=== PATIENT | female | born 1955 | race Caucasian/White ===

== ENCOUNTER 2017-07-02 08:35 | Emergency (ER) | payer OTHER ==
[~2017-07-02] VITALS: Wt 71.5 kg
[2017-07-02] MEDS ORDERED: KETOROLAC 30 MG INJ IM STA (09:55)
[2017-07-02] MEDS ORDERED: predniSONE 20 MG TAB PO ONE (10:00)
--- NOTE | 2017-07-02 11:01 | RADRPT ---
PROCEDURE: XR Lumbar Spine. CLINICAL INDICATION: Lumbar spine pain with radicular symptoms. TECHNIQUE: AP and lateral view of the lumbar spine were obtained. COMPARISON: No prior studies are available for comparison. FINDINGS: The alignment of the lumbar spine is within normal limits. There are anterior osteophytes from L2-S 1 with mild narrowing of the intervertebral disc spaces at L4-5 and L5-S1. There are mild associate d discogenic endplate changes at these levels. The vertebral body heights and marrow density are nor mal in appearance. There is moderate facet spondylosis at L4-5 and L5-S1 with suggestion of neural foraminal narrowing at these levels. The remaining neural foramina appear patent. The paraspinal s oft tissues unremarkable. There is no evidence of fracture. There are mild degenerate changes of t he interspinous articulations from L3-L5. There is mild atherosclerosis of the abdominal aorta with out evidence of aneurysm formation. Partial visualization of the pelvis demonstrates bilateral hip r eplacements. IMPRESSION: 1. Mild to moderate spondylosis/degenerative enthesopathy at L4-5 and L5-S1. 2. Moderate facet spondylosis at L4-5 and L5-S1 with suggestion of neural foraminal narrowing at th lien levels. 3. No evidence of fracture. RPTAT: HGAS .Bret Dudley MD, Date Time Electronically viewed and signed by .Bret Dudley MD, on 07/02/2017 11:00 .S/
--- NOTE | 2017-07-02 11:16 | ERD ---
ER Documentation Chief Complaint Date/Time DATE: 07/02/17 TIME: 11:14 Chief Complaint back pain rad down rle HPI This is a 62-year-old female presents emergency department today complaining of right-sided back pain that radiated down into her right leg for the past month and worse over the past 5 days. States she has a history of hip replacement. Denies any fevers or chills, loss of bowel or bladder control. ROS All systems reviewed and are negative except as per history of present illness. Medications Home Meds Reported Medications Fluticasone Propionate* (Fluticasone Propionate* Nasal) 50 Mcg/[place] - 16 Gm [place].susp, 1 SPRAY NASAL DAILY, #1 BOTTLE TO EACH NOSTRIL 07/10/17 Nitroglycerin* (Nitrostat*) 0.4 Mg Tab.subl, 0.4 MG SL Q5MIN Y for CHEST PAIN, BOTTLE 07/10/17 Diclofenac Sodium* (Diclofenac Sodium*) 75 Mg Tablet.dr, 75 MG PO BID, #60 TAB 07/10/17 Loratadine* (Loratadine*) 10 Mg Tablet, 10 MG PO DAILY, #30 TAB 07/10/17 Gabapentin* (Gabapentin*) 300 Mg Capsule, 300 MG PO DAILY, #60 CAP 07/10/17 Pantoprazole* (Pantoprazole*) 40 Mg Tablet.dr, 40 MG PO DAILY, TAB 07/10/17 Levothyroxine Sodium* (Levothyroxine Sodium*) 150 Mcg Tablet, 150 MCG PO BEFORE BREAKFAST, #30 TAB 07/10/17 Aspirin* (Aspirin* EC) 81 Mg Tablet.dr, 81 MG PO DAILY, TAB 07/10/17 Atorvastatin* (Atorvastatin*) 40 Mg Tablet, 40 MG PO QHS, #30 TAB 07/10/17 Amlodipine Besylate* (Amlodipine Besylate*) 10 Mg Tablet, 10 MG PO DAILY, #30 TAB 07/10/17 Furosemide* (Furosemide*) 20 Mg Tablet, 20 MG PO DAILY, #60 TAB 07/10/17 Losartan-Hydrochlorothiazide (Losartan-HCTZ) 100-25 Mg Tab, 1 TAB PO DAILY, TAB 07/10/17 Potassium Chloride* (Potassium Chloride*) 8 Meq Capsule.er, 8 MEQ PO DAILY, CAP 07/10/17 Carvedilol* (Carvedilol*) 6.25 Mg Tablet, 6.25 MG PO BID, #60 TAB 07/10/17 Metformin Hcl* (Metformin Hcl*) 1,000 Mg Tablet, 1000 MG PO WITH BREAKFAST DINNE , #60 TAB 07/10/17 Discontinued Scripts Prednisone* (Prednisone*) 20 Mg Tab, 40 MG PO DAILY for 4 Days, TAB Prov:MORRIS POON PA-C 07/02/17 Naproxen* (Naprosyn*) 500 Mg Tablet, 500 MG PO BID Y for PAIN AND/OR INFLAMMATION, #30 TAB Prov:MORRIS POON PA-C 07/02/17 Tramadol HCl (Tramadol HCl) 50 Mg Tablet, 50 MG PO Q4 Y for PAIN, #20 TAB Prov:MORRIS POON PA-C 07/02/17 Allergies Allergies: Coded Allergies: No Known Allergy (Unverified , 07/10/17) Physical Exam Vitals Physical Exam Const: NAD Head: Atraumatic Eyes: Normal Conjunctiva ENT: Normal External Ears, Nose and Mouth. Neck: Full range of motion..~ No meningismus. Resp: Clear to auscultation bilaterally Cardio: Regular rate and rhythm, no murmurs Abd: Soft, non tender, non distended. Normal bowel sounds Skin: No petechiae or rashes Back: Lumbar spine midline tenderness and right-sided paraspinal tenderness. Unable to assess range motion secondary to pain. Positive straight leg raise. Pulses 2+. Distal neurovascularly intact. Ext: No cyanosis, or edema Neur: Awake and alert Psych: Normal Mood and Affect Results 24 hrs Current Medications Medications (Trade) Dose Ordered Sig/Yuniel Route PRN Reason Start Time Stop Time Status Last Admin Dose Admin Ketorolac Tromethamine (Toradol) 30 mg ONCE STAT IM 07/02/17 09:55 07/02/17 09:57 DC 07/02/17 10:12 Prednisone (Prednisone) 60 mg ONCE ONCE PO 07/02/17 10:00 07/02/17 10:01 DC 07/02/17 10:10 DIAGNOSTIC IMAGING REPORT Patient: SAMEER DOAN : 1955 Age: 62 Sex: F MR #: [id number] DOS: 07/02/17 0000 Ordering MD: MORRIS POON PA-C Location: [facility] Room/Bed: PROCEDURE: XR Lumbar Spine. CLINICAL INDICATION: Lumbar spine pain with radicular symptoms. TECHNIQUE: AP and lateral view of the lumbar spine were obtained. COMPARISON: No prior studies are available for comparison. FINDINGS: The alignment of the lumbar spine is within normal limits. There are anterior osteophytes from L2-S1 with mild narrowing of the intervertebral disc spaces at L4-5 and L5-S1. There are mild associated discogenic endplate changes at these levels. The vertebral body heights and marrow density are normal in appearance. There is moderate facet spondylosis at L4-5 and L5-S1 with suggestion of neural foraminal narrowing at these levels. The remaining neural foramina appear patent. The paraspinal soft tissues unremarkable. There is no evidence of fracture. There are mild degenerate changes of the interspinous articulations from L3-L5. There is mild atherosclerosis of the abdominal aorta without evidence of aneurysm formation. Partial visualization of the pelvis demonstrates bilateral hip replacements. IMPRESSION: 1. Mild to moderate spondylosis/degenerative enthesopathy at L4-5 and L5-S1. 2. Moderate facet spondylosis at L4-5 and L5-S1 with suggestion of neural foraminal narrowing at these levels. 3. No evidence of fracture. RPTAT: HGAS .Bret Dudley MD, MD Date Time Electronically viewed and signed by .Bret Dudley MD, MD on 07/02/2017 11: 00 .S/ CC: MORRIS POON PA-C DIAGNOSTIC IMAGING REPORT Patient: SAMEER DOAN : 1955 Age: 62 Sex: F MR #: [id number] DOS: 07/02/17 0000 Ordering MD: MORRIS POON PA-C Location: [facility] Room/Bed: PROCEDURE: XR right Hip. CLINICAL INDICATION: Right hip pain. Radicular symptoms. TECHNIQUE: AP and frog lateral views of the right hip were performed. COMPARISON: None. FINDINGS: No fracture or dislocation. Intact right total hip prosthesis with anatomic alignment. Delete The right pelvis and sacroiliac joint as well as visualized lumbar spine are unremarkable. No soft tissue abnormality. IMPRESSION: 1. Intact right total hip prosthesis without evidence of hardware failure, fracture, or dislocation. RPTAT:AAJJ Physician Jonathan Date Time Electronically viewed and signed by Wally Coulter Physician on 07/02/2017 11:22 OSMAN/ CC: MORRIS POON PA-C Procedures/MDM This is a 62-year-old female presents to the emergency department today complaining of right-sided back pain and leg pain for the past month worsening over the past 5 days. Patient to have a positive straight leg raising given her complaints and age I did obtain images of the lumbar spine and hip. Per the radiology report images of the lumbar spine show mild to moderate spondylosis and degenerative changes at L4 and 5 and L5 and S1. There is moderate facet spondylosis at L4 and 5 and L5 and S1 with suggestion of neural foraminal narrowing at these levels. There is no evidence of acute fracture. This is likely the source of the patient's pain. I have explained this to the patient. I explained to the patient that she needs a follow-up with her primary care doctor and her sourcing specialist for further evaluation and management. Suspicion for cauda equina or abscess. Patient is afebrile and otherwise well-appearing. Per the radiology report images of the right hipShow intact right total hip prosthesis without evidence of hardware failure, fracture dislocation. Patient was given Toradol, prednisone here in the emergency department. Patient does have a history of diabetes however she states that her blood sugars well controlled under 110. Patient was given a prescription for tramadol , Naprosyn, prednisone for home At this time the patient is stable for discharge and outpatient management. Patient should follow up with their PCP in the next 1-2 days. They may return to the emergency department sooner for any persistent or worsening of symptoms. Patient understood and agreed with the plan. Departure Diagnosis: Primary Impression: Back pain Back pain location: low back pain Chronicity: unspecified Back pain laterality: right Sciatica presence: with sciatica Sciatica laterality: sciatica of right side Qualified Code: M54.41 - Right-sided low back pain with right-sided sciatica, unspecified chronicity Condition: MORRIS Tran PA-C Jul 02, 2017 11:16
--- NOTE | 2017-07-02 11:22 | RADRPT ---
PROCEDURE: XR right Hip. CLINICAL INDICATION: Right hip pain. Radicular symptoms. TECHNIQUE: AP and frog lateral views of the right hip were performed. COMPARISON: None. FINDINGS: No fracture or dislocation. Intact right total hip prosthesis with anatomic alignment. Delete The right pelvis and sacroiliac joint as well as visualized lumbar spine are unremarkable. No soft tis charmaine abnormality. IMPRESSION: 1. Intact right total hip prosthesis without evidence of hardware failure, fracture, or dislocation. RPTAT:AAJJ Wally Coulter Physician Date Time Electronically viewed and signed by Physician Jonathan on 07/02/2017 11:22 OSMAN/
[2017-07-02] MEDS ORDERED: TRAM50TA2 PO (12:05)
[2017-07-02] MEDS ORDERED: NAPR-260 PO (12:06)
[2017-07-02] MEDS ORDERED: PRED20TA PO (12:07)
== END 2017-07-02 12:44 | disposition home or self-care (01) ==
LOC: FTE 08:35 → EDBD 08:35 → FTE 12:44
DX: M54.41 Lumbago with sciatica, right side (principal); Z79.82 Long term (current) use of aspirin
CPT/HCPCS: 72100; 73510; 96372; J1885; J7512; Z7502

== ENCOUNTER 2017-07-10 15:14 | Inpatient (IN) | payer OTHER ==
[~2017-07-10] VITALS: Ht 160 cm; Wt 65.0 kg
[~2017-07-10 15:14] MED LIST: NAPR-260 PO; PRED20TA PO; TRAM50TA2 PO
--- NOTE | 2017-07-10 17:39 | ERA ---
ER Documentation Chief Complaint Date/Time DATE: 07/10/17 TIME: 17:37 Chief Complaint syncope while eating, alert and oriented now, c/o headache and dizziness HPI Patient is a 62-year-old female who presents with gradual onset, constant, mild to moderate diffuse headache since this morning associated with dizziness, nausea, chest pressure and shortness of breath. Prior to ER arrival, her grandson heard a thud in the kitchen, and found the patient moaning on the ground. The patient was amnestic to the events. She continues to complain of headache, shortness of breath, chest pressure, and dizziness. She denies focal weakness or numbness. She denies significant back pain. She denies fever or vomiting. ROS All systems reviewed and are negative except as per history of present illness. Medications Home Meds Reported Medications Fluticasone Propionate* (Fluticasone Propionate* Nasal) 50 Mcg/[place] - 16 Gm [place].susp, 1 SPRAY NASAL DAILY, #1 BOTTLE TO EACH NOSTRIL 07/10/17 Nitroglycerin* (Nitrostat*) 0.4 Mg Tab.subl, 0.4 MG SL Q5MIN Y for CHEST PAIN, BOTTLE 07/10/17 Diclofenac Sodium* (Diclofenac Sodium*) 75 Mg Tablet.dr, 75 MG PO BID, #60 TAB 07/10/17 Loratadine* (Loratadine*) 10 Mg Tablet, 10 MG PO DAILY, #30 TAB 07/10/17 Gabapentin* (Gabapentin*) 300 Mg Capsule, 300 MG PO DAILY, #60 CAP 07/10/17 Pantoprazole* (Pantoprazole*) 40 Mg Tablet.dr, 40 MG PO DAILY, TAB 07/10/17 Levothyroxine Sodium* (Levothyroxine Sodium*) 150 Mcg Tablet, 150 MCG PO BEFORE BREAKFAST, #30 TAB 07/10/17 Aspirin* (Aspirin* EC) 81 Mg Tablet.dr, 81 MG PO DAILY, TAB 07/10/17 Atorvastatin* (Atorvastatin*) 40 Mg Tablet, 40 MG PO QHS, #30 TAB 07/10/17 Amlodipine Besylate* (Amlodipine Besylate*) 10 Mg Tablet, 10 MG PO DAILY, #30 TAB 07/10/17 Furosemide* (Furosemide*) 20 Mg Tablet, 20 MG PO DAILY, #60 TAB 07/10/17 Losartan-Hydrochlorothiazide (Losartan-HCTZ) 100-25 Mg Tab, 1 TAB PO DAILY, TAB 07/10/17 Potassium Chloride* (Potassium Chloride*) 8 Meq Capsule.er, 8 MEQ PO DAILY, CAP 07/10/17 Carvedilol* (Carvedilol*) 6.25 Mg Tablet, 6.25 MG PO BID, #60 TAB 07/10/17 Metformin Hcl* (Metformin Hcl*) 1,000 Mg Tablet, 1000 MG PO WITH BREAKFAST DINNE , #60 TAB 07/10/17 Discontinued Scripts Prednisone* (Prednisone*) 20 Mg Tab, 40 MG PO DAILY for 4 Days, TAB Prov:MORRIS POON PA-C 07/02/17 Naproxen* (Naprosyn*) 500 Mg Tablet, 500 MG PO BID Y for PAIN AND/OR INFLAMMATION, #30 TAB Prov:MORRIS POON PA-C 07/02/17 Tramadol HCl (Tramadol HCl) 50 Mg Tablet, 50 MG PO Q4 Y for PAIN, #20 TAB Prov:MORRIS POON PA-C 07/02/17 Allergies Allergies: Coded Allergies: No Known Allergy (Unverified , 07/10/17) PMhx/Soc Past medical history: Diabetes mellitus, hypertension, hyperlipidemia Past surgical history: Bilateral hip replacement Social history: Denies tobacco or alcohol FmHx Family History: No coronary disease, No diabetes Physical Exam Vitals Vital Signs Date Time Temp Pulse Resp B/P Pulse Ox O2 Delivery O2 Flow Rate FiO2 07/10/17 20:41 100.8 72 20 109/80 99 Room Air 07/10/17 18:42 74 20 128/77 99 Room Air 07/10/17 17:52 74 20 116/71 99 Room Air 07/10/17 15:34 100.8 91 18 118/55 98 Physical Exam Const: Alert, slightly lethargic, no acute distress Head: Atraumatic Eyes: Normal Conjunctiva, No pallor, no icterus ENT: Normal External Ears, Nose and Mouth.Mucous membranes moist Neck: Full range of motion..~ No meningismus.No midline tenderness Resp: Clear to auscultation bilaterally, No wheezes, no rales Cardio: Regular rate and rhythm, no murmurs Abd: Soft, non tender, non distended. Skin: No petechiae or rashes Back: No midline or flank tenderness Ext: No cyanosis, or edema Neur: Awake and alert, Cranial nerves II through XII intact bilaterally, strength and sensation full in 4 extremities, no pronator drift, no dysmetria. Psych: Normal Mood and Affect Result Diagram: 07/10/17 1740 07/10/17 1740 Results 24 hrs Laboratory Tests Test 07/10/17 17:40 07/10/17 18:55 07/10/17 19:39 07/10/17 19:40 White Blood Count 21.510^3/ul Red Blood Count 5.1810^6/ul Hemoglobin 13.3g/dl Hematocrit 38.8% Mean Corpuscular Volume 74.9fl Mean Corpuscular Hemoglobin 25.7pg Mean Corpuscular Hemoglobin Concent 34.3g/dl Red Cell Distribution Width 14.1% Platelet Count 97967^3/UL Mean Platelet Volume 10.0fl Neutrophils % 83.7% Lymphocytes % 7.7% Monocytes % 7.9% Eosinophils % 0.0% Basophils % 0.1% Nucleated Red Blood Cells % 0.0/100WBC Neutrophils # (Manual) 18.010^3/ul Lymphocytes # 1.710^3/ul Monocytes # 1.710^3/ul Eosinophils # 0.010^3/ul Basophils # 0.010^3/ul Nucleated Red Blood Cells # 0.010^3/ul Prothrombin Time 13.7Sec 13.9Sec Prothrombin Time Ratio 1.1 1.1 INR International Normalized Ratio 1.05 1.07 Activated Partial Thromboplast Time 28.2Sec 29.0Sec D-Dimer 545.40ng/ml D-Dimer Comment Sodium Level 131mmol/L Potassium Level 2.9mmol/L Chloride Level 91mmol/L Carbon Dioxide Level 29mmol/L Anion Gap 14 Blood Urea Nitrogen 11mg/dl Creatinine 0.65mg/dl Glucose Level 132mg/dl Calcium Level 9.1mg/dl Troponin I < 0.012ng/ml B-Type Natriuretic Peptide 180PG/ML Urine Color YELLOW Urine Clarity SLIGHTLY CLOUDY Urine pH 7.0 Urine Specific [place] 1.011 Urine Ketones NEGATIVEmg/dL Urine Nitrite POSITIVEmg/dL Urine Bilirubin NEGATIVEmg/dL Urine Urobilinogen NEGATIVEmg/dL Urine Leukocyte Esterase 2+Ryne/ul Urine Microscopic RBC 0/HPF Urine Microscopic WBC 28/HPF Urine Bacteria FEW/HPF Urine Hemoglobin NEGATIVEmg/dL Urine Glucose NEGATIVEmg/dL Urine Total Protein NEGATIVEmg/dl Bedside Glucose 115mg/dL Test 07/10/17 19:45 Lactic Acid Level 1.5mmol/L Total Bilirubin 0.4mg/dl Direct Bilirubin 0.00mg/dl Indirect Bilirubin 0.4mg/dl Aspartate Amino Transf (AST/SGOT) 24IU/L Alanine Aminotransferase (ALT/SGPT) 28IU/L Alkaline Phosphatase 102IU/L Total Protein 7.3g/dl Albumin 4.1g/dl Current Medications Medications (Trade) Dose Ordered Sig/Yuniel Route PRN Reason Start Time Stop Time Status Last Admin Dose Admin Sodium Chloride 2140 ml 2,140 ml BOLUS OVER 2 HOURS STAT IV* 07/10/17 18:26 07/10/17 18:28 DC 07/10/17 18:51 Ceftriaxone Sodium 50 ml @ 100 mls/hr ONCE STAT IVPB 07/10/17 18:26 07/10/17 18:55 DC 07/10/17 19:40 Potassium Chloride (KCl 40 MEQ/250 ML NS) 250 ml @ 62.5 mls/hr ONCE ONCE IVPB 07/10/17 21:30 07/11/17 01:29 07/10/17 21:34 Ondansetron HCl (Zofran Inj) 4 mg ER BRIDGE PRN IV NAUSEA AND/OR VOMITING 07/10/17 22:30 07/11/17 22:29 Acetaminophen 650 mg 650 mg ER BRIDGE PRN PO MILD PAIN/FEVER 07/10/17 22:30 07/11/17 22:29 Sodium Chloride (NS) 1,000 ml @ 80 mls/hr [id number] IV 07/10/17 22:15 IV Flush (NS 3 ml) 3 ml PER PROTOCOL IV 07/10/17 22:30 Ondansetron HCl (Zofran Inj) 4 mg Q6H PRN IV NAUSEA AND/OR VOMITING 07/10/17 22:30 Acetaminophen (Tylenol Tab) 650 mg Q6H PRN PO PAIN LEVEL 1-3 OR FEVER 07/10/17 22:30 Docusate Sodium (Colace) 100 mg Q12H PRN PO CONSTIPATION 07/10/17 22:30 Bisacodyl (Dulcolax) 5 mg DAILY PRN PO CONSTIPATION 07/10/17 22:30 Famotidine (Pepcid) 20 mg Q12 PO 07/10/17 22:30 Potassium Chloride (Klor-Con 20) 40 meq ONCE ONCE PO 07/10/17 22:33 07/10/17 22:34 DC Amlodipine Besylate (Norvasc) 10 mg DAILY PO 07/11/17 09:00 Aspirin (Halfprin) 81 mg DAILY PO 07/11/17 09:00 Atorvastatin Calcium (Lipitor) 40 mg QHS PO 07/11/17 21:00 Fluticasone Propionate (Flonase 0.05% Nasal) 1 spray DAILY NASAL 07/11/17 09:00 Gabapentin (Neurontin) 300 mg DAILY PO 07/11/17 09:00 Levothyroxine Sodium (Synthroid) 150 mcg BEFORE BREAKFAST PO 07/11/17 07:00 Loratadine (Claritin) 10 mg DAILY PO 07/11/17 09:00 Procedures/MDM EKG read by me: Time 1536, rate 89 Rhythm: Normal sinus [place]: Left axis deviation Intervals: Left bundle branch block, prolonged QTC ST-T waves: No scar posterior criteria Ectopy: No Q-waves: No Impression: Sinus rhythm with left bundle branch block MDM: Patient is a 62-year-old female with brief syncopal episode at home. She had been feelingnauseous, short of breath and had a headache prior to the episode. There is no evidence of injury related to the episode. On arrival in the ER, she was noted to have a fever to 100.8. She was also found to have a significant leukocytosis. She had normal heart rate and blood pressure. She was found to have a UTI. Sepsis protocol was initiated, with weight-based fluids and antibiotics given, culture sent, and lactic acid check. Lactic acid is not elevated. A head CT was unremarkable, and the patient had no focal neurological deficit. The patient was nexus negative. Other labs revealed hypokalemia, and the patient was given IV potassium. The patient had a negative troponin and a d-dimer less than 10 times age. Given that she was found to have a urinary tract infection which I believe explains many of her symptoms, I do not believe that she needs further workup for pulmonary embolism. She will be admitted to a monitored bed for further infectious workup and electrolyte correction. She appeared improved after receiving IV fluids and has had stable vital signs. Departure Diagnosis: Primary Impression: Syncope Qualified Code: R55 - Syncope, unspecified syncope type Additional Impressions: Pyelonephritis Hypokalemia Condition: RIKA Jones MD Jul 10, 2017 17:39
[2017-07-10 17:52] LABS: ABNORMAL IP MESSAGE 1; BASOPHILS % 0.1 % (0.0-2.0); HEMATOCRIT 38.8 % (37.0-47.0); HEMOGLOBIN 13.3 g/dl (12.0-16.0); LYMPHOCYTES # 1.7 10^3/ul (0.8-2.9); LYMPHOCYTES % 7.7 % (15.0-51.0); MEAN CORPUSCULAR HEMOGLOBIN 25.7 pg (29.0-33.0); MEAN CORPUSCULAR HGB CONC 34.3 g/dl (32.0-37.0); MEAN CORPUSCULAR VOLUME 74.9 fl (82.0-101.0); MONOCYTE # 1.7 10^3/ul (0.3-0.9); MONOCYTES % 7.9 % (0.0-11.0); NEUTROPHILS % 83.7 % (39.0-77.0); PLATELET COUNT 327 10^3/UL (140-415); RED BLOOD COUNT 5.18 10^6/ul (4.20-5.40); RED CELL DISTRIBUTION WIDTH 14.1 % (11.5-14.5); WHITE BLOOD COUNT 21.5 10^3/ul (4.8-10.8)
[2017-07-10 18:07] LABS: POSITIVE DIFF @See below
[2017-07-10] MEDS ORDERED: CEFTRIAXONE 1 GM/50 ML (PMX) 50 ML IVPB STA (18:26)
[2017-07-10] MEDS ORDERED: SODIUM CHLORIDE 0.9% 1L BAG IV* STA (18:26)
[2017-07-10 19:02] LABS: D-DIMER 545.4 ng/ml (<460)
[2017-07-10 19:03] LABS: INR 1.05; PROTIME 13.7 Sec (12.2-14.2); PT RATIO 1.1
[2017-07-10 19:04] LABS: PARTIAL THROMBOPLASTIN TIME 28.2 Sec (25.0-35.0)
--- NOTE | 2017-07-10 19:04 | RADRPT ---
PROCEDURE: CT Head without. CLINICAL INDICATION: Syncope. TECHNIQUE: The study was performed utilizing a multi-slice, multidetector CT scanner. Direct spira l 1 mm axial sections were obtained through the head without the use of intravenous contrast materia l. 1 or more of the following dose reduction techniques were utilized: Automated exposure control, adjustment of the mA and/or kV according to patient's size, iterative reconstruction technique. Co christiano and sagittal reformations were obtained. The images were reviewed on a PACS workstation. RADIATION DOSE: CTDIvol: 43.1 mGyDLP: 823.9 mGy-cm COMPARISON: No prior studies are available for comparison. FINDINGS: There is no intracranial hemorrhage, extra-axial fluid collection, mass lesion, midline shift or hyd rocephalus. There is a benign-appearing calcification along the inner table of the right frontal ca lvarium (coronal series image 16), which may be related to focal area of hyperostosis. The ventricle s, sulci and cisterns are within normal limits. The white matter is unremarkable. The marcos-white m atter differentiation is preserved. The basal cisterns are patent. The midline structures are inta ct. The orbits, calvarium and extracranial soft tissues are normal in appearance. The visualized pa ranasal sinuses, mastoid air cells and middle ear cavities are normally aerated. IMPRESSION: 1. No acute intracranial abnormality. No intracranial hemorrhage, extra-axial fluid collection, ma ss lesion or hydrocephalous. 2. Benign appearing calcification overlying the right frontal lobe, which may be related to a small meningioma versus focal area of hyperostosis. RPTAT: HGAS .Bret Dudley MD, Date Time Electronically viewed and signed by .Bret Dudley MD, on 07/10/2017 18:51 .S/
--- NOTE | 2017-07-10 19:04 | RADRPT ---
PROCEDURE: XR Chest 1 View. CLINICAL INDICATION: Shortness of breath, syncope. TECHNIQUE: AP view of the chest was obtained. COMPARISON: None. FINDINGS: The cardiomediastinal silhouette is within normal limits. The lungs are hypoinflated. No consolidati ons are identified. No pneumothorax is seen. Osseous structures are intact. IMPRESSION: Hypoinflated, clear lungs. RPTAT: AA .Herve Mari MD, Date Time Electronically viewed and signed by .Herve Mari MD, MD on 07/10/2017 18:25 .P/
[2017-07-10 19:11] LABS: ANION GAP 14 (8-16); BLOOD UREA NITROGEN 11 mg/dl (7-20); CALCIUM 9.1 mg/dl (8.4-10.2); CARBON DIOXIDE 29 mmol/L (21-31); CHLORIDE 91 mmol/L (97-110); CREATININE 0.65 mg/dl (0.44-1.00); GLUCOSE 132 mg/dl (70-220); SODIUM 131 mmol/L (135-144)
[2017-07-10 19:19] LABS: B-TYPE NATRIURETIC PEPTIDE 180 PG/ML (0-125)
[2017-07-10] MEDS ORDERED: POTA8CAP PO (19:22)
[2017-07-10] MEDS ORDERED: METF1000 PO (19:22)
[2017-07-10] MEDS ORDERED: CARV6.2579 PO (19:22)
[2017-07-10] MEDS ORDERED: AMLO-147 PO (19:23)
[2017-07-10] MEDS ORDERED: LOSA1TAB20 PO (19:23)
[2017-07-10] MEDS ORDERED: FURO20TA3 PO (19:23)
[2017-07-10] MEDS ORDERED: ATOR40TA68 PO (19:24)
[2017-07-10] MEDS ORDERED: LEVO150T67 PO (19:24)
[2017-07-10] MEDS ORDERED: ASPI-664 PO (19:24)
[2017-07-10] MEDS ORDERED: PANT40TA4 PO (19:25)
[2017-07-10] MEDS ORDERED: GABA300C16 PO (19:25)
[2017-07-10] MEDS ORDERED: LORA10TA3 PO (19:26)
[2017-07-10] MEDS ORDERED: NIT4 SL (19:26)
[2017-07-10] MEDS ORDERED: DICL75TA2 PO (19:26)
[2017-07-10 19:27] LABS: POTASSIUM 2.9 mmol/L (3.5-5.1); TROPONIN-I < 0.012 ng/ml (0.00-0.12)
[2017-07-10] MEDS ORDERED: FLUT16SP17 NASAL (19:27)
[2017-07-10 19:44] LABS: ADD UMIC YES; UR ASCORBIC ACID NEGATIVE (NEGATIVE); UR BACTERIA FEW /HPF (NONE SEEN); UR BILIRUBIN (Dip) NEGATIVE (NEGATIVE); UR BLOOD (Dip) NEGATIVE (NEGATIVE); UR CLARITY SLIGHTLY CLOUDY (CLEAR); UR COLOR YELLOW (YELLOW); UR GLUCOSE (Dip) NEGATIVE (NEGATIVE); UR KETONES (Dip) NEGATIVE (NEGATIVE); UR LEUKOCYTE ESTERASE (Dip) 2+ Leu/ul (NEGATIVE); UR NITRITE (Dip) POSITIVE (NEGATIVE); UR RBC 0 /HPF (0-5); UR SPECIFIC GRAVITY (Dip) 1.011 (1.003-1.030); UR TOTAL PROTEIN (Dip) NEGATIVE (NEGATIVE); UR UROBILINOGEN (Dip) NEGATIVE (NEGATIVE)
[2017-07-10 20:07] LABS: ALBUMIN 4.1 g/dl (3.3-4.9); BILIRUBIN,INDIRECT 0.4 mg/dl (0-1.1); BILIRUBIN,TOTAL 0.4 mg/dl (0.2-1.3); TOTAL PROTEIN 7.3 g/dl (6.1-8.1)
[2017-07-10 20:11] LABS: INR 1.07; PROTIME 13.9 Sec (12.2-14.2); PT RATIO 1.1
[2017-07-10 20:41] VITALS: TEMP 100.8
[2017-07-10] MEDS ORDERED: POTASSIUM CHLORIDE 250 ML IVPB ONE (21:30)
[2017-07-10] MEDS ORDERED: NACL 0.9% 3 ML SYG IV SCH (22:30)
[2017-07-10] MEDS ORDERED: BISACODYL (EC) 5 MG TAB PO PRN (22:30)
[2017-07-10] MEDS ORDERED: DOCUSATE SODIUM 100 MG CAP PO PRN (22:30)
[2017-07-10] MEDS ORDERED: ACETAMINOPHEN 325 MG TAB PO PRN (22:30)
[2017-07-10] MEDS ORDERED: ONDANSETRON 4 MG INJ IV PRN ×2 (22:30)
[2017-07-10] MEDS ORDERED: POTASSIUM CHLORIDE (SR) 20 MEQ TAB PO ONE (22:33)
--- NOTE | 2017-07-10 23:27 | RADRPT ---
PROCEDURE: ULTRASOUND OF THE CAROTID ARTERIES: CLINICAL INDICATION: 62 years of age, female , syncope . COMPARISON: None available. TECHNIQUE: Dedicated color and spectral Doppler sonographic images of the carotid arterial systems w ere obtained. FINDINGS: The right common carotid, internal carotid and external carotid arteries are patent with mild athero sclerotic plaque at the carotid bulb. The left common carotid, internal carotid and external carotid arteries are patent with mild atheros clerotic plaque at the carotid bulb. Flow within the external carotid and vertebral arteries is antegrade. Additional comment: None. Location and Parameter Right Left CCA PSV (cm/sec) 108 121 ICA PSV proximal (cm/sec) 80 55 ICA PSV mid (cm/sec) 91 94 ICS PSV distal (cm/sec) 77 76 ICA/CCA peak systolic ratio 1 0.9 ICA EDV (cm/sec) 33 33 ECA PSV (cm/sec) 109 91 IMPRESSION: No significant plaque or hemodynamically significant stenosis is identified in either right or left internal carotid artery. Validated velocity measurements with angiographic measurements: velocity cr iteria are extrapolated from diameter data as defined by the Society of Radiologists in Ultrasound C onsensus Conference Radiology 2003; 229; 340-346. This study does indirectly reference the measureme nt of the distal ICA diameter as the denominator for stenosis measurement. Estimated degree of stenosis is based on Society of Radiologists in Ultrasound Consensus Conference with parameters as follows::* Normal: ICA PSV < 125 cm/s, Plaque estimate none, ICA/CCA ratio < 2, ICA EDV < 40 cm/s <50% Stenosis: ICA PSV < 125 cm/s, Plaque estimate < 50%, ICA/CCA ratio < 2, ICA EDV < 40 cm/s 50-69% Stenosis: ICA PSV 125-230 cm/s, Plaque estimate > 50%, ICA/CCA ratio 2-4, ICA EDV 40-100 cm/s 70% or greater but less than near occlusion: ICA PSV > 230 cm/s, Plaque estimate > 50%, ICA/CCA ratio > 4, ICA EDV > 100 cm/s Near occlusion: High, low or undetectable ICA flow, Plaque visible, ICA/CCA ratio variable, ICA EDV variable. Total occlusion: Undetectable ICA flow and plaque visible. * Reference: Josh HERR et al. Carotid Artery Stenosis: Gordon-scale and Doppler Ultrasound Diagnosis-So ciety of Radiologists in Ultrasound Consensus Conference. Radiology 2003; 229:340-346. RPTAT: HCTS Irene Pierre, Physician Date Time Electronically viewed and signed by Irene Pierre, Physician on 07/10/2017 23:26 /
[2017-07-10 23:28] LABS: CREATINE KINASE 43 IU/L (23-200)
[2017-07-10 23:41] LABS: CK-MB 0.34 ng/ml (0.0-2.4)
[2017-07-10 23:42] LABS: TROPONIN-I < 0.012 ng/ml (0.00-0.12)
[2017-07-11] VITALS (44 sets, daily range): BP systolic 67–125; BP diastolic 28–72; PULSE 49–108; RESP 14–30; Ht 160 cm; Wt 65.0 kg
[2017-07-11] MEDS: FAMOTIDINE 20 MG TAB PO SCH ×3 (00:14→21:24)
[2017-07-11] MEDS: SOD CHLORIDE 0.9% 1,000 ML IV SCH ×2 (00:15→10:45)
[2017-07-11] MEDS ORDERED: MAGNESIUM SULFATE 1 GM/D5W 100 ML IVPB ONE ×2 (01:00→03:30)
[2017-07-11] MEDS ORDERED: ATROPINE 1 MG/10 ML SYRINGE IV ONE (02:17)
[2017-07-11 02:46] LABS: POTASSIUM 3.5 mmol/L (3.5-5.1)
[2017-07-11] MEDS ORDERED: POTASSIUM CHLORIDE 250 ML IVPB ONE (03:30)
[2017-07-11] MEDS ORDERED: GLUCOSE GEL 15 GRAM TUBE BUCCAL PRN (04:30)
[2017-07-11] MEDS ORDERED: DEXTROSE 50% 50 ML SYRINGE IV PRN ×2 (04:30)
[2017-07-11] MEDS ORDERED: GLUCOSE GEL 15 GRAM TUBE PO PRN ×2 (04:30)
[2017-07-11] MEDS ORDERED: GLUCAGON 1 MG INJ IM PRN (04:30)
[2017-07-11] MEDS: ACETAMINOPHEN 325 MG TAB PO PRN ×3 (05:08→19:57)
[2017-07-11 05:45] LABS: ABNORMAL IP MESSAGE 1; BASOPHILS % 0.1 % (0.0-2.0); HEMATOCRIT 33.4 % (37.0-47.0); HEMOGLOBIN 11.1 g/dl (12.0-16.0); LYMPHOCYTES # 1.8 10^3/ul (0.8-2.9); LYMPHOCYTES % 11.7 % (15.0-51.0); MEAN CORPUSCULAR HEMOGLOBIN 25.6 pg (29.0-33.0); MEAN CORPUSCULAR HGB CONC 33.2 g/dl (32.0-37.0); MEAN PLATELET VOLUME 10.1 fl (7.4-10.4); MONOCYTE # 1.6 10^3/ul (0.3-0.9); MONOCYTES % 10.4 % (0.0-11.0); NEUTROPHILS % 77.5 % (39.0-77.0); PLATELET COUNT 278 10^3/UL (140-415); RED BLOOD COUNT 4.34 10^6/ul (4.20-5.40); RED CELL DISTRIBUTION WIDTH 14.7 % (11.5-14.5); WHITE BLOOD COUNT 14.9 10^3/ul (4.8-10.8)
[2017-07-11 06:12] LABS: POSITIVE DIFF @See below
[2017-07-11 06:14] LABS: CK-MB 0.46 ng/ml (0.0-2.4); TROPONIN-I 0.013 ng/ml (0.00-0.12)
[2017-07-11 06:17] LABS: ALANINE AMINOTRANSFERASE 31 IU/L (13-69); ALBUMIN/GLOBULIN RATIO 1.11; ALKALINE PHOSPHATASE 72 IU/L (42-121); ANION GAP 7 (8-16); ASPARTATE AMINO TRANSFERASE 16 IU/L (15-46); BILIRUBIN,INDIRECT 0.3 mg/dl (0-1.1); BILIRUBIN,TOTAL 0.3 mg/dl (0.2-1.3); BLOOD UREA NITROGEN 8 mg/dl (7-20); CARBON DIOXIDE 28 mmol/L (21-31); CHLORIDE 104 mmol/L (97-110); CHOL/HDL RATIO 2.7 RATIO; CHOLESTEROL 98 mg/dl (100-200); GLUCOSE 145 mg/dl (70-220); HDL CHOLESTEROL 36 mg/dl (35-98); MAGNESIUM 2.1 mg/dl (1.7-2.5); POTASSIUM 3.9 mmol/L (3.5-5.1); SODIUM 135 mmol/L (135-144); TOTAL PROTEIN 5.7 g/dl (6.1-8.1); TRIGLYCERIDES 82 mg/dl (0-149)
--- NOTE | 2017-07-11 06:43 | HP ---
Date/Time of Note Date/Time of Note DATE: 07/11/17 TIME: 06:23 Assessment/Plan VTE Prophylaxis VTE Prophylaxis Intervention: SCD's Lines/Catheters IV Catheter Type (from [email or web address] Saline Lock Urinary Cath still in place: No Assessment/Plan Chief Complaint/Hosp Course This is a 62-year-old female being admitted to the ICU floor for: #1 Syncope: Neurocardiogenic and/or cardiac and/or infectious etiology. We will continue telemetry monitoring in the ICU. She is currently running a sinus rhythm. Receive a dose of atropine for sinus bradycardia. Will check orthostatics. Continue IV antibiotics for urinary tract infection. Will order 2D echocardiogram. Will consult cardiology. Will check carotid Dopplers. Continue electrolyte repletion and repeat testing. She denies any previous history of cardiac stents or heart attack or heart failure though she is on medications such as Lasix and beta-diane. Will check an echocardiogram to assess her heart morphology. #2 arrhythmias: Patient went into multiple different arrhythmias ranging from sinus tachycardia to sinus bradycardia as well as second-degree heart block. She did receive atropine for her sinus bradycardia. At the current time patient remains in some rhythm. Will continue telemetry monitoring. Will monitor electrolytes and replete. Potassium was 2.9 initially and it was repleted. Magnesium is 2.0. Consult cardiology. A 2D echocardiogram. #3 urinary tract infection: Ceftriaxone IV. Await urine culture results for sensitivities #4 diabetes mellitus: Insulin sliding scale #5 hypothyroidism: We will check a TSH, continue home levothyroxine dose. #6 hypertension: We will hold home dose of Lasix and hold carvedilol and calcium channel diane secondary to the patient's arrhythmias hypokalemia #7 hypokalemia: Likely secondary to Lasix and contributing possibly to the arrhythmias will hold Lasix at this time replete potassium. #8 DVT and GI prophylaxis: SCD, acid diane Further Treatment strategy will be implemented as per the clinical course. Greater than 60 minutes of critical care time was spent on the care and management and assessment and plan of this patient Problems: HPI/ROS Admit Date/Time Admit Date/Time Jul 10, 2017 at 22:15 Hx of Present Illness Chief complaint: Fainted at home This is a 62-year-old female who presents with gradual onset, constant, mild to moderate diffuse headache since this morning associated with dizziness, nausea, chest pressure and shortness of breath. Prior to ER arrival, her grandson heard a thud in the kitchen, and found the patient moaning on the ground. The patient was amnestic to the events. She continues to complain of headache, shortness of breath, chest pressure, and dizziness. She denies focal weakness or numbness. She denies significant back pain. She denies fever or vomiting. Upon admission to the telemetry floor patient was noted to go into sinus bradycardia and was complaining of a headache. She was given atropine 0.5 mg IV 1 subsequently resulted in improvement of the heart rate. She later went into sinus tachycardia and then eventually into second-degree heart block. At this point is patient's will going to various arrhythmias she was transferred to the ICU for further monitoring. Of note upon admission her potassium was 2.9 which was repleted and she was also given a milligram of magnesium. Allergies: NKDA Medications: See EUSEBIO COLLAZO Const: As per HPI Eyes : No pain discharge or redness or change in visual acuity ENT: No pain, sore throat, congestion, congestion, dysphagia or discharge Respiratory: No shortness of breath, cough, sputum, wheezing, or pleuritic pain Cardiovascular: As per HPI GI : no change in appetite, abdominal pain, nausea, vomiting, diarrhea, constipation, or change in the color his stool Genitourinary: As per HPI Musculoskeletal: No joint pain, back pain, neck pain, restricted range of motion in neck or joints Skin: No rash, bruising or hives Neuro: As per HPI Endocrine: No polyuria, polydipsia, temperature intolerance Psych: No hallucination, depression, anxiety or suicidal ideation PMH/Family/Social Past Medical History Beatties mellitus, hypothyroidism, hypertension, arthritis Past Surgical History Bilateral hip surgery, left knee surgery, 1 Family History Significant Family History: hypertension (Dad) Social History Alcohol Use: none Smoking Status: Never smoker Drug Use: none Exam/Review of Systems Vital Signs Vitals Vital Signs Date Time Temp Pulse Resp B/P Pulse Ox O2 Delivery O2 Flow Rate FiO2 07/11/17 05:00 76 20 91/52 96 Room Air 07/11/17 03:00 102.1 07/11/17 03:00 3.0 Intake and Output 07/10/17 07/10/17 07/11/17 15:00 23:00 07:00 Intake Total 385.0 ml Output Total 500 ml Balance -115.0 ml Exam Exam General: Patient is well-developed female lying in bed. She was complaining of a mild headache however it has since resolved after receiving Tylenol. HEENT: Atraumatic, normocephalic. The pupils are equal, round and reactive. Extraocular motor are intact Neck: Supple with full range of motion. No rigidity or meningismus Chest: Nontender Lungs: Clear to auscultation bilaterally no crackles rales or wheezing Heart: Current time patient is in sinus rhythm, no overt murmurs appreciated. Regular rate rhythm Abdomen: Soft , nontender, nondistended , bowel sounds are present. No guarding no rebound tenderness , No masses or organomegaly. No costovertebral temporal angle mass Extremities: Normal to inspection, no edema no cyanosis Neurologic: Normal mental status, speech normal, cranial nerves II through XII are intact, motor and sensory are intact, no focal weakness Additional Comments EKG on admission Rhythm: Normal sinus [place]: Left axis deviation Intervals: Left bundle branch block, prolonged QTC ST-T waves: No scar posterior criteria Ectopy: No Q-waves: No Impression: Sinus rhythm with left bundle branch block As per the physician documentationPROCEDURE: XR Chest 1 View. CLINICAL INDICATION: Shortness of breath, syncope. TECHNIQUE: AP view of the chest was obtained. COMPARISON: None. FINDINGS: The cardiomediastinal silhouette is within normal limits. The lungs are hypoinflated. No consolidations are identified. No pneumothorax is seen. Osseous structures are intact. IMPRESSION: Hypoinflated, clear lungs. RPTAT: AA .Herve Mari MD, MD Date Time Electronically viewed and signed by .Herve Mari MD, MD on 07/10/2017 18:25 .P/ CC: RIKA OWEN MD PROCEDURE: CT Head without. CLINICAL INDICATION: Syncope. TECHNIQUE: The study was performed utilizing a multi-slice, multidetector CT scanner. Direct spiral 1 mm axial sections were obtained through the head without the use of intravenous contrast material. 1 or more of the following dose reduction techniques were utilized: Automated exposure control, adjustment of the mA and/or kV according to patient's size, iterative reconstruction technique. Coronal and sagittal reformations were obtained. The images were reviewed on a PACS workstation. RADIATION DOSE: CTDIvol: 43.1 mGy DLP: 823.9 mGy-cm COMPARISON: No prior studies are available for comparison. FINDINGS: There is no intracranial hemorrhage, extra-axial fluid collection, mass lesion, midline shift or hydrocephalus. There is a benign-appearing calcification along the inner table of the right frontal calvarium (coronal series image 16), which may be related to focal area of hyperostosis. The ventricles, sulci and cisterns are within normal limits. The white matter is unremarkable. The marcos- white matter differentiation is preserved. The basal cisterns are patent. The midline structures are intact. The orbits, calvarium and extracranial soft tissues are normal in appearance. The visualized paranasal sinuses, mastoid air cells and middle ear cavities are normally aerated. IMPRESSION: 1. No acute intracranial abnormality. No intracranial hemorrhage, extra-axial fluid collection, mass lesion or hydrocephalous. 2. Benign appearing calcification overlying the right frontal lobe, which may be related to a small meningioma versus focal area of hyperostosis. RPTAT: HGAS .Bret Dudley MD, MD Date Time Electronically viewed and signed by .Bret Dudley MD, MD on 07/10/2017 18: 51 .S/ CC: RIKA OWEN MD Labs Result Diagram: 07/11/1752007/11/17520 Medications Medications Current Medications Sodium Chloride (NS) 1,000 ml @ 80 mls/hr [id number] IV Last administered on t 00:15; Admin Dose 80 MLS/HR; Start 07/10/17 at 22:15 Ondansetron HCl (Zofran Inj) 4 mg Q6H PRN IV NAUSEA AND/OR VOMITING; Start 07/10 at 22:30 Acetaminophen (Tylenol Tab) 650 mg Q6H PRN PO PAIN LEVEL 1-3 OR FEVER Last administered on 07/11/17 05:08; Admin Dose 650 MG; Start 07/10/17 at 22:30 Docusate Sodium (Colace) 100 mg Q12H PRN PO CONSTIPATION; Start 07/10/17 at 22: 30 Bisacodyl (Dulcolax) 5 mg DAILY PRN PO CONSTIPATION; Start 07/10/17 at 22:30 Famotidine (Pepcid) 20 mg Q12 PO Last administered on 07/11/17 00:14; Admin Dose 20 MG; Start 07/10/17 at 22:30 Aspirin (Halfprin) 81 mg DAILY PO ; Start 07/11/17 at 09:00 Atorvastatin Calcium (Lipitor) 40 mg QHS PO ; Start 07/11/17 at 21:00 Fluticasone Propionate 1 spray 1 spray DAILY NASAL ; Start 07/11/17 at 09:00 Potassium Chloride (KCl 40 MEQ/250 ML NS) 250 ml @ 62.5 mls/hr ONCE ONCE IVPB Last administered on 07/11/17 03:39; Admin Dose 62.5 MLS/HR; Start 07/11/17 at 03:30; Stop 07/11/17 at 07:29 Diagnostic Test (Pha) (Accu-Chek) 1 ea 02 XX ; Start 07/12/17 at 02:00 Miscellaneous Information 1 ea NOTE XX ; Start 07/11/17 at 04:30 Glucose (Glutose) 15 gm Q15M PRN PO DECREASED GLUCOSE; Start 07/11/17 at 04:30 Glucose (Glutose) 22.5 gm Q15M PRN PO DECREASED GLUCOSE; Start 07/11/17 at 04:30 Dextrose (D50w Syringe) 25 ml Q15M PRN IV DECREASED GLUCOSE; Start 07/11/17 at 04:30 Dextrose (D50w Syringe) 50 ml Q15M PRN IV DECREASED GLUCOSE; Start 07/11/17 at 04:30 Glucagon (Glucagen) 1 mg Q15M PRN IM DECREASED GLUCOSE; Start 07/11/17 at 04:30 Glucose (Glutose) 15 gm Q15M PRN BUCCAL DECREASED GLUCOSE; Start 07/11/17 at 04: 30 IDA GEORGE Jul 11, 2017 06:33
[2017-07-11 06:44] LABS: THYROID STIMULATING HORMONE < 0.015 MIU/L (0.465-4.680)
[2017-07-11] MEDS ORDERED: LEVOTHYROXINE 150 MCG TAB PO SCH (07:00)
[2017-07-11] MEDS: INSULIN ASPART [NOVOLOG] 3 ML PEN SC SCH ×4 (07:35→21:00)
[2017-07-11] MEDS: ASPIRIN (EC) 81 MG TAB PO SCH (08:54)
[2017-07-11] MEDS: FLUTICASONE 0.05% 16 GM NAS SPRAY NASAL SCH (08:55)
[2017-07-11] MEDS ORDERED: AMLODIPINE 10 MG TAB PO SCH (09:00)
[2017-07-11] MEDS ORDERED: LORATADINE 10 MG TAB PO SCH (09:00)
[2017-07-11] MEDS ORDERED: GABAPENTIN 300 MG CAP PO SCH (09:00)
--- NOTE | 2017-07-11 11:41 | CONS ---
Date/Time of Note Date/Time of Note DATE: 07/11/17 TIME: 11:34 Assessment/Plan Assessment/Plan Additional Assessment/Plan Intermittent heart block Abnormal ECG with left bundle branch block Sepsis likely secondary to UTI Hypertension -Telemetry strips from last night reviewed which demonstrates heart block. Patient did receive atropine. Currently on telemetry in the ICU, patient remains in sinus rhythm. Patient was on Coreg 6.25 mg twice a day. Agree with discontinuing all AV nancy blocking agents. Furthermore patient with electrolyte abnormalities with hypokalemia. Maintain potassium above 4.0 and magnesium above 2.0. We will check echocardiogram. Continue sepsis management. Consultation Date/Type/Reason Admit Date/Time Jul 10, 2017 at 22:15 Type of Consultation: cv Reason for Consultation Arrhythmia Hx of Present Illness This is a 62-year-old female with past medical history of hypertension who has been having symptoms of fevers and chills and fatigue over the past 24 hours. Patient also with back pain. Patient admits to poor p.o. intake the day prior to admission. Yesterday evening, patient was eating while sitting down and became severely dizzy and lightheaded and then lost consciousness. Next thing she remembers is waking up on the floor. Patient was brought to the emergency room for further evaluation care. Undergoing workup for sepsis likely secondary to UTI. On the telemetry floor, patient with severe bradycardia requiring the use of atropine. Secondary to the above, cardiology consultation was requested. Patient states she recently started cardiology workup by an outside bleacher [employer] one to 2 months ago. She thinks she had a recent stress test done about a month ago. She is currently feeling better, denies dizziness or lightheadedness, chest pain or shortness of breath. She denies previous syncope. 12 point review of systems was performed with all pertinent positives and negatives mentioned above and also negative Past Medical History Thyroid dysfunction Medical History: hypertension Family History Significant Family History: no pertinent family hx Social History Alcohol Use: none Smoking Status: Never smoker Drug Use: none Other Social History Lives at home Exam/Review of Systems Vital Signs Vitals Vital Signs Date Time Temp Pulse Resp B/P Pulse Ox O2 Delivery O2 Flow Rate FiO2 07/11/17 11:00 76 24 94/45 100 Room Air 07/11/17 09:00 99.2 07/11/17 03:00 3.0 Intake and Output 9/04/2007/10/17 07/11/17 15:00 23:00 07:00 Intake Total 565.0 ml Output Total 1000 ml Balance -435.0 ml Exam Appears tired, no apparent distress Constitutional: alert, oriented Head: normocephalic Respiratory: other (Coarse breath sounds bilaterally, no wheezing) Cardiovascular: other (S1-S2 heard), regular rate and rhythm Gastrointestinal: bowel sounds, non-tender, soft Extremities: edema (Trace) Results Result Diagram: 07/11/17 0507/11/17 05 Results 24 hrs Laboratory Tests Test 07/10/17 17:40 07/10/17 18:55 07/10/17 19:39 07/10/17 19:40 White Blood Count 21.5 H Red Blood Count 5.18 Hemoglobin 13.3 Hematocrit 38.8 Mean Corpuscular Volume 74.9 L Mean Corpuscular Hemoglobin 25.7 L Mean Corpuscular Hemoglobin Concent 34.3 Red Cell Distribution Width 14.1 Platelet Count 327 Mean Platelet Volume 10.0 Neutrophils % 83.7 H Lymphocytes % 7.7 L Monocytes % 7.9 Eosinophils % 0.0 Basophils % 0.1 Nucleated Red Blood Cells % 0.0 Neutrophils # (Manual) 18.0 H Lymphocytes # 1.7 Monocytes # 1.7 H Eosinophils # 0.0 Basophils # 0.0 Nucleated Red Blood Cells # 0.0 Prothrombin Time 13.7 13.9 Prothrombin Time Ratio 1.1 1.1 INR International Normalized Ratio 1.05 1.07 Activated Partial Thromboplast Time 28.2 29.0 D-Dimer 545.40 H D-Dimer Comment Sodium Level 131 L Potassium Level 2.9 *L Chloride Level 91 L Carbon Dioxide Level 29 Anion Gap 14 Blood Urea Nitrogen 11 Creatinine 0.65 Glucose Level 132 Calcium Level 9.1 Troponin I < 0.012 B-Type Natriuretic Peptide 180 H Urine Color YELLOW Urine Clarity SLIGHTLY CLOUDY A Urine pH 7.0 Urine Specific Gerlaw 1.011 Urine Ketones NEGATIVE Urine Nitrite POSITIVE A Urine Bilirubin NEGATIVE Urine Urobilinogen NEGATIVE Urine Leukocyte Esterase 2+ H Urine Microscopic RBC 0 Urine Microscopic WBC 28 H Urine Bacteria FEW A Urine Hemoglobin NEGATIVE Urine Glucose NEGATIVE Urine Total Protein NEGATIVE Bedside Glucose 115 Test 07/10/17 19:45 07/10/17 22:00 07/11/17 02:10 07/11/17 03:32 Lactic Acid Level 1.5 1.4 1.8 Total Bilirubin 0.4 Direct Bilirubin 0.00 Indirect Bilirubin 0.4 Aspartate Amino Transf (AST/SGOT) 24 Alanine Aminotransferase (ALT/SGPT) 28 Alkaline Phosphatase 102 Total Protein 7.3 Albumin 4.1 Creatine Kinase 43 Creatine Kinase Index 0.8 Creatinine Kinase MB (Mass) 0.34 Troponin I < 0.012 Potassium Level 3.5 Magnesium Level 2.0 Bedside Glucose 177 Test 07/11/17 05:21 07/11/17 08:39 White Blood Count 14.9 #H Red Blood Count 4.34 Hemoglobin 11.1 L Hematocrit 33.4 L Mean Corpuscular Volume 77.0 L Mean Corpuscular Hemoglobin 25.6 L Mean Corpuscular Hemoglobin Concent 33.2 Red Cell Distribution Width 14.7 H Platelet Count 278 Mean Platelet Volume 10.1 Neutrophils % 77.5 H Lymphocytes % 11.7 L Monocytes % 10.4 Eosinophils % 0.0 Basophils % 0.1 Nucleated Red Blood Cells % 0.0 Neutrophils # (Manual) 11.6 H Lymphocytes # 1.8 Monocytes # 1.6 H Eosinophils # 0.0 Basophils # 0.0 Nucleated Red Blood Cells # 0.0 Sodium Level 135 Potassium Level 3.9 Chloride Level 104 # Carbon Dioxide Level 28 Anion Gap 7 L Blood Urea Nitrogen 8 Creatinine 0.70 Glucose Level 145 Hemoglobin A1c 6.2 H Calcium Level 8.0 L Magnesium Level 2.1 Total Bilirubin 0.3 Direct Bilirubin 0.00 Indirect Bilirubin 0.3 Aspartate Amino Transf (AST/SGOT) 16 Alanine Aminotransferase (ALT/SGPT) 31 Alkaline Phosphatase 72 Creatine Kinase 80 Creatine Kinase Index 0.6 Creatinine Kinase MB (Mass) 0.46 Troponin I 0.013 Total Protein 5.7 #L Albumin 3.0 #L Globulin 2.70 Albumin/Globulin Ratio 1.11 Triglycerides Level 82 Cholesterol Level 98 L LDL Cholesterol, Calculated 46 HDL Cholesterol 36 Cholesterol/HDL Ratio 2.7 Thyroid Stimulating Hormone (TSH) < 0.015 L Bedside Glucose 94 Medications Medications Current Medications Sodium Chloride (NS) 1,000 ml @ 80 mls/hr [id number] IV Last administered on t 00:15; Admin Dose 80 MLS/HR; Start 07/10/17 at 22:15 Ondansetron HCl (Zofran Inj) 4 mg Q6H PRN IV NAUSEA AND/OR VOMITING; Start 07/10 at 22:30 Acetaminophen (Tylenol Tab) 650 mg Q6H PRN PO PAIN LEVEL 1-3 OR FEVER Last administered on 07/11/17 05:08; Admin Dose 650 MG; Start 07/10/17 at 22:30 Docusate Sodium (Colace) 100 mg Q12H PRN PO CONSTIPATION; Start 07/10/17 at 22: 30 Bisacodyl (Dulcolax) 5 mg DAILY PRN PO CONSTIPATION; Start 07/10/17 at 22:30 Famotidine (Pepcid) 20 mg Q12 PO Last administered on 07/11/17 08:54; Admin Dose 20 MG; Start 07/10/17 at 22:30 Aspirin (Halfprin) 81 mg DAILY PO Last administered on 07/11/17 08:54; Admin Dose 81 MG; Start 07/11/17 at 09:00 Atorvastatin Calcium (Lipitor) 40 mg QHS PO ; Start 07/11/17 at 21:00 Fluticasone Propionate (Flonase 0.05% Nasal) 1 spray DAILY NASAL ; Start at 09:00 Diagnostic Test (Pha) (Accu-Chek) 1 ea 02 XX ; Start 07/12/17 at 02:00 Miscellaneous Information 1 ea NOTE XX ; Start 07/11/17 at 04:30 Glucose (Glutose) 15 gm Q15M PRN PO DECREASED GLUCOSE; Start 07/11/17 at 04:30 Glucose (Glutose) 22.5 gm Q15M PRN PO DECREASED GLUCOSE; Start 07/11/17 at 04:30 Dextrose (D50w Syringe) 25 ml Q15M PRN IV DECREASED GLUCOSE; Start 07/11/17 at 04:30 Dextrose (D50w Syringe) 50 ml Q15M PRN IV DECREASED GLUCOSE; Start 07/11/17 at 04:30 Glucagon (Glucagen) 1 mg Q15M PRN IM DECREASED GLUCOSE; Start 07/11/17 at 04:30 Glucose 15 gm 15 gm Q15M PRN BUCCAL DECREASED GLUCOSE; Start 07/11/17 at 04:30 Ceftriaxone Sodium (Rocephin) 50 ml @ 100 mls/hr Q24H IVPB ; Start 07/11/17 at 20:00 Procedures Procedures ECG done this morning at 2:33 AM demonstrates sinus tachycardia at 110 bpm, left bundle branch block, QRS 156 ms Telemetry strips from overnight at 2:06 AM with heart block with ventricular rate in the 40s and atrial rate approximately 115 Jadon Hsieh DO Jul 11, 2017 11:41
[2017-07-11 12:05] LABS: T3 UPTAKE 48.7 % (23.5-40.5)
--- NOTE | 2017-07-11 12:20 | RADRPT ---
Echocardiogram Report Patient Name: SAMEER DOAN Gender: Female Date: 1955 Study Date: 11-Jul-2017 Lubricating Specialist: Lobo [facility] Location: 104 Ref. Physician: IDA GEORGE Quality: Adequate Procedures: Transthoracic echocardiogram with complete 2D, M-Mode, and doppler examination. Indications: Syncope. 2D/M Mode Doppler Measurement Value Normal Ranges Measurement Value Normal Ranges LVIDd 2D 4.5 3.5 - 5.6 cm AV Peak Ja 1.9 m/sec LVIDs 2D 3.0 2.1 - 4.1 cm AV Peak PG 15.0 mmHg FS 2D 33.3 % LVOT Peak Ja 1.3 m/sec LVPWd 2D 0.9 0.6 - 1.1 cm LVOT Peak PG 7.0 mmHg IVSd 2D 0.8 0.6 - 1.1 cm MV E Peak Ja 0.7 m/sec IVS/LVPW 2D 0.9 MV A Peak Ja 1.0 m/sec AoR Diam 2D 2.5 2.0 - 3.7 cm MV E/A 0.8 LA/Ao 2D 2 0 - 1 MV Decel Time 208 msec EDV 2D 89.9 cm3 MV E/A 0.8 ESV 2D 26.7 cm3 TR Peak Ja 2.4 m/sec LA Dimen 2D 4.0 2.3 - 4.0 cm TR Peak PG 23.0 mmHg RVSP 26.0 mmHg Findings Left Ventricle: Normal left ventricular systolic function. Normal left ventricular cavity size. Normal left ventricular wall thickness. Ejection fraction is visually estimated at 60 %. Tissue Doppler/Mitral Doppler indices are consistent with impaired relaxation (Stage I diastolic dysfunction). Right Ventricle: Normal right ventricular size. Normal right ventricular systolic function. Left Atrium: The left atrium is normal in size. Right Atrium: The right atrium is normal in size. Mitral Valve: Normal appearance and function of the mitral valve with trace physiologic regurgitation. Aortic Valve: Aortic sclerosis without stenosis. Trace aortic valve regurgitation. Tricuspid Valve: Normal appearance and function of the tricuspid valve with trace physiologic regurgitation. Estimated peak PA systolic pressure 26 mmHg. Pulmonic Valve: Pulmonic valve not well visualized. There is trace pulmonic regurgitation. Pericardium: Normal pericardium with no significant pericardial effusion. Aorta: Normal aortic root. IVC: Normal size and normal respiratory collapse consistent with normal right atrial pressure. Conclusions Normal left ventricular systolic function. Normal left ventricular cavity size. Normal left ventricular wall thickness. Ejection fraction is visually estimated at 60 %. Tissue Doppler/Mitral Doppler indices are consistent with impaired relaxation (Stage I diastolic dysfunction). Normal right ventricular size. Normal right ventricular systolic function. The left atrium is normal in size. The right atrium is normal in size. No significant valvular stenosis or regurgitation seen. Normal pericardium with no significant pericardial effusion. Electronically Signed By: Jadon Hsieh 11-Jul-2017 12:19:48 -0700 Patient Name: SAMEER DOAN Study Date: 11-Jul-2017 [id number]
[2017-07-11] MEDS ORDERED: VANCOMYCIN IV PER PHARMACY XX SCH (12:30)
--- NOTE | 2017-07-11 13:57 | CONS ---
Date/Time of Note Date/Time of Note DATE: 07/11/17 TIME: 13:45 Assessment/Plan Assessment/Plan Problems: (1) Thyrotoxicosis without thyroid storm Status: Acute Comment: Likely due to over administration of levothyroxine. Patient believes she takes 75 mcg daily, however the med reconciliation in the computer says she takes 150 mcg daily. In either case her current dose needs to be held and eventually adjusted downwards. However prior to restarting the medication next week, it will be important to determine what her actual home dosage was and for this I have instructed family to obtain the bottles from the house. As noted above, would hold levothyroxine for now and recheck in 1 week. It is possible that exogenous thyrotoxicosis could be responsible for some of her symptoms but should not cause heart block. Will defer evaluation and treatment of this to cardiology. Qualifiers: Qualified Code: E05.80 - Other thyrotoxicosis without thyrotoxic crisis or storm (2) Type 2 diabetes mellitus without complications Status: Chronic Comment: Excellent glycemic control on metformin alone. A1c at goal. Would continue Metformin provided patient has ongoing normal renal function and does not have a contrast study. Will monitor blood glucose levels on this patient. Consultation Date/Type/Reason Admit Date/Time Jul 10, 2017 at 22:15 Date of Consultation: Jul 11, 2017 Type of Consultation: Endocrinology Reason for Consultation Thyrotoxicosis on thyroid hormone Referring Provider: RIKA WHITE MD Hx of Present Illness 62-year-old female with a history of type 2 diabetes mellitus, hypertension, hyperlipidemia, hypothyroidism, arthritis, allergic rhinitis, gastroesophageal reflux disease in usual state of health until 2-3 days ago when she developed headaches, weakness, feelings of flushing and cold sweats. Patient continued with the symptoms over the next 48 hours until yesterday when she had ear witnessed syncopal episode in her kitchen. Family member found her unconscious with pallor, tongue rolling back, diaphoretic. Patient brought to [facility] emergency room for further evaluation of syncope. Found to have multiple heart arrhythmias since admission including possible heart block. TSH found to be undetectable and free T4 index elevated greater than 4. Endocrinology consulted. Constitutional: chills, diaphoresis, febrile Eyes: no complaints ENT: no complaints Respiratory: no complaints Cardiovascular: lightheadedness Gastrointestinal: no complaints Genitourinary: no complaints Musculoskeletal: no complaints Neurologic: dizziness, headache, syncope Past Medical History Medical History: diabetes, GERD, high cholesterol, hypertension, hypothyroid, other (Allergic rhinitis) Past Surgical History Past Surgical Hx: other (Bilateral total hip arthroplasties) Family History Significant Family History: cancer (Mother, type unknown but was rapidly progressive), diabetes (Siblings), hypertension (Father) Social History Born during a [place], in [facility] for [facility] years, 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, , 3 children Alcohol Use: rarely Smoking Status: Never smoker Drug Use: none Exam/Review of Systems Vital Signs Vitals VS - Last 72 Hours, by Label Date Time Temp Pulse Resp B/P Pulse Ox O2 Delivery O2 Flow Rate FiO2 07/11/17 12:00 83 07/11/17 12:00 100.8 84 14 110/58 100 Room Air 07/11/17 11:00 76 24 94/45 100 Room Air 07/11/17 10:00 70 20 90/50 100 Room Air 07/11/17 09:00 99.2 72 21 97/54 98 Room Air 07/11/17 08:00 66 07/11/17 08:00 62 16 85/55 99 Room Air 07/11/17 07:00 61 19 67/28 99 Room Air 07/11/17 06:30 73 15 90/47 99 Room Air 07/11/17 06:00 99.1 66 20 89/47 96 Room Air 07/11/17 05:00 76 20 91/52 96 Room Air 07/11/17 04:00 94 07/11/17 04:00 90 26 99/59 100 Nasal Cannula 07/11/17 03:16 103 07/11/17 03:00 102.1 104 20 115/67 96 Nasal Cannula 07/11/17 03:00 3.0 07/11/17 02:00 99.6 108 18 106/72 98 Nasal Cannula 07/11/17 01:05 51 07/11/17 00:53 95 07/11/17 00:30 99.8 50 17 125/60 98 07/11/17 00:20 49 07/11/17 00:05 92 07/11/17 00:00 2.0 07/10/17 22:30 87 18 137/62 98 Room Air 07/10/17 20:41 100.8 72 20 109/80 99 Room Air 07/10/17 18:42 74 20 128/77 99 Room Air 07/10/17 17:52 74 20 116/71 99 Room Air 07/10/17 15:34 100.8 91 18 118/55 98 Vital Signs Date Time Temp Pulse Resp B/P Pulse Ox O2 Delivery O2 Flow Rate FiO2 07/11/17 12:00 83 07/11/17 12:00 100.8 14 110/58 100 Room Air 07/11/17 03:00 3.0 Intake and Output 07/10/17 07/10/17 07/11/17 14:59 22:59 06:59 Intake Total 485.0 ml Output Total 1000 ml Balance -515.0 ml Exam Constitutional: alert, oriented, well developed Psych: nl mood/affect, no complaints Eyes: EOMI, PERRL, nl conjunctiva, nl lids, nl sclera ENMT: mucosa pink and moist, nl external ears & nose Neck: non-tender, supple, No bruits, No masses, No thyromegaly Respiratory: clear to auscultation, normal air movement Cardiovascular: nl pulses, regular rate and rhythm, No edema, No murmurs/extra sounds, No rub Gastrointestinal: bowel sounds, nl liver, spleen, non-tender, soft, No mass, No rebound or guarding Musculoskeletal: nl extremities to inspection Extremities: normal pulses, No clubbing, No cyanosis, No edema Neurological: SPECIAL SERVICES COORDINATOR II-XII intact, nl mental status, nl speech, nl strength Additional Comments Bedside Glucose - 72 Hours Test 07/10/17 19:39 07/11/17 03:32 07/11/17 08:39 07/11/17 12:02 Bedside Glucose 115mg/dL (70-220) 177mg/dL (70-220) 94mg/dL (70-220) 113mg/dL (70-220) Results Result Diagram: 07/11/17 0521 07/11/1721 Results 24 hrs Laboratory Tests Test 07/10/17 17:40 07/10/17 18:55 07/10/17 19:39 07/10/17 19:40 White Blood Count 21.5 H Red Blood Count 5.18 Hemoglobin 13.3 Hematocrit 38.8 Mean Corpuscular Volume 74.9 L Mean Corpuscular Hemoglobin 25.7 L Mean Corpuscular Hemoglobin Concent 34.3 Red Cell Distribution Width 14.1 Platelet Count 327 Mean Platelet Volume 10.0 Neutrophils % 83.7 H Lymphocytes % 7.7 L Monocytes % 7.9 Eosinophils % 0.0 Basophils % 0.1 Nucleated Red Blood Cells % 0.0 Neutrophils # (Manual) 18.0 H Lymphocytes # 1.7 Monocytes # 1.7 H Eosinophils # 0.0 Basophils # 0.0 Nucleated Red Blood Cells # 0.0 Prothrombin Time 13.7 13.9 Prothrombin Time Ratio 1.1 1.1 INR International Normalized Ratio 1.05 1.07 Activated Partial Thromboplast Time 28.2 29.0 D-Dimer 545.40 H D-Dimer Comment Sodium Level 131 L Potassium Level 2.9 *L Chloride Level 91 L Carbon Dioxide Level 29 Anion Gap 14 Blood Urea Nitrogen 11 Creatinine 0.65 Glucose Level 132 Calcium Level 9.1 Troponin I < 0.012 B-Type Natriuretic Peptide 180 H Urine Color YELLOW Urine Clarity SLIGHTLY CLOUDY A Urine pH 7.0 Urine Specific Sunflower 1.011 Urine Ketones NEGATIVE Urine Nitrite POSITIVE A Urine Bilirubin NEGATIVE Urine Urobilinogen NEGATIVE Urine Leukocyte Esterase 2+ H Urine Microscopic RBC 0 Urine Microscopic WBC 28 H Urine Bacteria FEW A Urine Hemoglobin NEGATIVE Urine Glucose NEGATIVE Urine Total Protein NEGATIVE Bedside Glucose 115 Test 07/10/17 19:45 07/10/17 22:00 07/11/17 02:10 07/11/17 03:32 Lactic Acid Level 1.5 1.4 1.8 Total Bilirubin 0.4 Direct Bilirubin 0.00 Indirect Bilirubin 0.4 Aspartate Amino Transf (AST/SGOT) 24 Alanine Aminotransferase (ALT/SGPT) 28 Alkaline Phosphatase 102 Total Protein 7.3 Albumin 4.1 Creatine Kinase 43 Creatine Kinase Index 0.8 Creatinine Kinase MB (Mass) 0.34 Troponin I < 0.012 Potassium Level 3.5 Magnesium Level 2.0 Bedside Glucose 177 Test 07/11/17 05:19 07/11/17 05:21 07/11/17 08:39 07/11/17 11:28 Free Thyroxine Index 4.92 H Thyroxine (T4) 10.1 Triiodothyronine (T3) Uptake 48.7 H White Blood Count 14.9 #H Red Blood Count 4.34 Hemoglobin 11.1 L Hematocrit 33.4 L Mean Corpuscular Volume 77.0 L Mean Corpuscular Hemoglobin 25.6 L Mean Corpuscular Hemoglobin Concent 33.2 Red Cell Distribution Width 14.7 H Platelet Count 278 Mean Platelet Volume 10.1 Neutrophils % 77.5 H Lymphocytes % 11.7 L Monocytes % 10.4 Eosinophils % 0.0 Basophils % 0.1 Nucleated Red Blood Cells % 0.0 Neutrophils # (Manual) 11.6 H Lymphocytes # 1.8 Monocytes # 1.6 H Eosinophils # 0.0 Basophils # 0.0 Nucleated Red Blood Cells # 0.0 Sodium Level 135 Potassium Level 3.9 Chloride Level 104 # Carbon Dioxide Level 28 Anion Gap 7 L Blood Urea Nitrogen 8 Creatinine 0.70 Glucose Level 145 Hemoglobin A1c 6.2 H Calcium Level 8.0 L Magnesium Level 2.1 Total Bilirubin 0.3 Direct Bilirubin 0.00 Indirect Bilirubin 0.3 Aspartate Amino Transf (AST/SGOT) 16 Alanine Aminotransferase (ALT/SGPT) 31 Alkaline Phosphatase 72 Creatine Kinase 80 Creatine Kinase Index 0.6 Creatinine Kinase MB (Mass) 0.46 Troponin I 0.013 < 0.012 Total Protein 5.7 #L Albumin 3.0 #L Globulin 2.70 Albumin/Globulin Ratio 1.11 Triglycerides Level 82 Cholesterol Level 98 L LDL Cholesterol, Calculated 46 HDL Cholesterol 36 Cholesterol/HDL Ratio 2.7 Thyroid Stimulating Hormone (TSH) < 0.015 L Bedside Glucose 94 Test 07/11/17 12:02 Bedside Glucose 113 Medications Medications Current Medications Ondansetron HCl (Zofran Inj) 4 mg Q6H PRN IV NAUSEA AND/OR VOMITING; Start 07/10 at 22:30 Acetaminophen (Tylenol Tab) 650 mg Q6H PRN PO PAIN LEVEL 1-3 OR FEVER Last administered on 07/11/17 12:07; Admin Dose 650 MG; Start 07/10/17 at 22:30 Docusate Sodium (Colace) 100 mg Q12H PRN PO CONSTIPATION; Start 07/10/17 at 22: 30 Bisacodyl (Dulcolax) 5 mg DAILY PRN PO CONSTIPATION; Start 07/10/17 at 22:30 Famotidine (Pepcid) 20 mg Q12 PO Last administered on 07/11/17 08:54; Admin Dose 20 MG; Start 07/10/17 at 22:30 Aspirin (Halfprin) 81 mg DAILY PO Last administered on 07/11/17 08:54; Admin Dose 81 MG; Start 07/11/17 at 09:00 Atorvastatin Calcium (Lipitor) 40 mg QHS PO ; Start 07/11/17 at 21:00 Fluticasone Propionate (Flonase 0.05% Nasal) 1 spray DAILY NASAL ; Start at 09:00 Diagnostic Test (Pha) (Accu-Chek) 1 ea 02 XX ; Start 07/12/17 at 02:00 Miscellaneous Information 1 ea NOTE XX ; Start 07/11/17 at 04:30 Glucose (Glutose) 15 gm Q15M PRN PO DECREASED GLUCOSE; Start 07/11/17 at 04:30 Glucose (Glutose) 22.5 gm Q15M PRN PO DECREASED GLUCOSE; Start 07/11/17 at 04:30 Dextrose (D50w Syringe) 25 ml Q15M PRN IV DECREASED GLUCOSE; Start 07/11/17 at 04:30 Dextrose (D50w Syringe) 50 ml Q15M PRN IV DECREASED GLUCOSE; Start 07/11/17 at 04:30 Glucagon (Glucagen) 1 mg Q15M PRN IM DECREASED GLUCOSE; Start 07/11/17 at 04:30 Glucose 15 gm 15 gm Q15M PRN BUCCAL DECREASED GLUCOSE; Start 07/11/17 at 04:30 Piperacillin Sod/ Tazobactam Sod 100 ml @ 25 mls/hr TID@02,10,18 IVPB ; Start 07/11/17 at 18:00 Vancomycin HCl 1.25 gm/Sodium Chloride 250 ml @ 83.333 mls/ hr ONCE IVPB ; Start 07/11/17 at 14:00; Stop 07/11/17 at 16:59 Vancomycin HCl/ Sodium Chloride (Vancocin/NS) 150 ml @ 75 mls/hr Q12H IVPB ; Start 07/12/17 at 02:00 STEFANIE MAZA MD Jul 11, 2017 13:56
[2017-07-11] MEDS ORDERED: VANCOMYCIN 1.25 GM in SOD CHLORIDE 0.9% 250 ML IVPB SCH (14:00)
[2017-07-11] MEDS: PIPER-TAZO 3.375 GM IV (PMX) 100 ML IVPB SCH (18:04)
[2017-07-11] MEDS ORDERED: CEFTRIAXONE 1 GM/50 ML (PMX) 50 ML IVPB SCH (20:00)
[2017-07-11] MEDS: ATORVASTATIN 40 MG TAB PO SCH (21:24)
[2017-07-12] VITALS (36 sets, daily range): BP systolic 79–124; BP diastolic 33–71; PULSE 64–83; RESP 13–25
[2017-07-12] MEDS: VANCOMYCIN 750 MG in SOD CHLORIDE 0.9% 150 ML IVPB SCH ×2 (01:41→14:34)
[2017-07-12] MEDS: PIPER-TAZO 3.375 GM IV (PMX) 100 ML IVPB SCH (01:41)
[2017-07-12] MEDS: ACCU-CHEK XX SCH (01:50)
[2017-07-12] MEDS ORDERED: ACCU-CHEK XX SCH (02:00)
[2017-07-12 06:33] LABS: BASOPHILS % 0.2 % (0.0-2.0); EOSINOPHILS # 0.1 10^3/ul (0.0-0.5); EOSINOPHILS % 0.9 % (0.0-7.0); HEMATOCRIT 32.5 % (37.0-47.0); HEMOGLOBIN 10.7 g/dl (12.0-16.0); LYMPHOCYTES # 2.3 10^3/ul (0.8-2.9); MEAN CORPUSCULAR HEMOGLOBIN 25.1 pg (29.0-33.0); MEAN CORPUSCULAR HGB CONC 32.9 g/dl (32.0-37.0); MEAN CORPUSCULAR VOLUME 76.3 fl (82.0-101.0); MEAN PLATELET VOLUME 10.4 fl (7.4-10.4); MONOCYTE # 1.4 10^3/ul (0.3-0.9); MONOCYTES % 9.8 % (0.0-11.0); NEUTROPHILS % 71.7 % (39.0-77.0); PLATELET COUNT 256 10^3/UL (140-415); RED BLOOD COUNT 4.26 10^6/ul (4.20-5.40); RED CELL DISTRIBUTION WIDTH 15.4 % (11.5-14.5); WHITE BLOOD COUNT 13.7 10^3/ul (4.8-10.8)
[2017-07-12 07:06] LABS: ALBUMIN 3.2 g/dl (3.3-4.9); ALBUMIN/GLOBULIN RATIO 1.03; BILIRUBIN,INDIRECT 0.4 mg/dl (0-1.1); BILIRUBIN,TOTAL 0.4 mg/dl (0.2-1.3); CALCIUM 8.1 mg/dl (8.4-10.2); CREATININE 0.53 mg/dl (0.44-1.00); POTASSIUM 3.4 mmol/L (3.5-5.1); TOTAL PROTEIN 6.3 g/dl (6.1-8.1)
[2017-07-12] MEDS: INSULIN ASPART [NOVOLOG] 3 ML PEN SC SCH ×4 (07:35→22:36)
[2017-07-12] MEDS: ACETAMINOPHEN 325 MG TAB PO PRN ×2 (08:00→13:24)
[2017-07-12] MEDS: ASPIRIN (EC) 81 MG TAB PO SCH (08:01)
[2017-07-12] MEDS: FAMOTIDINE 20 MG TAB PO SCH ×2 (08:01→22:37)
[2017-07-12] MEDS: FLUTICASONE 0.05% 16 GM NAS SPRAY NASAL SCH (08:01)
[2017-07-12] MEDS: LEVOFLOXACIN 750MG/D5W (PMX) 150 ML IVPB SCH (10:22)
[2017-07-12 10:23] LABS: IRON 13 ug/dl (35-150)
[2017-07-12 10:32] LABS: TOTAL IRON BINDING CAPACITY 274 ug/dl (241-421)
--- NOTE | 2017-07-12 11:19 | CONS ---
Date/Time of Note Date/Time of Note DATE: 07/12/17 TIME: 11:17 Assessment/Plan Assessment/Plan Additional Assessment/Plan Intermittent heart block Preserved ejection fraction Abnormal ECG with left bundle branch block Sepsis likely secondary to UTI Hypertension -Telemetry reviewed, patient remains in sinus rhythm. Continue to hold any AV nancy blocking agents. Continue sepsis management. Continue telemetry monitoring. Maintain potassium above 4.0 and magnesium above 2.0. Consultation Date/Type/Reason Admit Date/Time Jul 10, 2017 at 22:15 Initial Consult Date 07/11/17 Type of Consultation: cv Referring Provider: RIKA WHITE MD 24 HR Interval Summary Free Text/Dictation Feeling much better today. Denies dizziness or lightheadedness, chest pains or palpitations. Exam/Review of Systems Vital Signs Vitals Vital Signs Date Time Temp Pulse Resp B/P Pulse Ox O2 Delivery O2 Flow Rate FiO2 07/12/17 11:00 67 18 84/70 98 Room Air 07/12/17 08:00 99.1 07/11/17 03:00 3.0 Intake and Output 07/11/17 07/11/17 07/12/17 15:00 23:00 07:00 Intake Total 680 ml 570 ml Output Total 1400 ml 900 ml 600 ml Balance -720 ml -330 ml -600 ml Exam No apparent distress, family at bedside Constitutional: alert, oriented Head: normocephalic Respiratory: other (Coarse breath sounds bilaterally, no wheezing) Cardiovascular: other (S1-S2 heard), regular rate and rhythm Gastrointestinal: bowel sounds, non-tender, soft Extremities: edema (Trace) Results Result Diagram: 07/12/17 0555 07/12/17 0555 Results 24 hrs Laboratory Tests Test 07/11/17 11:28 07/11/17 12:02 07/11/17 17:25 07/11/17 17:26 Troponin I < 0.012 < 0.012 Bedside Glucose 113 115 Test 07/11/17 21:26 07/12/17 01:43 07/12/17 05:55 07/12/17 07:53 Bedside Glucose 148 123 116 White Blood Count 13.7 H Red Blood Count 4.26 Hemoglobin 10.7 L Hematocrit 32.5 L Mean Corpuscular Volume 76.3 L Mean Corpuscular Hemoglobin 25.1 L Mean Corpuscular Hemoglobin Concent 32.9 Red Cell Distribution Width 15.4 H Platelet Count 256 Mean Platelet Volume 10.4 Neutrophils % 71.7 Lymphocytes % 17.0 Monocytes % 9.8 Eosinophils % 0.9 Basophils % 0.2 Nucleated Red Blood Cells % 0.0 Neutrophils # (Manual) 9.9 H Lymphocytes # 2.3 Monocytes # 1.4 H Eosinophils # 0.1 Basophils # 0.0 Nucleated Red Blood Cells # 0.0 Sodium Level 138 Potassium Level 3.4 L Chloride Level 107 Carbon Dioxide Level 24 Anion Gap 10 Blood Urea Nitrogen 7 Creatinine 0.53 Glucose Level 123 Calcium Level 8.1 L Iron Level 13 L Total Iron Binding Capacity 274 Percent Iron Saturation 5 L Total Bilirubin 0.4 Direct Bilirubin 0.00 Indirect Bilirubin 0.4 Aspartate Amino Transf (AST/SGOT) 17 Alanine Aminotransferase (ALT/SGPT) 26 Alkaline Phosphatase 73 Total Protein 6.3 Albumin 3.2 L Globulin 3.10 Albumin/Globulin Ratio 1.03 Medications Medications Current Medications Ondansetron HCl (Zofran Inj) 4 mg Q6H PRN IV NAUSEA AND/OR VOMITING; Start 07/10 at 22:30 Acetaminophen (Tylenol Tab) 650 mg Q6H PRN PO PAIN LEVEL 1-3 OR FEVER Last administered on 07/12/17 08:00; Admin Dose 650 MG; Start 07/10/17 at 22:30 Docusate Sodium (Colace) 100 mg Q12H PRN PO CONSTIPATION; Start 07/10/17 at 22: 30 Bisacodyl (Dulcolax) 5 mg DAILY PRN PO CONSTIPATION; Start 07/10/17 at 22:30 Famotidine (Pepcid) 20 mg Q12 PO Last administered on 07/12/17 08:01; Admin Dose 20 MG; Start 07/10/17 at 22:30 Aspirin (Halfprin) 81 mg DAILY PO Last administered on 07/12/17 08:01; Admin Dose 81 MG; Start 07/11/17 at 09:00 Atorvastatin Calcium (Lipitor) 40 mg QHS PO Last administered on 07/11/17 21:24 ; Admin Dose 40 MG; Start 07/11/17 at 21:00 Fluticasone Propionate (Flonase 0.05% Nasal) 1 spray DAILY NASAL ; Start at 09:00 Diagnostic Test (Pha) (Accu-Chek) 1 ea 02 XX ; Start 07/12/17 at 02:00 Miscellaneous Information 1 ea NOTE XX ; Start 07/11/17 at 04:30 Glucose (Glutose) 15 gm Q15M PRN PO DECREASED GLUCOSE; Start 07/11/17 at 04:30 Glucose (Glutose) 22.5 gm Q15M PRN PO DECREASED GLUCOSE; Start 07/11/17 at 04:30 Dextrose (D50w Syringe) 25 ml Q15M PRN IV DECREASED GLUCOSE; Start 07/11/17 at 04:30 Dextrose (D50w Syringe) 50 ml Q15M PRN IV DECREASED GLUCOSE; Start 07/11/17 at 04:30 Glucagon (Glucagen) 1 mg Q15M PRN IM DECREASED GLUCOSE; Start 07/11/17 at 04:30 Glucose 15 gm 15 gm Q15M PRN BUCCAL DECREASED GLUCOSE; Start 07/11/17 at 04:30 Vancomycin HCl 750 mg/Sodium Chloride 150 ml @ 75 mls/hr Q12H IVPB Last administered on 07/12/17 01:41; Admin Dose 75 MLS/HR; Start 07/12/17 at 02:00 Levofloxacin/ Dextrose (Levaquin 750 Mg/ D5W 150 ml (Pmx)) 150 ml @ 100 mls/hr Q24H IVPB Last administered on 07/12/17 10:22; Admin Dose 100 MLS/HR; Start 07/12/17 at 09:00 Jadon Hsieh DO Jul 12, 2017 11:19
[2017-07-12] MEDS ORDERED: POTASSIUM CHLORIDE (SR) 20 MEQ TAB PO STA (11:20)
--- NOTE | 2017-07-12 15:47 | PN ---
Date/Time of Note Date/Time of Note DATE: 07/12/17 TIME: 15:44 Assessment/Plan VTE Prophylaxis VTE Prophylaxis Intervention: LMWH Lines/Catheters IV Catheter Type (from Nrs): Saline Lock Urinary Cath still in place: No Assessment/Plan Chief Complaint/Hosp Course 62 yo female wtih h/o hypertension who presented with syncope. Found to have sepsis 2/2 UTI, intermittent complete heart block, hypokalemia, and iatrogenic hyperthyroidism Complete heart block: - Continue telemetry monitoring and keep electrolytes normal - Consideration of PPM per cardiology once sepsis resolves Sepsis 2/2 UTI: - UC growing sensitive proteus - Start levaquin, can discontinue zosyn/vanco Hypokalemia: - Replete to 4.0 given arrythmia Hyperthyroid state: - Iatrogenic as she had been on LT4 supplementation as outpatient - Hold synthroid and monitor TFTs in coming month as outpatient Transfer to telemetry floor Problems: Subjective 24 Hr Interval Summary Free Text/Dictation Patient feeling well No complaints In SR on telemetry, no more heart block Fever again last night to 102 Exam/Review of Systems Vital Signs Vitals Vital Signs Date Time Temp Pulse Resp B/P Pulse Ox O2 Delivery O2 Flow Rate FiO2 07/12/17 14:00 74 21 107/70 98 Room Air 07/12/17 12:00 98.2 07/11/17 03:00 3.0 Intake and Output 07/11/17 07/11/17 07/12/17 15:00 23:00 07:00 Intake Total 680 ml 570 ml Output Total 1400 ml 900 ml 600 ml Balance -720 ml -330 ml -600 ml Exam Constitutional: alert, oriented, well developed Psych: nl mood/affect, no complaints Head: atraumatic, normocephalic Eyes: EOMI, PERRL, nl conjunctiva, nl lids, nl sclera ENMT: nl external ears & nose, nl lips & teeth, nl nasal mucosa & septum Neck: non-tender, supple Respiratory: clear to auscultation, normal air movement Cardiovascular: nl pulses, regular rate and rhythm Gastrointestinal: nl liver, spleen, non-tender, soft Musculoskeletal: nl extremities to inspection, nl gait and stance Extremities: normal pulses Neurological: 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 MEDICAL OFFICER II-XII intact, nl mental status, nl speech, nl strength Skin: nl turgor, No rash or lesions Lymph: nl lymph nodes Results Result Diagram: 07/12/17 0555 07/12/17 0555 Results 24 hrs Laboratory Tests Test 07/11/17 17:25 07/11/17 17:26 07/11/17 21:26 07/12/17 01:43 Bedside Glucose 115 148 123 Troponin I < 0.012 Test 07/12/17 05:55 07/12/17 07:53 07/12/17 11:44 White Blood Count 13.7 H Red Blood Count 4.26 Hemoglobin 10.7 L Hematocrit 32.5 L Mean Corpuscular Volume 76.3 L Mean Corpuscular Hemoglobin 25.1 L Mean Corpuscular Hemoglobin Concent 32.9 Red Cell Distribution Width 15.4 H Platelet Count 256 Mean Platelet Volume 10.4 Neutrophils % 71.7 Lymphocytes % 17.0 Monocytes % 9.8 Eosinophils % 0.9 Basophils % 0.2 Nucleated Red Blood Cells % 0.0 Neutrophils # (Manual) 9.9 H Lymphocytes # 2.3 Monocytes # 1.4 H Eosinophils # 0.1 Basophils # 0.0 Nucleated Red Blood Cells # 0.0 Sodium Level 138 Potassium Level 3.4 L Chloride Level 107 Carbon Dioxide Level 24 Anion Gap 10 Blood Urea Nitrogen 7 Creatinine 0.53 Glucose Level 123 Calcium Level 8.1 L Iron Level 13 L Total Iron Binding Capacity 274 Percent Iron Saturation 5 L Ferritin 54.1 Total Bilirubin 0.4 Direct Bilirubin 0.00 Indirect Bilirubin 0.4 Aspartate Amino Transf (AST/SGOT) 17 Alanine Aminotransferase (ALT/SGPT) 26 Alkaline Phosphatase 73 Total Protein 6.3 Albumin 3.2 L Globulin 3.10 Albumin/Globulin Ratio 1.03 Bedside Glucose 116 145 Medications Medications Current Medications Ondansetron HCl (Zofran Inj) 4 mg Q6H PRN IV NAUSEA AND/OR VOMITING; Start 07/10 at 22:30 Acetaminophen (Tylenol Tab) 650 mg Q6H PRN PO PAIN LEVEL 1-3 OR FEVER Last administered on 07/12/17t 13:24; Admin Dose 650 MG; Start 07/10/17 at 22:30 Docusate Sodium (Colace) 100 mg Q12H PRN PO CONSTIPATION; Start 07/10/17 at 22: 30 Bisacodyl (Dulcolax) 5 mg DAILY PRN PO CONSTIPATION; Start 07/10/17 at 22:30 Famotidine (Pepcid) 20 mg Q12 PO Last administered on 07/12/17 08:01; Admin Dose 20 MG; Start 07/10/17 at 22:30 Aspirin (Halfprin) 81 mg DAILY PO Last administered on 07/12/17 08:01; Admin Dose 81 MG; Start 07/11/17 at 09:00 Atorvastatin Calcium (Lipitor) 40 mg QHS PO Last administered on 07/11/17 21:24 ; Admin Dose 40 MG; Start 07/11/17 at 21:00 Fluticasone Propionate (Flonase 0.05% Nasal) 1 spray DAILY NASAL ; Start at 09:00 Diagnostic Test (Pha) (Accu-Chek) 1 ea 02 XX ; Start 07/12/17 at 02:00 Miscellaneous Information 1 ea NOTE XX ; Start 07/11/17 at 04:30 Glucose (Glutose) 15 gm Q15M PRN PO DECREASED GLUCOSE; Start 07/11/17 at 04:30 Glucose (Glutose) 22.5 gm Q15M PRN PO DECREASED GLUCOSE; Start 07/11/17 at 04:30 Dextrose (D50w Syringe) 25 ml Q15M PRN IV DECREASED GLUCOSE; Start 07/11/17 at 04:30 Dextrose (D50w Syringe) 50 ml Q15M PRN IV DECREASED GLUCOSE; Start 07/11/17 at 04:30 Glucagon (Glucagen) 1 mg Q15M PRN IM DECREASED GLUCOSE; Start 07/11/17 at 04:30 Glucose 15 gm 15 gm Q15M PRN BUCCAL DECREASED GLUCOSE; Start 07/11/17 at 04:30 Levofloxacin/ Dextrose (Levaquin 750 Mg/ D5W 150 ml (Pmx)) 150 ml @ 100 mls/hr Q24H IVPB Last administered on 07/12/17 10:22; Admin Dose 100 MLS/HR; Start 07/12/17 at 09:00 Miscellaneous Information (*Rx Drug Level Order Reminder*) 1 ONCE ONCE XX ; Start 07/13/17 at 01:00; Stop 07/13/17 at 01:01 RIKA WHITE MD Jul 12, 2017 15:47
[2017-07-12] MEDS: ATORVASTATIN 40 MG TAB PO SCH (22:37)
[2017-07-13] VITALS (13 sets, daily range): BP systolic 94–125; BP diastolic 46–59; PULSE 61–146; RESP 16–20
[2017-07-13] MEDS: ACCU-CHEK XX SCH (02:00)
[2017-07-13] MEDS: INSULIN ASPART [NOVOLOG] 3 ML PEN SC SCH ×4 (07:42→20:35)
[2017-07-13] MEDS: LEVOFLOXACIN 750MG/D5W (PMX) 150 ML IVPB SCH (08:59)
[2017-07-13] MEDS: FAMOTIDINE 20 MG TAB PO SCH ×2 (08:59→20:34)
[2017-07-13] MEDS: ASPIRIN (EC) 81 MG TAB PO SCH (08:59)
[2017-07-13] MEDS: FLUTICASONE 0.05% 16 GM NAS SPRAY NASAL SCH (08:59)
[2017-07-13 09:40] LABS: BASOPHILS % 0.2 % (0.0-2.0); EOSINOPHILS # 0.2 10^3/ul (0.0-0.5); EOSINOPHILS % 2.4 % (0.0-7.0); HEMATOCRIT 32.9 % (37.0-47.0); HEMOGLOBIN 10.7 g/dl (12.0-16.0); LYMPHOCYTES # 1.9 10^3/ul (0.8-2.9); LYMPHOCYTES % 22.9 % (15.0-51.0); MEAN CORPUSCULAR HEMOGLOBIN 25.5 pg (29.0-33.0); MEAN CORPUSCULAR HGB CONC 32.5 g/dl (32.0-37.0); MEAN CORPUSCULAR VOLUME 78.5 fl (82.0-101.0); MEAN PLATELET VOLUME 10.5 fl (7.4-10.4); MONOCYTE # 0.7 10^3/ul (0.3-0.9); MONOCYTES % 8.5 % (0.0-11.0); NEUTROPHILS % 65.8 % (39.0-77.0); PLATELET COUNT 263 10^3/UL (140-415); RED BLOOD COUNT 4.19 10^6/ul (4.20-5.40); RED CELL DISTRIBUTION WIDTH 15.2 % (11.5-14.5); WHITE BLOOD COUNT 8.1 10^3/ul (4.8-10.8)
[2017-07-13 09:54] LABS: ALBUMIN 3.2 g/dl (3.3-4.9); ALBUMIN/GLOBULIN RATIO 1.06; BILIRUBIN,INDIRECT 0.4 mg/dl (0-1.1); BILIRUBIN,TOTAL 0.4 mg/dl (0.2-1.3); CALCIUM 8.8 mg/dl (8.4-10.2); CREATININE 0.58 mg/dl (0.44-1.00); POTASSIUM 3.9 mmol/L (3.5-5.1); TOTAL PROTEIN 6.2 g/dl (6.1-8.1)
--- NOTE | 2017-07-13 10:11 | PN ---
Date/Time of Note Date/Time of Note DATE: 07/13/17 TIME: 10:09 Assessment/Plan VTE Prophylaxis VTE Prophylaxis Intervention: SCD's Lines/Catheters IV [facility]ter [facility]from [facility] Saline Lock Urinary Cath still in place: No Assessment/Plan Assessment/Plan Intermittent heart block Preserved ejection fraction Abnormal ECG with left bundle branch block Sepsis likely secondary to UTI Hypertension -Telemetry reviewed, patient remains in sinus rhythm. Continue to hold any AV nancy blocking agents. Continue sepsis management. Continue telemetry monitoring. Maintain potassium above 4.0 and magnesium above 2.0. -no recurrent heart block or nsvt -if recurrent heat block, possible ppm but CHB may have been due to sepsi Subjective 24 Hr Interval Summary Free Text/Dictation the aptient with no cahnge Exam/Review of Systems Vital Signs Vitals Vital Signs Date Time Temp Pulse Resp B/P Pulse Ox O2 Delivery O2 Flow Rate FiO2 07/13/17 08:00 61 07/13/17 07:23 98.2 20 105/59 97 07/12/17 14:00 Room Air 07/11/17 03:00 3.0 Intake and Output 07/12/17 07/12/17 07/13/17 15:00 23:00 07:00 Intake Total 1110 ml 200 ml Output Total 1000 ml Balance 110 ml 200 ml Results Result Diagram: 07/13/17 0907 07/13/17 0907 Results 24 hrs Laboratory Tests Test 07/12/17 11:44 07/12/17 17:17 07/12/17 22:35 07/13/17 07:41 Bedside Glucose 145 110 130 117 Test 07/13/17 09:07 White Blood Count 8.1 # Red Blood Count 4.19 L Hemoglobin 10.7 L Hematocrit 32.9 L Mean Corpuscular Volume 78.5 L Mean Corpuscular Hemoglobin 25.5 L Mean Corpuscular Hemoglobin Concent 32.5 Red Cell Distribution Width 15.2 H Platelet Count 263 Mean Platelet Volume 10.5 H Neutrophils % 65.8 Lymphocytes % 22.9 Monocytes % 8.5 Eosinophils % 2.4 Basophils % 0.2 Nucleated Red Blood Cells % 0.0 Neutrophils # (Manual) 5.3 Lymphocytes # 1.9 Monocytes # 0.7 Eosinophils # 0.2 Basophils # 0.0 Nucleated Red Blood Cells # 0.0 Sodium Level 137 Potassium Level 3.9 Chloride Level 106 Carbon Dioxide Level 25 Anion Gap 10 Blood Urea Nitrogen 7 Creatinine 0.58 Glucose Level 159 Calcium Level 8.8 Magnesium Level 2.1 Total Bilirubin 0.4 Direct Bilirubin 0.00 Indirect Bilirubin 0.4 Aspartate Amino Transf (AST/SGOT) 14 L Alanine Aminotransferase (ALT/SGPT) 23 Alkaline Phosphatase 72 Total Protein 6.2 Albumin 3.2 L Globulin 3.00 Albumin/Globulin Ratio 1.06 Medications Medications Current Medications Ondansetron HCl (Zofran Inj) 4 mg Q6H PRN IV NAUSEA AND/OR VOMITING; Start 07/10 at 22:30 Acetaminophen (Tylenol Tab) 650 mg Q6H PRN PO PAIN LEVEL 1-3 OR FEVER Last administered on 07/12/17 13:24; Admin Dose 650 MG; Start 07/10/17 at 22:30 Docusate Sodium (Colace) 100 mg Q12H PRN PO CONSTIPATION; Start 07/10/17 at 22: 30 Bisacodyl (Dulcolax) 5 mg DAILY PRN PO CONSTIPATION; Start 07/10/17 at 22:30 Famotidine (Pepcid) 20 mg Q12 PO Last administered on 07/13/17 08:59; Admin Dose 20 MG; Start 07/10/17 at 22:30 Aspirin (Halfprin) 81 mg DAILY PO Last administered on 07/13/17 08:59; Admin Dose 81 MG; Start 07/11/17 at 09:00 Atorvastatin Calcium (Lipitor) 40 mg QHS PO Last administered on 07/12/17 22:37 ; Admin Dose 40 MG; Start 07/11/17 at 21:00 Fluticasone Propionate (Flonase 0.05% Nasal) 1 spray DAILY NASAL ; Start at 09:00 Diagnostic Test (Pha) (Accu-Chek) 1 ea 02 XX ; Start 07/12/17 at 02:00 Miscellaneous Information 1 ea NOTE XX ; Start 07/11/17 at 04:30 Glucose (Glutose) 15 gm Q15M PRN PO DECREASED GLUCOSE; Start 07/11/17 at 04:30 Glucose (Glutose) 22.5 gm Q15M PRN PO DECREASED GLUCOSE; Start 07/11/17 at 04:30 Dextrose (D50w Syringe) 25 ml Q15M PRN IV DECREASED GLUCOSE; Start 07/11/17 at 04:30 Dextrose (D50w Syringe) 50 ml Q15M PRN IV DECREASED GLUCOSE; Start 07/11/17 at 04:30 Glucagon (Glucagen) 1 mg Q15M PRN IM DECREASED GLUCOSE; Start 07/11/17 at 04:30 Glucose 15 gm 15 gm Q15M PRN BUCCAL DECREASED GLUCOSE; Start 07/11/17 at 04:30 Levofloxacin/ Dextrose 150 ml @ 100 mls/hr Q24H IVPB Last administered on t 08:59; Admin Dose 100 MLS/HR; Start 07/12/17 at 09:00 Ferric Sodium Gluconate Complex/ Sodium Chloride (Ferrlecit/NS) 110 ml @ 110 mls/hr Q24H IVPB ; Start 07/13/17 at 09:00; Stop 07/17/17 at 09:59 CHRISTIANA TENA MD Jul 13, 2017 10:11
[2017-07-13] MEDS: SOD FERRIC GLUC COMPLX 125 MG in SOD CHLORIDE 0.9% 100 ML IVPB SCH (10:55)
--- NOTE | 2017-07-13 17:31 | PN ---
Date/Time of Note Date/Time of Note DATE: 07/13/17 TIME: 17:28 Assessment/Plan VTE Prophylaxis VTE Prophylaxis Intervention: LMWH Lines/Catheters IV Catheter Type (from Nrs): Saline Lock Urinary Cath still in place: No Assessment/Plan Chief Complaint/Hosp Course 62 yo female wt h/o hypertension who presented with syncope. Found to have sepsis 2/2 UTI, intermittent complete heart block, hypokalemia, and iatrogenic hyperthyroidism Complete heart block: - Continue telemetry monitoring and keep electrolytes normal - Consideration of PPM per cardiology once sepsis resolves, unclear if will be needed. Per cardiologyh Sepsis 2/2 UTI: - UC growing sensitive proteus - Continue levaquin Hypokalemia: - Replete to 4.0 given arrythmia Hyperthyroid state: - Iatrogenic as she had been on LT4 supplementation as outpatient - Hold synthroid and monitor TFTs in coming month as outpatient Iron deficiency anemia: - Iron supplemetnation Transfer to telemetry floor Problems: Subjective 24 Hr Interval Summary Free Text/Dictation Doign well, sepsis resolving nicely Complains of intermittent palpitations, has ectopy on telemetry Exam/Review of Systems Vital Signs Vitals Vital Signs Date Time Temp Pulse Resp B/P Pulse Ox O2 Delivery O2 Flow Rate FiO2 07/13/17 16:00 71 07/13/17 15:08 98.0 20 115/58 95 07/12/17 14:00 Room Air 07/11/17 03:00 3.0 Intake and Output 07/12/17 07/12/17 07/13/17 14:59 22:59 06:59 Intake Total 1110 ml 200 ml Output Total 1000 ml Balance 110 ml 200 ml Exam Constitutional: alert, oriented, well developed Psych: nl mood/affect, no complaints Head: atraumatic, normocephalic Eyes: EOMI, PERRL, nl conjunctiva, nl lids, nl sclera ENMT: nl external ears & nose, nl lips & teeth, nl nasal mucosa & septum Neck: non-tender, supple Respiratory: clear to auscultation, normal air movement Cardiovascular: nl pulses, regular rate and rhythm Gastrointestinal: nl liver, spleen, non-tender, soft Musculoskeletal: nl extremities to inspection, nl gait and stance Extremities: normal pulses Neurological: SAND BUFFER II-XII intact, nl mental status, nl speech, nl strength Skin: nl turgor, No rash or lesions Lymph: nl lymph nodes Results Result Diagram: 07/13/17 0907 07/13/17 0907 Results 24 hrs Laboratory Tests Test 07/12/17 22:35 07/13/17 07:41 07/13/17 09:07 07/13/17 11:44 Bedside Glucose 130 117 115 White Blood Count 8.1 # Red Blood Count 4.19 L Hemoglobin 10.7 L Hematocrit 32.9 L Mean Corpuscular Volume 78.5 L Mean Corpuscular Hemoglobin 25.5 L Mean Corpuscular Hemoglobin Concent 32.5 Red Cell Distribution Width 15.2 H Platelet Count 263 Mean Platelet Volume 10.5 H Neutrophils % 65.8 Lymphocytes % 22.9 Monocytes % 8.5 Eosinophils % 2.4 Basophils % 0.2 Nucleated Red Blood Cells % 0.0 Neutrophils # (Manual) 5.3 Lymphocytes # 1.9 Monocytes # 0.7 Eosinophils # 0.2 Basophils # 0.0 Nucleated Red Blood Cells # 0.0 Sodium Level 137 Potassium Level 3.9 Chloride Level 106 Carbon Dioxide Level 25 Anion Gap 10 Blood Urea Nitrogen 7 Creatinine 0.58 Glucose Level 159 Calcium Level 8.8 Magnesium Level 2.1 Total Bilirubin 0.4 Direct Bilirubin 0.00 Indirect Bilirubin 0.4 Aspartate Amino Transf (AST/SGOT) 14 L Alanine Aminotransferase (ALT/SGPT) 23 Alkaline Phosphatase 72 Total Protein 6.2 Albumin 3.2 L Globulin 3.00 Albumin/Globulin Ratio 1.06 Medications Medications Current Medications Ondansetron HCl (Zofran Inj) 4 mg Q6H PRN IV NAUSEA AND/OR VOMITING; Start 07/10 at 22:30 Acetaminophen (Tylenol Tab) 650 mg Q6H PRN PO PAIN LEVEL 1-3 OR FEVER Last administered on 07/12/17 13:24; Admin Dose 650 MG; Start 07/10/17 at 22:30 Docusate Sodium (Colace) 100 mg Q12H PRN PO CONSTIPATION; Start 07/10/17 at 22: 30 Bisacodyl (Dulcolax) 5 mg DAILY PRN PO CONSTIPATION; Start 07/10/17 at 22:30 Famotidine (Pepcid) 20 mg Q12 PO Last administered on 07/13/17 08:59; Admin Dose 20 MG; Start 07/10/17 at 22:30 Aspirin (Halfprin) 81 mg DAILY PO Last administered on 07/13/17 08:59; Admin Dose 81 MG; Start 07/11/17 at 09:00 Atorvastatin Calcium (Lipitor) 40 mg QHS PO Last administered on 07/12/17 22:37 ; Admin Dose 40 MG; Start 07/11/17 at 21:00 Fluticasone Propionate (Flonase 0.05% Nasal) 1 spray DAILY NASAL ; Start at 09:00 Diagnostic Test (Pha) (Accu-Chek) 1 ea 02 XX ; Start 07/12/17 at 02:00 Miscellaneous Information 1 ea NOTE XX ; Start 07/11/17 at 04:30 Glucose (Glutose) 15 gm Q15M PRN PO DECREASED GLUCOSE; Start 07/11/17 at 04:30 Glucose (Glutose) 22.5 gm Q15M PRN PO DECREASED GLUCOSE; Start 07/11/17 at 04:30 Dextrose (D50w Syringe) 25 ml Q15M PRN IV DECREASED GLUCOSE; Start 07/11/17 at 04:30 Dextrose (D50w Syringe) 50 ml Q15M PRN IV DECREASED GLUCOSE; Start 07/11/17 at 04:30 Glucagon (Glucagen) 1 mg Q15M PRN IM DECREASED GLUCOSE; Start 07/11/17 at 04:30 Glucose 15 gm 15 gm Q15M PRN BUCCAL DECREASED GLUCOSE; Start 07/11/17 at 04:30 Levofloxacin/ Dextrose 150 ml @ 100 mls/hr Q24H IVPB Last administered on 08:59; Admin Dose 100 MLS/HR; Start 07/12/17 at 09:00 Ferric Sodium Gluconate Complex/ Sodium Chloride (Ferrlecit/NS) 110 ml @ 110 mls/hr Q24H IVPB Last administered on 07/13/17 10:55; Admin Dose 110 MLS/HR; Start 07/13/17 at 09:00; Stop 07/17/17 at 09:59 RIKA WHITE MD Jul 13, 2017 17:31
[2017-07-13] MEDS: ATORVASTATIN 40 MG TAB PO SCH (20:34)
--- NOTE | 2017-07-13 23:57 | CONS ---
Date/Time of Note Date/Time of Note DATE: 07/13/17 TIME: 13:45 Late entry Assessment/Plan Assessment/Plan Problems: (1) Thyrotoxicosis without thyroid storm Status: Acute Comment: thyrotoxicosis due to thyroid hormone replacement excess. Thyroxine stopped. Will resume at lesser dose in approximately 1 week. Qualifiers: Thyrotoxicosis type: other Qualified Code: E05.80 - Other thyrotoxicosis without thyrotoxic crisis or storm (2) Type 2 diabetes mellitus without complications Status: Chronic Comment: good glycemic control Additional Assessment/Plan Re check TSH 1 week. Adjust dose accordingly Consultation Date/Type/Reason Admit Date/Time Jul 10, 2017 at 22:15 Initial Consult Date 07/11/17 Type of Consultation: endocrine Referring Provider: RIKA WHITE MD 24 HR Interval Summary Free Text/Dictation Patient without endocrine complaint Exam/Review of Systems Vital Signs Vitals Vital Signs Date Time Temp Pulse Resp B/P Pulse Ox O2 Delivery O2 Flow Rate FiO2 07/13/17 22:47 146 07/13/17 20:17 98.9 18 110/55 99 07/12/17 14:00 Room Air 07/11/17 03:00 3.0 Intake and Output 07/12/17 07/12/17 07/13/17 15:00 23:00 07:00 Intake Total 1110 ml 200 ml Output Total 1000 ml Balance 110 ml 200 ml Exam family at bedside Constitutional: alert, oriented, well developed Eyes: EOMI, PERRL ENMT: mucosa pink and moist Neck: supple, thyromegaly Respiratory: clear to auscultation Cardiovascular: regular rate and rhythm Gastrointestinal: soft Musculoskeletal: nl extremities to inspection Extremities: normal pulses Results Labs reviewed Result Diagram: 07/13/17 0907 07/13/17 0907 Results 24 hrs Laboratory Tests Test 07/13/17 07:41 07/13/17 09:07 07/13/17 11:44 07/13/17 20:31 Bedside Glucose 117 115 139 White Blood Count 8.1 # Red Blood Count 4.19 L Hemoglobin 10.7 L Hematocrit 32.9 L Mean Corpuscular Volume 78.5 L Mean Corpuscular Hemoglobin 25.5 L Mean Corpuscular Hemoglobin Concent 32.5 Red Cell Distribution Width 15.2 H Platelet Count 263 Mean Platelet Volume 10.5 H Neutrophils % 65.8 Lymphocytes % 22.9 Monocytes % 8.5 Eosinophils % 2.4 Basophils % 0.2 Nucleated Red Blood Cells % 0.0 Neutrophils # (Manual) 5.3 Lymphocytes # 1.9 Monocytes # 0.7 Eosinophils # 0.2 Basophils # 0.0 Nucleated Red Blood Cells # 0.0 Sodium Level 137 Potassium Level 3.9 Chloride Level 106 Carbon Dioxide Level 25 Anion Gap 10 Blood Urea Nitrogen 7 Creatinine 0.58 Glucose Level 159 Calcium Level 8.8 Magnesium Level 2.1 Total Bilirubin 0.4 Direct Bilirubin 0.00 Indirect Bilirubin 0.4 Aspartate Amino Transf (AST/SGOT) 14 L Alanine Aminotransferase (ALT/SGPT) 23 Alkaline Phosphatase 72 Total Protein 6.2 Albumin 3.2 L Globulin 3.00 Albumin/Globulin Ratio 1.06 Medications Medications Current Medications Ondansetron HCl (Zofran Inj) 4 mg Q6H PRN IV NAUSEA AND/OR VOMITING; Start 07/10 at 22:30 Acetaminophen (Tylenol Tab) 650 mg Q6H PRN PO PAIN LEVEL 1-3 OR FEVER Last administered on 07/12/17 13:24; Admin Dose 650 MG; Start 07/10/17 at 22:30 Docusate Sodium (Colace) 100 mg Q12H PRN PO CONSTIPATION; Start 07/10/17 at 22: 30 Bisacodyl (Dulcolax) 5 mg DAILY PRN PO CONSTIPATION; Start 07/10/17 at 22:30 Famotidine (Pepcid) 20 mg Q12 PO Last administered on 07/13/17 20:34; Admin Dose 20 MG; Start 07/10/17 at 22:30 Aspirin (Halfprin) 81 mg DAILY PO Last administered on 07/13/17 08:59; Admin Dose 81 MG; Start 07/11/17 at 09:00 Atorvastatin Calcium (Lipitor) 40 mg QHS PO Last administered on 07/13/17 20:34 ; Admin Dose 40 MG; Start 07/11/17 at 21:00 Fluticasone Propionate (Flonase 0.05% Nasal) 1 spray DAILY NASAL ; Start at 09:00 Diagnostic Test (Pha) (Accu-Chek) 1 ea 02 XX ; Start 07/12/17 at 02:00 Miscellaneous Information 1 ea NOTE XX ; Start 07/11/17 at 04:30 Glucose (Glutose) 15 gm Q15M PRN PO DECREASED GLUCOSE; Start 07/11/17 at 04:30 Glucose (Glutose) 22.5 gm Q15M PRN PO DECREASED GLUCOSE; Start 07/11/17 at 04:30 Dextrose (D50w Syringe) 25 ml Q15M PRN IV DECREASED GLUCOSE; Start 07/11/17 at 04:30 Dextrose (D50w Syringe) 50 ml Q15M PRN IV DECREASED GLUCOSE; Start 07/11/17 at 04:30 Glucagon (Glucagen) 1 mg Q15M PRN IM DECREASED GLUCOSE; Start 07/11/17 at 04:30 Glucose 15 gm 15 gm Q15M PRN BUCCAL DECREASED GLUCOSE; Start 07/11/17 at 04:30 Levofloxacin/ Dextrose 150 ml @ 100 mls/hr Q24H IVPB Last administered on 08:59; Admin Dose 100 MLS/HR; Start 07/12/17 at 09:00 Ferric Sodium Gluconate Complex/ Sodium Chloride (Ferrlecit/NS) 110 ml @ 110 mls/hr Q24H IVPB Last administered on 07/13/17 10:55; Admin Dose 110 MLS/HR; Start 07/13/17 at 09:00; Stop 07/17/17 at 09:59 Enoxaparin Sodium (Lovenox) 30 mg DAILY SC ; Start 07/14/17 at 09:00 JOSE SOLORZANO MD Jul 13, 2017 23:57
[2017-07-14] VITALS (11 sets, daily range): BP systolic 102–151; BP diastolic 49–74; PULSE 49–79; RESP 18–20
[2017-07-14] MEDS: ACCU-CHEK XX SCH (02:00)
[2017-07-14] MEDS: INSULIN ASPART [NOVOLOG] 3 ML PEN SC SCH ×4 (07:30→21:00)
[2017-07-14] MEDS ORDERED: ENOXAPARIN 30 MG/0.3 ML SYG SC SCH (09:00)
[2017-07-14] MEDS: FLUTICASONE 0.05% 16 GM NAS SPRAY NASAL SCH (09:00)
[2017-07-14] MEDS: ASPIRIN (EC) 81 MG TAB PO SCH (09:27)
[2017-07-14] MEDS: FAMOTIDINE 20 MG TAB PO SCH ×2 (09:27→21:19)
[2017-07-14] MEDS: LEVOFLOXACIN 750MG/D5W (PMX) 150 ML IVPB SCH (09:27)
[2017-07-14] MEDS: SOD FERRIC GLUC COMPLX 125 MG in SOD CHLORIDE 0.9% 100 ML IVPB SCH (10:46)
[2017-07-14] MEDS: ACETAMINOPHEN 325 MG TAB PO PRN (10:46)
[2017-07-14 11:33] LABS: BASOPHILS % 0.3 % (0.0-2.0); EOSINOPHILS # 0.2 10^3/ul (0.0-0.5); EOSINOPHILS % 3.1 % (0.0-7.0); HEMATOCRIT 33.9 % (37.0-47.0); HEMOGLOBIN 11.2 g/dl (12.0-16.0); LYMPHOCYTES # 1.7 10^3/ul (0.8-2.9); LYMPHOCYTES % 28.5 % (15.0-51.0); MEAN CORPUSCULAR HEMOGLOBIN 25.7 pg (29.0-33.0); MEAN CORPUSCULAR VOLUME 77.9 fl (82.0-101.0); MEAN PLATELET VOLUME 10.3 fl (7.4-10.4); MONOCYTE # 0.6 10^3/ul (0.3-0.9); MONOCYTES % 9.9 % (0.0-11.0); PLATELET COUNT 326 10^3/UL (140-415); RED BLOOD COUNT 4.35 10^6/ul (4.20-5.40); WHITE BLOOD COUNT 6.1 10^3/ul (4.8-10.8)
[2017-07-14 12:24] LABS: ALBUMIN 3.7 g/dl (3.3-4.9); ALBUMIN/GLOBULIN RATIO 1.08; BILIRUBIN,INDIRECT 0.2 mg/dl (0-1.1); BILIRUBIN,TOTAL 0.2 mg/dl (0.2-1.3); CREATININE 0.57 mg/dl (0.44-1.00); POTASSIUM 3.5 mmol/L (3.5-5.1); TOTAL PROTEIN 7.1 g/dl (6.1-8.1)
--- NOTE | 2017-07-14 13:47 | CONS ---
DATE OF ADMISSION: 07/10/2017 DATE OF CONSULTATION: 07/14/2017 TYPE OF CONSULTATION: Cardiac Electrophysiology HISTORY OF PRESENT ILLNESS: The patient was admitted on 07/10/2017 with an episode of syncope. It was preceded by a day of dizziness and lightheadedness. On admission, she was noted to have a urinary tract infection with elevated white blood cell count. In addition, she had an episode of complete heart block which improved with atropine. Prior to admission she was on carvedilol 6.25 mg twice daily. Currently, she is feeling significantly better with no further episodes of lightheadedness or dizziness. She has had periods of sinus bradycardia while on telemetry. LABORATORY: White count 8.1, hematocrit 32.9, platelet count 263. Sodium 137, potassium 3.9, BUN 7, creatinine 0.58. EKGs on admission, sinus rhythm with a left bundle branch block. Telemetry strips reviewed show complete heart block. MEDICATIONS: 1. Subcutaneous Lovenox. 2. Levaquin. 3. Aspirin. PHYSICAL EXAMINATION: VITAL SIGNS: Temperature 98.3. Pulse 62. Blood pressure 112/74. NECK: No jugular venous distention. LUNGS: Clear. CARDIAC: Exam reveals a regular rate and rhythm. ABDOMEN: Soft, nontender, and nondistended. EXTREMITIES: Reveal no clubbing, cyanosis or edema. ASSESSMENT: 1. Urinary tract infection. Improved on antibiotics. 2. Syncope with left bundle branch block and complete heart block. RECOMMENDATIONS: While decision making is certainly complicated in this patient's case, by her sepsis, it is difficult to explain how this would have caused her complete heart block and left bundle branch block. I am concerned about her syncope and complete heart block. As such, we will proceed with pacemaker, as her sepsis appears to have improved and she is afebrile, and white count is within normal. I have explained the procedure to the patient and her son, including the risks of bleeding, hematoma, tamponade, infection, and pneumothorax. She understands and is willing to proceed. Dictated By: Dewayne Guzman MD /lizandro/sanjuana /Document#: [id number]
--- NOTE | 2017-07-14 14:51 | CONS ---
Date/Time of Note Date/Time of Note DATE: 07/14/17 TIME: 14:48 Assessment/Plan Assessment/Plan Problems: (1) Thyrotoxicosis without thyroid storm Status: Acute Comment: Due to excess thyroid hormone replacement. Recheck TSH prior to discharge and adjust LT4 dose Qualifiers: Thyrotoxicosis type: other Qualified Code: E05.80 - Other thyrotoxicosis without thyrotoxic crisis or storm (2) Type 2 diabetes mellitus without complications Status: Chronic Consultation Date/Type/Reason Admit Date/Time Jul 10, 2017 at 22:15 Initial Consult Date 07/11/17 Type of Consultation: endocrine Reason for Consultation Thyroid management Referring Provider: RIKA WHITE MD 24 HR Interval Summary Free Text/Dictation Patient feeling better. Constitutional: improved Exam/Review of Systems Vital Signs Vitals Vital Signs Date Time Temp Pulse Resp B/P Pulse Ox O2 Delivery O2 Flow Rate FiO2 07/14/17 12:00 97.6 67 20 123/61 100 Room Air 07/14/17 09:30 2.0 Intake and Output 07/13/17 07/13/17 07/14/17 15:00 23:00 07:00 Intake Total 250 ml 850 ml Balance 250 ml 850 ml Exam Constitutional: alert, oriented, well developed Neck: supple, thyromegaly Respiratory: clear to auscultation Cardiovascular: regular rate and rhythm Gastrointestinal: soft Musculoskeletal: nl extremities to inspection Results Result Diagram: 07/14/17 1045 07/14/17 1045 Results 24 hrs Laboratory Tests Test 07/13/17 20:31 07/14/17 07:29 07/14/17 10:45 07/14/17 12:13 Bedside Glucose 139 122 160 White Blood Count 6.1 # Red Blood Count 4.35 Hemoglobin 11.2 L Hematocrit 33.9 L Mean Corpuscular Volume 77.9 L Mean Corpuscular Hemoglobin 25.7 L Mean Corpuscular Hemoglobin Concent 33.0 Red Cell Distribution Width 15.0 H Platelet Count 326 # Mean Platelet Volume 10.3 Neutrophils % 58.0 Lymphocytes % 28.5 Monocytes % 9.9 Eosinophils % 3.1 Basophils % 0.3 Nucleated Red Blood Cells % 0.0 Neutrophils # (Manual) 3.5 Lymphocytes # 1.7 Monocytes # 0.6 Eosinophils # 0.2 Basophils # 0.0 Nucleated Red Blood Cells # 0.0 Sodium Level 142 Potassium Level 3.5 Chloride Level 107 Carbon Dioxide Level 25 Anion Gap 14 Blood Urea Nitrogen 9 Creatinine 0.57 Glucose Level 149 Calcium Level 9.0 Magnesium Level 2.2 Total Bilirubin 0.2 Direct Bilirubin 0.00 Indirect Bilirubin 0.2 Aspartate Amino Transf (AST/SGOT) 20 Alanine Aminotransferase (ALT/SGPT) 26 Alkaline Phosphatase 83 Total Protein 7.1 Albumin 3.7 Globulin 3.40 H Albumin/Globulin Ratio 1.08 Medications Medications Current Medications Ondansetron HCl (Zofran Inj) 4 mg Q6H PRN IV NAUSEA AND/OR VOMITING; Start 07/10 at 22:30 Acetaminophen (Tylenol Tab) 650 mg Q6H PRN PO PAIN LEVEL 1-3 OR FEVER Last administered on 07/14/17 10:46; Admin Dose 650 MG; Start 07/10/17 at 22:30 Docusate Sodium (Colace) 100 mg Q12H PRN PO CONSTIPATION; Start 07/10/17 at 22: 30 Bisacodyl (Dulcolax) 5 mg DAILY PRN PO CONSTIPATION; Start 07/10/17 at 22:30 Famotidine (Pepcid) 20 mg Q12 PO Last administered on 07/14/17 09:27; Admin Dose 20 MG; Start 07/10/17 at 22:30 Aspirin (Halfprin) 81 mg DAILY PO Last administered on 07/14/17 09:27; Admin Dose 81 MG; Start 07/11/17 at 09:00 Atorvastatin Calcium (Lipitor) 40 mg QHS PO Last administered on 07/13/17 20:34 ; Admin Dose 40 MG; Start 07/11/17 at 21:00 Fluticasone Propionate (Flonase 0.05% Nasal) 1 spray DAILY NASAL ; Start at 09:00 Diagnostic Test (Pha) (Accu-Chek) 1 ea 02 XX ; Start 07/12/17 at 02:00 Miscellaneous Information 1 ea NOTE XX ; Start 07/11/17 at 04:30 Glucose (Glutose) 15 gm Q15M PRN PO DECREASED GLUCOSE; Start 07/11/17 at 04:30 Glucose (Glutose) 22.5 gm Q15M PRN PO DECREASED GLUCOSE; Start 07/11/17 at 04:30 Dextrose (D50w Syringe) 25 ml Q15M PRN IV DECREASED GLUCOSE; Start 07/11/17 at 04:30 Dextrose (D50w Syringe) 50 ml Q15M PRN IV DECREASED GLUCOSE; Start 07/11/17 at 04:30 Glucagon (Glucagen) 1 mg Q15M PRN IM DECREASED GLUCOSE; Start 07/11/17 at 04:30 Glucose 15 gm 15 gm Q15M PRN BUCCAL DECREASED GLUCOSE; Start 07/11/17 at 04:30 Levofloxacin/ Dextrose 150 ml @ 100 mls/hr Q24H IVPB Last administered on 07/14 09:27; Admin Dose 100 MLS/HR; Start 07/12/17 at 09:00 Ferric Sodium Gluconate Complex/ Sodium Chloride (Ferrlecit/NS) 110 ml @ 110 mls/hr Q24H IVPB Last administered on 07/14/17 10:46; Admin Dose 110 MLS/HR; Start 07/13/17 at 09:00; Stop 07/17/17 at 09:59 Enoxaparin Sodium (Lovenox) 30 mg DAILY SC Last administered on 07/14/17 09:29 ; Admin Dose 30 MG; Start 07/14/17 at 09:00 JOSE SOLORZANO MD Jul 14, 2017 14:51
--- NOTE | 2017-07-14 17:21 | PN ---
Date/Time of Note Date/Time of Note DATE: 07/14/17 TIME: 17:19 Assessment/Plan VTE Prophylaxis VTE Prophylaxis Intervention: contraindicated Lines/Catheters [facility] Saline Lock Urinary Cath still in place: No Assessment/Plan Chief Complaint/Hosp Course 62 yo female wtih h/o hypertension who presented with syncope. Found to have sepsis 2/2 UTI, intermittent complete heart block, hypokalemia, and iatrogenic hyperthyroidism Complete heart block: - Plan for PPM implantation in the AM Sepsis 2/2 UTI: - UC growing sensitive proteus - Continue levaquin Hyperthyroidism: - Iatrogenic as she had been on LT4 supplementation as outpatient - Hold synthroid and monitor TFTs in coming month as outpatient Iron deficiency anemia: - Iron supplemetnation Discharge to home in coming days Problems: Subjective 24 Hr Interval Summary Free Text/Dictation Feels well, no complaints Awaiting PPM implantation tomorrow Exam/Review of Systems Vital Signs Vitals Vital Signs Date Time Temp Pulse Resp B/P Pulse Ox O2 Delivery O2 Flow Rate FiO2 07/14/17 15:53 98.1 65 20 125/61 100 Room Air 07/14/17 09:30 2.0 Intake and Output 07/13/17 07/13/17 07/14/17 15:00 23:00 07:00 Intake Total 250 ml 850 ml Balance 250 ml 850 ml Exam Well apperaing no distress RRR, no m/r/g CLear lungs No edema Results Result Diagram: 07/14/17 1045 07/14/17 1045 Results 24 hrs Laboratory Tests Test 07/13/17 20:31 07/14/17 07:29 07/14/17 10:45 07/14/17 12:13 Bedside Glucose 139 122 160 White Blood Count 6.1 # Red Blood Count 4.35 Hemoglobin 11.2 L Hematocrit 33.9 L Mean Corpuscular Volume 77.9 L Mean Corpuscular Hemoglobin 25.7 L Mean Corpuscular Hemoglobin Concent 33.0 Red Cell Distribution Width 15.0 H Platelet Count 326 # Mean Platelet Volume 10.3 Neutrophils % 58.0 Lymphocytes % 28.5 Monocytes % 9.9 Eosinophils % 3.1 Basophils % 0.3 Nucleated Red Blood Cells % 0.0 Neutrophils # (Manual) 3.5 Lymphocytes # 1.7 Monocytes # 0.6 Eosinophils # 0.2 Basophils # 0.0 Nucleated Red Blood Cells # 0.0 Sodium Level 142 Potassium Level 3.5 Chloride Level 107 Carbon Dioxide Level 25 Anion Gap 14 Blood Urea Nitrogen 9 Creatinine 0.57 Glucose Level 149 Calcium Level 9.0 Magnesium Level 2.2 Total Bilirubin 0.2 Direct Bilirubin 0.00 Indirect Bilirubin 0.2 Aspartate Amino Transf (AST/SGOT) 20 Alanine Aminotransferase (ALT/SGPT) 26 Alkaline Phosphatase 83 Total Protein 7.1 Albumin 3.7 Globulin 3.40 H Albumin/Globulin Ratio 1.08 Medications Medications Current Medications Ondansetron HCl (Zofran Inj) 4 mg Q6H PRN IV NAUSEA AND/OR VOMITING; Start 07/10 at 22:30 Acetaminophen (Tylenol Tab) 650 mg Q6H PRN PO PAIN LEVEL 1-3 OR FEVER Last administered on 07/14/17 10:46; Admin Dose 650 MG; Start 07/10/17 at 22:30 Docusate Sodium (Colace) 100 mg Q12H PRN PO CONSTIPATION; Start 07/10/17 at 22: 30 Bisacodyl (Dulcolax) 5 mg DAILY PRN PO CONSTIPATION; Start 07/10/17 at 22:30 Famotidine (Pepcid) 20 mg Q12 PO Last administered on 07/14/17 09:27; Admin Dose 20 MG; Start 07/10/17 at 22:30 Aspirin (Halfprin) 81 mg DAILY PO Last administered on 07/14/17 09:27; Admin Dose 81 MG; Start 07/11/17 at 09:00 Atorvastatin Calcium (Lipitor) 40 mg QHS PO Last administered on 07/13/17 20:34 ; Admin Dose 40 MG; Start 07/11/17 at 21:00 Fluticasone Propionate (Flonase 0.05% Nasal) 1 spray DAILY NASAL ; Start at 09:00 Diagnostic Test (Pha) (Accu-Chek) 1 ea 02 XX ; Start 07/12/17 at 02:00 Miscellaneous Information 1 ea NOTE XX ; Start 07/11/17 at 04:30 Glucose (Glutose) 15 gm Q15M PRN PO DECREASED GLUCOSE; Start 07/11/17 at 04:30 Glucose (Glutose) 22.5 gm Q15M PRN PO DECREASED GLUCOSE; Start 07/11/17 at 04:30 Dextrose (D50w Syringe) 25 ml Q15M PRN IV DECREASED GLUCOSE; Start 07/11/17 at 04:30 Dextrose (D50w Syringe) 50 ml Q15M PRN IV DECREASED GLUCOSE; Start 07/11/17 at 04:30 Glucagon (Glucagen) 1 mg Q15M PRN IM DECREASED GLUCOSE; Start 07/11/17 at 04:30 Glucose 15 gm 15 gm Q15M PRN BUCCAL DECREASED GLUCOSE; Start 07/11/17 at 04:30 Levofloxacin/ Dextrose 150 ml @ 100 mls/hr Q24H IVPB Last administered on 07/14 09:27; Admin Dose 100 MLS/HR; Start 07/12/17 at 09:00 Ferric Sodium Gluconate Complex/ Sodium Chloride (Ferrlecit/NS) 110 ml @ 110 mls/hr Q24H IVPB Last administered on 07/14/17 10:46; Admin Dose 110 MLS/HR; Start 07/13/17 at 09:00; Stop 07/17/17 at 09:59 Enoxaparin Sodium (Lovenox) 30 mg DAILY SC Last administered on 07/14/17 09:29 ; Admin Dose 30 MG; Start 07/14/17 at 09:00 RIKA WHITE MD Jul 14, 2017 17:21
[2017-07-14] MEDS: ATORVASTATIN 40 MG TAB PO SCH (21:19)
[2017-07-15] VITALS (23 sets, daily range): BP systolic 115–136; BP diastolic 55–74; PULSE 60–73; RESP 15–24
[2017-07-15] MEDS: ACCU-CHEK XX SCH (02:00)
[2017-07-15] MEDS ORDERED: POLYMYXIN/BACITRACIN 1L IRRIG IRR ONE (07:00)
[2017-07-15] MEDS ORDERED: CEFAZOLIN 2 GM/50 ML (PMX) 50 ML IVPB ONE (07:27)
[2017-07-15] MEDS ORDERED: MIDAZOLAM 1 MG/ML 2 ML INJ ONE ×2 (07:27→07:37)
[2017-07-15] MEDS ORDERED: FENTAnyl 50 MCG/ML VIAL ONE (07:27)
[2017-07-15] MEDS ORDERED: LIDOCAINE 1% (MDV) 20 ML INJ ONE (07:30)
[2017-07-15] MEDS: INSULIN ASPART [NOVOLOG] 3 ML PEN SC SCH ×4 (07:48→21:00)
[2017-07-15 07:51] LABS: BASOPHILS % 0.3 % (0.0-2.0); EOSINOPHILS # 0.2 10^3/ul (0.0-0.5); EOSINOPHILS % 2.3 % (0.0-7.0); HEMOGLOBIN 10.5 g/dl (12.0-16.0); LYMPHOCYTES % 26.2 % (15.0-51.0); MEAN CORPUSCULAR HEMOGLOBIN 25.1 pg (29.0-33.0); MEAN CORPUSCULAR HGB CONC 31.8 g/dl (32.0-37.0); MEAN CORPUSCULAR VOLUME 78.9 fl (82.0-101.0); MONOCYTE # 0.7 10^3/ul (0.3-0.9); MONOCYTES % 9.1 % (0.0-11.0); NEUTROPHILS % 61.7 % (39.0-77.0); PLATELET COUNT 338 10^3/UL (140-415); RED BLOOD COUNT 4.18 10^6/ul (4.20-5.40); RED CELL DISTRIBUTION WIDTH 15.3 % (11.5-14.5); WHITE BLOOD COUNT 7.7 10^3/ul (4.8-10.8)
[2017-07-15 08:14] LABS: ALBUMIN 3.5 g/dl (3.3-4.9); ALBUMIN/GLOBULIN RATIO 1.09; BILIRUBIN,INDIRECT 0.3 mg/dl (0-1.1); BILIRUBIN,TOTAL 0.3 mg/dl (0.2-1.3); CREATININE 0.6 mg/dl (0.44-1.00); POTASSIUM 4.5 mmol/L (3.5-5.1); TOTAL PROTEIN 6.7 g/dl (6.1-8.1)
--- NOTE | 2017-07-15 08:50 | SIPON ---
Date/Time of Note Date/Time of Note DATE: 07/15/17 TIME: 08:48 Operative Report Preoperative Diagnosis Complete heart block Postoperative Diagnosis Same Operation/Procedure Performed Dual Chamber Pacemaker Surgeon: MANSI IVY MD Anesthesia Type: moderate sedation Estimated Blood Loss: 0 - 10 ml's Transfusion Required: no Specimen: none Grafts/Implants [employer] Complications: no Complications No Immediate MANSI IVY MD Jul 15, 2017 08:50
--- NOTE | 2017-07-15 09:39 | RADRPT ---
PROCEDURE: XR Chest. CLINICAL INDICATION: Status post pacemaker placement . TECHNIQUE: Single frontal chest x-ray. COMPARISON: 07/10/2017 FINDINGS: The lungs are clear of acute infiltrates, edema, effusions, or masses. There has been interval place ment of dual chamber cardiac pacer overlying left chest there is no evidence of pneumothorax. Low harish ng volumes are present.. The cardiomediastinal silhouette is unremarkable. The osseous structures a re intact. IMPRESSION: No acute cardiopulmonary disease. Interval placement of left-sided dual chamber cardiac pacer without evidence of pneumothorax. Low lung volumes. RPTAT: KK .Marv Carlisle MD, MD Date Time Electronically viewed and signed by .Marv Carlisle MD, on 07/15/2017 09:38 .L/
--- NOTE | 2017-07-15 10:21 | OPR ---
DATE OF OPERATION: 07/15/2017 SURGEON: Dewayne Guzman MD PREOPERATIVE DIAGNOSIS: Intermittent complete heart block. The patient presents to the hospital with syncope and noted to have periods of heart block on the laboratory monitor. OPERATIVE PROCEDURE: Patient brought to the catheterization laboratory in a fasting state. Informed consent was signed for the procedure and sedation, the patient was sedated with incremental doses of fentanyl and Versed.. Left pectoral region was prepped and draped in the usual fashion. 2 grams of Ancef was given prior to skin incision. 1 percent lidocaine was infused under the clavicle, prior to skin incision. A number 15 scalpel blade was used to make a 3 cm incision under the clavicle. Using combination of blunt dissection and electrocautery, the tissue was dissected to the pectoral fascia. A pacemaker pocket was formed. Venogram using 10 mL of contrast was used to localize the basilic vein. Access was obtained using a micropuncture kit. The wire was passed below the diaphragm with a 6-Mauritian sheath inserted over the wire. Two wires were inserted through the 6-Mauritian sheath and a 6-Mauritian sheath was removed. The 2 wires were used for the two separate leads. A 6-Mauritian sheath was placed in the subclavian vein, through which a [employer] pacemaker wire was passed through the tricuspid valve to the lower RV septum where excellent pacing and sensing characteristics were confirmed. The sheath was slit and the lead was sutured to the fascia using #0 silk nonresorbable sutures. A second 6-Mauritian sheath was passed to the subclavian vein. A lead was passed to the right atrial appendage and screwed into place. Excellent pacing and sensing characteristics were confirmed. The sheath was slit and the lead was sutured to the fascia using #0 silk non-absorbable sutures. The pacemaker was attached to the leads, normal function was confirmed. Pocket was irrigated with antibiotic solution. Pocket was closed in layers using #2-0 and #4-0 absorbable sutures. Surgical adhesive was applied to the skin. 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 Dictated By: Dewayne Guzman MD /[email or web address] /Document#: [id number]
[2017-07-15] MEDS: ASPIRIN (EC) 81 MG TAB PO SCH (10:44)
[2017-07-15] MEDS: FAMOTIDINE 20 MG TAB PO SCH ×2 (10:45→21:17)
[2017-07-15] MEDS: LEVOFLOXACIN 750MG/D5W (PMX) 150 ML IVPB SCH (10:46)
[2017-07-15] MEDS: SOD FERRIC GLUC COMPLX 125 MG in SOD CHLORIDE 0.9% 100 ML IVPB SCH (10:46)
[2017-07-15] MEDS: FLUTICASONE 0.05% 16 GM NAS SPRAY NASAL SCH (10:47)
[2017-07-15] MEDS: ACETAMINOPHEN 325 MG TAB PO PRN (14:54)
--- NOTE | 2017-07-15 15:06 | PN ---
Date/Time of Note Date/Time of Note DATE: 07/15/17 TIME: 15:03 Assessment/Plan VTE Prophylaxis VTE Prophylaxis Intervention: SCD's Lines/Catheters IV [facility]ter Type (from [facility]): Saline Lock Urinary Cath still in place: No Assessment/Plan Chief Complaint/Hosp Course 62 yo female with h/o hypertension who presented with syncope. Found to have sepsis 2/2 UTI, intermittent complete heart block, hypokalemia, and iatrogenic hyperthyroidism Syncope 2/2 Complete heart block: - s/p PPM today Sepsis 2/2 UTI: - UC growing sensitive proteus - Continue levaquin Hyperthyroidism: - Iatrogenic as she had been on LT4 supplementation as outpatient - Hold Synthroid and monitor TFTs in coming month as outpatient Iron deficiency anemia: - Iron supplementation Prophylaxis: SCDs Discharge-DC in 1-2 days Problems: Subjective 24 Hr Interval Summary Constitutional: no complaints Exam/Review of Systems Vital Signs Vitals Vital Signs Date Time Temp Pulse Resp B/P Pulse Ox O2 Delivery O2 Flow Rate FiO2 07/15/17 12:54 68 07/15/17 11:20 98.1 19 133/61 99 07/15/17 10:10 Room Air 07/14/17 20:00 2.0 Intake and Output 07/14/17 07/14/17 07/15/17 15:00 23:00 07:00 Intake Total 1000 ml 800 ml 900 ml Balance 1000 ml 800 ml 900 ml Exam Constitutional: alert, oriented Respiratory: clear to auscultation Cardiovascular: regular rate and rhythm Gastrointestinal: soft, No distended Musculoskeletal: nl extremities to inspection Results Result Diagram: 07/15/17 0500 07/15/17 0500 Results 24 hrs Laboratory Tests Test 07/14/17 17:23 07/14/17 21:16 07/15/17 05:00 07/15/17 06:00 Bedside Glucose 84 159 White Blood Count 7.7 # Red Blood Count 4.18 L Hemoglobin 10.5 L Hematocrit 33.0 L Mean Corpuscular Volume 78.9 L Mean Corpuscular Hemoglobin 25.1 L Mean Corpuscular Hemoglobin Concent 31.8 L Red Cell Distribution Width 15.3 H Platelet Count 338 Mean Platelet Volume 10.0 Neutrophils % 61.7 Lymphocytes % 26.2 Monocytes % 9.1 Eosinophils % 2.3 Basophils % 0.3 Nucleated Red Blood Cells % 0.0 Neutrophils # (Manual) 4.7 Lymphocytes # 2.0 Monocytes # 0.7 Eosinophils # 0.2 Basophils # 0.0 Nucleated Red Blood Cells # 0.0 Sodium Level 141 Potassium Level 4.5 Chloride Level 108 Carbon Dioxide Level 27 Anion Gap 11 Blood Urea Nitrogen 7 Creatinine 0.60 Glucose Level 106 # Calcium Level 9.0 Total Bilirubin 0.3 Direct Bilirubin 0.00 Indirect Bilirubin 0.3 Aspartate Amino Transf (AST/SGOT) 14 L Alanine Aminotransferase (ALT/SGPT) 26 Alkaline Phosphatase 78 Total Protein 6.7 Albumin 3.5 Globulin 3.20 Albumin/Globulin Ratio 1.09 Magnesium Level 2.3 Test 07/15/17 10:51 07/15/17 12:41 Bedside Glucose 92 124 Medications Medications Current Medications Ondansetron HCl (Zofran Inj) 4 mg Q6H PRN IV NAUSEA AND/OR VOMITING; Start 07/10 at 22:30 Acetaminophen (Tylenol Tab) 650 mg Q6H PRN PO PAIN LEVEL 1-3 OR FEVER Last administered on 07/15/17 14:54; Admin Dose 650 MG; Start 07/10/17 at 22:30 Docusate Sodium (Colace) 100 mg Q12H PRN PO CONSTIPATION; Start 07/10/17 at 22: 30 Bisacodyl (Dulcolax) 5 mg DAILY PRN PO CONSTIPATION; Start 07/10/17 at 22:30 Famotidine (Pepcid) 20 mg Q12 PO Last administered on 07/15/17 10:45; Admin Dose 20 MG; Start 07/10/17 at 22:30 Aspirin (Halfprin) 81 mg DAILY PO Last administered on 07/15/17 10:44; Admin Dose 81 MG; Start 07/11/17 at 09:00 Atorvastatin Calcium (Lipitor) 40 mg QHS PO Last administered on 07/14/17 21: 19; Admin Dose 40 MG; Start 07/11/17 at 21:00 Fluticasone Propionate (Flonase 0.05% Nasal) 1 spray DAILY NASAL Last administered on 07/15/17 10:47; Admin Dose 1 SPRAY; Start 07/11/17 at 09:00 Diagnostic Test (Pha) (Accu-Chek) 1 ea 02 XX ; Start 07/12/17 at 02:00 Miscellaneous Information 1 ea NOTE XX ; Start 07/11/17 at 04:30 Glucose (Glutose) 15 gm Q15M PRN PO DECREASED GLUCOSE; Start 07/11/17 at 04:30 Glucose (Glutose) 22.5 gm Q15M PRN PO DECREASED GLUCOSE; Start 07/11/17 at 04:30 Dextrose (D50w Syringe) 25 ml Q15M PRN IV DECREASED GLUCOSE; Start 07/11/17 at 04:30 Dextrose (D50w Syringe) 50 ml Q15M PRN IV DECREASED GLUCOSE; Start 07/11/17 at 04:30 Glucagon (Glucagen) 1 mg Q15M PRN IM DECREASED GLUCOSE; Start 07/11/17 at 04:30 Glucose 15 gm 15 gm Q15M PRN BUCCAL DECREASED GLUCOSE; Start 07/11/17 at 04:30 Levofloxacin/ Dextrose 150 ml @ 100 mls/hr Q24H IVPB Last administered on 07/15 10:46; Admin Dose 100 MLS/HR; Start 07/12/17 at 09:00 Ferric Sodium Gluconate Complex/ Sodium Chloride (Ferrlecit/NS) 110 ml @ 110 mls/hr Q24H IVPB Last administered on 07/15/17 10:46; Admin Dose 110 MLS/HR; Start 07/13/17 at 09:00; Stop 07/17/17 at 09:59 LATRICE LUI Jul 15, 2017 15:06
--- NOTE | 2017-07-15 15:11 | CONS ---
Date/Time of Note Date/Time of Note DATE: 07/15/17 TIME: 15:07 Assessment/Plan Assessment/Plan Additional Assessment/Plan Intermittent heart block status post pacemaker 07/15/2017 Preserved ejection fraction Abnormal ECG with left bundle branch block Sepsis likely secondary to UTI Hypertension -Patient status post pacemaker today secondary to intermittent heart block which also occurred in the operating room. Antibiotics as per primary team. Consultation Date/Type/Reason Admit Date/Time Jul 10, 2017 at 22:15 Initial Consult Date 07/11/17 Type of Consultation: cv Referring Provider: RIKA WHITE MD 24 HR Interval Summary Free Text/Dictation Complaining of pain at the pacemaker pocket site, denies shortness of breath, dizziness Exam/Review of Systems Vital Signs Vitals Vital Signs Date Time Temp Pulse Resp B/P Pulse Ox O2 Delivery O2 Flow Rate FiO2 07/15/17 12:54 68 07/15/17 11:20 98.1 19 133/61 99 07/15/17 10:10 Room Air 07/14/17 20:00 2.0 Intake and Output 07/14/17 07/14/17 07/15/17 14:59 22:59 06:59 Intake Total 1000 ml 800 ml 900 ml Balance 1000 ml 800 ml 900 ml Exam No apparent distress Constitutional: alert, oriented Head: normocephalic Respiratory: other (Coarse breath sounds bilaterally, no wheezing) Cardiovascular: other (S1-S2 heard), regular rate and rhythm Gastrointestinal: bowel sounds, non-tender, soft Extremities: edema (Trace), other Results Result Diagram: 07/15/17 0500 07/15/17 0500 Results 24 hrs Laboratory Tests Test 07/14/17 17:23 07/14/17 21:16 07/15/17 05:00 07/15/17 06:00 Bedside Glucose 84 159 White Blood Count 7.7 # Red Blood Count 4.18 L Hemoglobin 10.5 L Hematocrit 33.0 L Mean Corpuscular Volume 78.9 L Mean Corpuscular Hemoglobin 25.1 L Mean Corpuscular Hemoglobin Concent 31.8 L Red Cell Distribution Width 15.3 H Platelet Count 338 Mean Platelet Volume 10.0 Neutrophils % 61.7 Lymphocytes % 26.2 Monocytes % 9.1 Eosinophils % 2.3 Basophils % 0.3 Nucleated Red Blood Cells % 0.0 Neutrophils # (Manual) 4.7 Lymphocytes # 2.0 Monocytes # 0.7 Eosinophils # 0.2 Basophils # 0.0 Nucleated Red Blood Cells # 0.0 Sodium Level 141 Potassium Level 4.5 Chloride Level 108 Carbon Dioxide Level 27 Anion Gap 11 Blood Urea Nitrogen 7 Creatinine 0.60 Glucose Level 106 # Calcium Level 9.0 Total Bilirubin 0.3 Direct Bilirubin 0.00 Indirect Bilirubin 0.3 Aspartate Amino Transf (AST/SGOT) 14 L Alanine Aminotransferase (ALT/SGPT) 26 Alkaline Phosphatase 78 Total Protein 6.7 Albumin 3.5 Globulin 3.20 Albumin/Globulin Ratio 1.09 Magnesium Level 2.3 Test 07/15/17 10:51 07/15/17 12:41 Bedside Glucose 92 124 Medications Medications Current Medications Ondansetron HCl (Zofran Inj) 4 mg Q6H PRN IV NAUSEA AND/OR VOMITING; Start 07/10 at 22:30 Acetaminophen (Tylenol Tab) 650 mg Q6H PRN PO PAIN LEVEL 1-3 OR FEVER Last administered on 07/15/17 14:54; Admin Dose 650 MG; Start 07/10/17 at 22:30 Docusate Sodium (Colace) 100 mg Q12H PRN PO CONSTIPATION; Start 07/10/17 at 22: 30 Bisacodyl (Dulcolax) 5 mg DAILY PRN PO CONSTIPATION; Start 07/10/17 at 22:30 Famotidine (Pepcid) 20 mg Q12 PO Last administered on 07/15/17 10:45; Admin Dose 20 MG; Start 07/10/17 at 22:30 Aspirin (Halfprin) 81 mg DAILY PO Last administered on 07/15/17 10:44; Admin Dose 81 MG; Start 07/11/17 at 09:00 Atorvastatin Calcium (Lipitor) 40 mg QHS PO Last administered on 07/14/17 21: 19; Admin Dose 40 MG; Start 07/11/17 at 21:00 Fluticasone Propionate (Flonase 0.05% Nasal) 1 spray DAILY NASAL Last administered on 07/15/17 10:47; Admin Dose 1 SPRAY; Start 07/11/17 at 09:00 Diagnostic Test (Pha) (Accu-Chek) 1 ea 02 XX ; Start 07/12/17 at 02:00 Miscellaneous Information 1 ea NOTE XX ; Start 9/7/17 at 04:30 Glucose (Glutose) 15 gm Q15M PRN PO DECREASED GLUCOSE; Start 07/11/17 at 04:30 Glucose (Glutose) 22.5 gm Q15M PRN PO DECREASED GLUCOSE; Start 07/11/17 at 04:30 Dextrose (D50w Syringe) 25 ml Q15M PRN IV DECREASED GLUCOSE; Start 07/11/17 at 04:30 Dextrose (D50w Syringe) 50 ml Q15M PRN IV DECREASED GLUCOSE; Start 07/11/17 at 04:30 Glucagon (Glucagen) 1 mg Q15M PRN IM DECREASED GLUCOSE; Start 07/11/17 at 04:30 Glucose 15 gm 15 gm Q15M PRN BUCCAL DECREASED GLUCOSE; Start 07/11/17 at 04:30 Levofloxacin/ Dextrose 150 ml @ 100 mls/hr Q24H IVPB Last administered on 07/15 10:46; Admin Dose 100 MLS/HR; Start 07/12/17 at 09:00 Ferric Sodium Gluconate Complex/ Sodium Chloride (Ferrlecit/NS) 110 ml @ 110 mls/hr Q24H IVPB Last administered on 07/15/17 10:46; Admin Dose 110 MLS/HR; Start 07/13/17 at 09:00; Stop 07/17/17 at 09:59 Jadon Hsieh DO Jul 15, 2017 15:11
[2017-07-15] MEDS: ATORVASTATIN 40 MG TAB PO SCH (21:16)
[2017-07-15] MEDS: HYDROCODONE/APAP (5/325) TAB GTB PRN (21:17)
[2017-07-16] VITALS (10 sets, daily range): BP systolic 115–140; BP diastolic 56–72; PULSE 60–90; RESP 16–18
[2017-07-16] MEDS: ACCU-CHEK XX SCH (02:00)
[2017-07-16] MEDS: HYDROCODONE/APAP (5/325) TAB GTB PRN ×2 (03:51→11:53)
[2017-07-16] MEDS ORDERED: LEVOFLOXACIN 750 MG TABLET PO SCH (06:00)
[2017-07-16] MEDS: INSULIN ASPART [NOVOLOG] 3 ML PEN SC SCH ×2 (07:55→12:09)
[2017-07-16 07:58] LABS: BASOPHILS % 0.4 % (0.0-2.0); EOSINOPHILS # 0.2 10^3/ul (0.0-0.5); EOSINOPHILS % 2.6 % (0.0-7.0); HEMATOCRIT 34.4 % (37.0-47.0); HEMOGLOBIN 11.1 g/dl (12.0-16.0); LYMPHOCYTES % 27.1 % (15.0-51.0); MEAN CORPUSCULAR HEMOGLOBIN 25.7 pg (29.0-33.0); MEAN CORPUSCULAR HGB CONC 32.3 g/dl (32.0-37.0); MEAN CORPUSCULAR VOLUME 79.6 fl (82.0-101.0); MEAN PLATELET VOLUME 9.6 fl (7.4-10.4); MONOCYTE # 0.6 10^3/ul (0.3-0.9); MONOCYTES % 8.3 % (0.0-11.0); NEUTROPHILS % 61.2 % (39.0-77.0); PLATELET COUNT 341 10^3/UL (140-415); RED BLOOD COUNT 4.32 10^6/ul (4.20-5.40); RED CELL DISTRIBUTION WIDTH 14.9 % (11.5-14.5); WHITE BLOOD COUNT 7.3 10^3/ul (4.8-10.8)
[2017-07-16 08:29] LABS: CREATININE 0.64 mg/dl (0.44-1.00); POTASSIUM 4.1 mmol/L (3.5-5.1)
[2017-07-16] MEDS: SOD FERRIC GLUC COMPLX 125 MG in SOD CHLORIDE 0.9% 100 ML IVPB SCH (08:54)
[2017-07-16] MEDS: ASPIRIN (EC) 81 MG TAB PO SCH (08:55)
[2017-07-16] MEDS: FAMOTIDINE 20 MG TAB PO SCH (08:55)
[2017-07-16] MEDS: FLUTICASONE 0.05% 16 GM NAS SPRAY NASAL SCH (08:55)
--- NOTE | 2017-07-16 15:07 | CONS ---
Date/Time of Note Date/Time of Note DATE: 07/16/17 TIME: 15:06 Assessment/Plan Assessment/Plan Additional Assessment/Plan Intermittent heart block status post pacemaker 07/15/2017 Preserved ejection fraction Abnormal ECG with left bundle branch block Sepsis likely secondary to UTI Hypertension -Overall feeling better. Antibiotics as per primary team. DC planning with outpatient follow-up for pacemaker check in 7-[address] Guzman Consultation Date/Type/Reason Admit Date/Time Jul 10, 2017 at 22:15 Initial Consult Date 07/11/17 Type of Consultation: cv Referring Provider: RIKA WHITE MD 24 HR Interval Summary Free Text/Dictation Denies shortness of breath, less pain at the pacemaker pocket site. Today with standing up, did have some dizziness. Currently feeling better Exam/Review of Systems Vital Signs Vitals Vital Signs Date Time Temp Pulse Resp B/P Pulse Ox O2 Delivery O2 Flow Rate FiO2 07/16/17 12:31 90 07/16/17 11:39 98.2 16 129/58 97 07/15/17 10:10 Room Air 07/14/17 20:00 2.0 Intake and Output 07/15/17 07/15/17 07/16/17 15:00 23:00 07:00 Intake Total 750 ml 450 ml Output Total 550 ml Balance 200 ml 450 ml Exam No apparent distress Constitutional: alert, oriented Head: normocephalic Respiratory: other (Coarse breath sounds bilaterally, no wheezing) Cardiovascular: other (S1-S2 heard), regular rate and rhythm Gastrointestinal: bowel sounds, non-tender, soft Musculoskeletal: other (Left chest wall pacemaker pocket site no erythema or drainage) Extremities: edema (Trace) Results Result Diagram: 07/16/17 0723 07/16/17 0723 Results 24 hrs Laboratory Tests Test 07/15/17 17:44 07/15/17 21:20 07/16/17 07:23 07/16/17 08:12 Bedside Glucose 199 98 94 White Blood Count 7.3 Red Blood Count 4.32 Hemoglobin 11.1 L Hematocrit 34.4 L Mean Corpuscular Volume 79.6 L Mean Corpuscular Hemoglobin 25.7 L Mean Corpuscular Hemoglobin Concent 32.3 Red Cell Distribution Width 14.9 H Platelet Count 341 Mean Platelet Volume 9.6 Neutrophils % 61.2 Lymphocytes % 27.1 Monocytes % 8.3 Eosinophils % 2.6 Basophils % 0.4 Nucleated Red Blood Cells % 0.0 Neutrophils # (Manual) 4.4 Lymphocytes # 2.0 Monocytes # 0.6 Eosinophils # 0.2 Basophils # 0.0 Nucleated Red Blood Cells # 0.0 Sodium Level 139 Potassium Level 4.1 Chloride Level 108 Carbon Dioxide Level 25 Anion Gap 10 Blood Urea Nitrogen 7 Creatinine 0.64 Glucose Level 96 Calcium Level 9.0 Magnesium Level 2.2 Test 07/16/17 11:49 Bedside Glucose 142 Medications Medications Current Medications Ondansetron HCl (Zofran Inj) 4 mg Q6H PRN IV NAUSEA AND/OR VOMITING; Start 07/10 at 22:30 Acetaminophen (Tylenol Tab) 650 mg Q6H PRN PO PAIN LEVEL 1-3 OR FEVER Last administered on 07/15/17 14:54; Admin Dose 650 MG; Start 07/10/17 at 22:30 Docusate Sodium (Colace) 100 mg Q12H PRN PO CONSTIPATION; Start 07/10/17 at 22: 30 Bisacodyl (Dulcolax) 5 mg DAILY PRN PO CONSTIPATION; Start 07/10/17 at 22:30 Famotidine (Pepcid) 20 mg Q12 PO Last administered on 07/16/17 08:55; Admin Dose 20 MG; Start 07/10/17 at 22:30 Aspirin (Halfprin) 81 mg DAILY PO Last administered on 07/16/17 08:55; Admin Dose 81 MG; Start 07/11/17 at 09:00 Atorvastatin Calcium (Lipitor) 40 mg QHS PO Last administered on 07/15/17 21: 16; Admin Dose 40 MG; Start 07/11/17 at 21:00 Fluticasone Propionate (Flonase 0.05% Nasal) 1 spray DAILY NASAL Last administered on 07/16/17 08:55; Admin Dose 1 SPRAY; Start 07/11/17 at 09:00 Diagnostic Test (Pha) (Accu-Chek) 1 ea 02 XX ; Start 07/12/17 at 02:00 Miscellaneous Information 1 ea NOTE XX ; Start 07/11/17 at 04:30 Glucose (Glutose) 15 gm Q15M PRN PO DECREASED GLUCOSE; Start 07/11/17 at 04:30 Glucose (Glutose) 22.5 gm Q15M PRN PO DECREASED GLUCOSE; Start 07/11/17 at 04:30 Dextrose (D50w Syringe) 25 ml Q15M PRN IV DECREASED GLUCOSE; Start 07/11/17 at 04:30 Dextrose (D50w Syringe) 50 ml Q15M PRN IV DECREASED GLUCOSE; Start 07/11/17 at 04:30 Glucagon (Glucagen) 1 mg Q15M PRN IM DECREASED GLUCOSE; Start 07/11/17 at 04:30 Glucose 15 gm 15 gm Q15M PRN BUCCAL DECREASED GLUCOSE; Start 07/11/17 at 04:30 Ferric Sodium Gluconate Complex/ Sodium Chloride (Ferrlecit/NS) 110 ml @ 110 mls/hr Q24H IVPB Last administered on 07/16/17 08:54; Admin Dose 110 MLS/HR; Start 07/13/17 at 09:00; Stop 07/17/17 at 09:59 Acetaminophen/ Hydrocodone Bitart ([place] (5/325)) 1 tab Q4H PRN GTB Pain Last administered on 07/16/17 11:53; Admin Dose 1 TAB; Start 07/15/17 at 15:30 Levofloxacin (Levaquin) 750 mg DAILY@06 PO Last administered on 07/16/17 06:24 ; Admin Dose 750 MG; Start 07/16/17 at 06:00 Jadon Hsieh DO Jul 16, 2017 15:07
--- NOTE | 2017-07-16 15:26 | PDOCDIS ---
Discharge Instructions CONDITION Patient Condition: Good HOME CARE INSTRUCTIONS: Special Diet: diabetic diet ACTIVITY: Activity Restrictions: Slowly Increase Activity FOLLOW UP/APPOINTMENTS Follow-up Plan Follow-up for pacemaker check in 7-[address] Guzman, follow up with PCP in 1-2 weeks LATRICE LUI Jul 16, 2017 15:26
--- NOTE | 2017-07-16 15:33 | DS ---
Date/Time of Note Date/Time of Note DATE: 07/16/17 TIME: 15:27 Discharge Summary Admission/Discharge Info Admit Date/Time Jul 10, 2017 at 22:15 Discharge Date/Time Syncope 2/2 Complete heart block: - s/p PPM Sepsis 2/2 UTI: Resolved - UC growing sensitive proteus -Status post Levaquin Hyperthyroidism: - Iatrogenic as she had been on LT4 supplementation as outpatient -Follow up with PCP Iron deficiency anemia: - Iron supplementation Hospital Course Patient is a 62-year-old female history of diabetes, hypertension and thyroidism. Patient presented with syncope and was found to have a complete heart block. Patient was seen by cardiology and pacemaker was placed. Patient was also diagnosed with sepsis secondary to UTI which was treated with antibiotics and resolved. Patient's 2D echo showed a normal EF with stage I diastolic heart failure, carotid ultrasound showed no significant stenosis. On the day of discharge patient's vitals labs and physical exam are stable, she had no further acute complaints and questions are answered. Patient was cleared for DC by cardiology. Home Meds Reported Medications Fluticasone Propionate* (Fluticasone Propionate* Nasal) 50 Mcg/[place] - 16 Gm [place].susp, 1 SPRAY NASAL DAILY, #1 BOTTLE TO EACH NOSTRIL 07/10/17 Nitroglycerin* (Nitrostat*) 0.4 Mg Tab.subl, 0.4 MG SL Q5MIN Y for CHEST PAIN, BOTTLE 07/10/17 Diclofenac Sodium* (Diclofenac Sodium*) 75 Mg Tablet.dr, 75 MG PO BID, #60 TAB 07/10/17 Loratadine* (Loratadine*) 10 Mg Tablet, 10 MG PO DAILY, #30 TAB 07/10/17 Gabapentin* (Gabapentin*) 300 Mg Capsule, 300 MG PO DAILY, #60 CAP 07/10/17 Pantoprazole* (Pantoprazole*) 40 Mg Tablet.dr, 40 MG PO DAILY, TAB 07/10/17 Levothyroxine Sodium* (Levothyroxine Sodium*) 150 Mcg Tablet, 150 MCG PO BEFORE BREAKFAST, #30 TAB 07/10/17 Aspirin* (Aspirin* EC) 81 Mg Tablet.dr, 81 MG PO DAILY, TAB 07/10/17 Atorvastatin* (Atorvastatin*) 40 Mg Tablet, 40 MG PO QHS, #30 TAB 07/10/17 Amlodipine Besylate* (Amlodipine Besylate*) 10 Mg Tablet, 10 MG PO DAILY, #30 TAB 07/10/17 Furosemide* (Furosemide*) 20 Mg Tablet, 20 MG PO DAILY, #60 TAB 07/10/17 Losartan-Hydrochlorothiazide (Losartan-HCTZ) 100-25 Mg Tab, 1 TAB PO DAILY, TAB 07/10/17 Potassium Chloride* (Potassium Chloride*) 8 Meq Capsule.er, 8 MEQ PO DAILY, CAP 07/10/17 Carvedilol* (Carvedilol*) 6.25 Mg Tablet, 6.25 MG PO BID, #60 TAB 07/10/17 Metformin Hcl* (Metformin Hcl*) 1,000 Mg Tablet, 1000 MG PO WITH BREAKFAST DINNE , #60 TAB 07/10/17 Discontinued Scripts Prednisone* (Prednisone*) 20 Mg Tab, 40 MG PO DAILY for 4 Days, TAB Prov:MORRIS POON PA-C 07/02/17 Naproxen* (Naprosyn*) 500 Mg Tablet, 500 MG PO BID Y for PAIN AND/OR INFLAMMATION, #30 TAB Prov:MORRIS POON PA-C 07/02/17 Tramadol HCl (Tramadol HCl) 50 Mg Tablet, 50 MG PO Q4 Y for PAIN, #20 TAB Prov:MORRIS POON PA-C 07/02/17 Follow-up Plan Follow-up for pacemaker check in 7-[address] Guzman, follow up with PCP in 1-2 weeks Primary Care Provider Pamela Clinton MD Time spent on discharge: > 30 minutes LATRICE LUI Jul 16, 2017 15:33
== END 2017-07-16 17:42 | disposition home or self-care (01) | DRG 242 ==
LOC: E/R 15:14 → MS4 22:15 → ICU 07-11 03:00 → TEL 07-12 15:30
PROVIDERS: ADMIT Family Medicine; ATTEND Family Medicine
PROC: 0JH604Z Insertion of Pacemaker, Single Chamber into Chest Subcutaneous Tissue and Fascia, Open Approach (ICD-10-PCS; principal; 2017-07-15 07:30)
PROC: 02HK3JZ Insertion of Pacemaker Lead into Right Ventricle, Percutaneous Approach (ICD-10-PCS; 2017-07-15 07:30)
DX: I44.2 Atrioventricular block, complete (principal); A41.9 Sepsis, unspecified organism; I11.0 Hypertensive heart disease with heart failure; I50.30 Unspecified diastolic (congestive) heart failure; N39.0 Urinary tract infection, site not specified; E11.9 Type 2 diabetes mellitus without complications; D50.9 Iron deficiency anemia, unspecified; E87.6 Hypokalemia; E05.90 Thyrotoxicosis, unspecified without thyrotoxic crisis or storm
CPT/HCPCS: 36415; 70450; 71010; 80048; 80053; 80061; 80076; 81001; 82550; 82553; 82728; 82962; 83036; 83540; 83605; 83735; 83880; 84132; 84436; 84443; 84479; 84484; 85025; 85378; 85610; 85730; 87040; 87081; 87086; 93005; 93306; 93880; 96374; 96375; J0461; J0690; J0696; J1650; J1815; J1956; J2250; J2543; J2916; J3010; J3370; J3475; J3480; J7030; J7050

== ENCOUNTER 2017-09-19 15:58 | Inpatient (IN) | payer OTHER ==
[~2017-09-19] VITALS: Ht 162.6 cm; Wt 70.3 kg
[~2017-09-19 15:58] MED LIST changes: +AMLO-147 PO; +ASPI-664 PO; +ATOR40TA68 PO; +CARV6.2579 PO; +DICL75TA2 PO; +FLUT16SP17 NASAL; +FURO20TA3 PO; +GABA300C16 PO; +LEVO150T67 PO; +LORA10TA3 PO; +LOSA1TAB20 PO; +METF1000 PO; -NAPR-260 PO; +NIT4 SL; +PANT40TA4 PO; +POTA8CAP PO; -PRED20TA PO; -TRAM50TA2 PO
[2017-09-19 16:01] VITALS: Ht 162.6 cm; Wt 70.3 kg
[2017-09-19 17:00] VITALS: TEMP 98.2
[2017-09-19] MEDS ORDERED: ASPIRIN 81 MG TAB PO ONE (17:00)
--- NOTE | 2017-09-19 17:02 | ERD ---
ER Documentation Chief Complaint Chief Complaint BIB SELF C/O LEFT SIDED CHEST PAIN X 3 DAYS. HAS PACEMAKER. NAUSEA HPI This is a 62-year-old female with a past medical history of hypertension, hyperlipidemia, GERD, hypothyroidism, diabetes, coronary artery disease with previous NH in July of this year without any invasive intervention, currently on an aspirin daily with nitro as needed, who is presenting with moderate left-sided chest pain for 3 days. She describes the pain as a moderate pressure and tightness. The patient states that in addition to her chest pain, she also endorses intermittent pinching sensation that she reports coming from her pacemaker. The patient endorses associated dyspnea, worsening with exertion, intermittent diaphoresis, fatigue, mild occipital headache, intermittent dizziness that is worse with standing, and shoulder discomfort. She has not taken any aspirin or nitroglycerin today. The patient denies feeling sick recently. The patient denies fever or chills. The patient has had no vision changes. The patient does not endorse neck or back pain. The patient denies dizziness. The patient denies nausea or vomiting. The patient denies abdominal pain or changes to bowel movements or urination. The patient has had no focal deficits. The patient has had no weakness or numbness or tingling to the face or extremities. ROS All systems reviewed and are negative except as per history of present illness. Medications Home Meds Reported Medications Fluticasone Propionate* (Fluticasone Propionate* Nasal) 50 Mcg/[place] - 16 Gm [place].susp, 1 SPRAY NASAL DAILY, #1 BOTTLE TO EACH NOSTRIL 07/10/17 Nitroglycerin* (Nitrostat*) 0.4 Mg Tab.subl, 0.4 MG SL Q5MIN Y for CHEST PAIN, BOTTLE 07/10/17 Diclofenac Sodium* (Diclofenac Sodium*) 75 Mg Tablet.dr, 75 MG PO BID, #60 TAB 07/10/17 Loratadine* (Loratadine*) 10 Mg Tablet, 10 MG PO DAILY, #30 TAB 07/10/17 Gabapentin* (Gabapentin*) 300 Mg Capsule, 300 MG PO DAILY, #60 CAP 07/10/17 Pantoprazole* (Pantoprazole*) 40 Mg Tablet.dr, 40 MG PO DAILY, TAB 07/10/17 Levothyroxine Sodium* (Levothyroxine Sodium*) 150 Mcg Tablet, 150 MCG PO BEFORE BREAKFAST, #30 TAB 07/10/17 Aspirin* (Aspirin* EC) 81 Mg Tablet.dr, 81 MG PO DAILY, TAB 07/10/17 Atorvastatin* (Atorvastatin*) 40 Mg Tablet, 40 MG PO QHS, #30 TAB 07/10/17 Amlodipine Besylate* (Amlodipine Besylate*) 10 Mg Tablet, 10 MG PO DAILY, #30 TAB 07/10/17 Furosemide* (Furosemide*) 20 Mg Tablet, 20 MG PO DAILY, #60 TAB 07/10/17 Losartan-Hydrochlorothiazide (Losartan-HCTZ) 100-25 Mg Tab, 1 TAB PO DAILY, TAB 07/10/17 Potassium Chloride* (Potassium Chloride*) 8 Meq Capsule.er, 8 MEQ PO DAILY, CAP 07/10/17 Carvedilol* (Carvedilol*) 6.25 Mg Tablet, 6.25 MG PO BID, #60 TAB 07/10/17 Metformin Hcl* (Metformin Hcl*) 1,000 Mg Tablet, 1000 MG PO WITH BREAKFAST DINNE , #60 TAB 07/10/17 Allergies Allergies: Coded Allergies: No Known Allergy (Unverified , 07/10/17) PMhx/Soc History of Surgery: Yes (bilateral hip surgery) Anesthesia Reaction: No Hx Neurological Disorder: No Hx Respiratory Disorders: No Hx Cardiac Disorders: Yes (HTN, HLD, DM, CHF) Hx Psychiatric Problems: No Hx Miscellaneous Medical Probl: Yes (constipation) Hx Alcohol Use: No Hx Substance Use: No Hx Tobacco Use: No FmHx Family History: diabetes (sister), other (stroke (father)), No coronary disease Physical Exam Vitals Vital Signs Date Time Temp Pulse Resp B/P Pulse Ox O2 Delivery O2 Flow Rate FiO2 09/19/17 18:42 60 13 113/69 100 Nasal Cannula 2.0 09/19/17 18:15 60 18 122/68 100 Nasal Cannula 1.0 09/19/17 17:00 98.2 63 19 133/74 100 Nasal Cannula 1.0 09/19/17 17:00 Nasal Cannula 1 09/19/17 16:01 97.9 75 20 139/69 98 Physical Exam Const: No apparent distress, well-developed, cachectic Head: Normocephalic, Atraumatic Eyes: Normal Conjunctiva. Extraocular movements intact. Pupils equal, round and reactive to light ENT: Normal External Ears, Nose and Mouth. Neck: Full range of motion. No meningismus. Resp: + Bibasilar rales, No wheezes or rhonchi Cardio: Regular rate and rhythm. No murmurs, rubs or gallops. Pacemaker in Left upper chest, well healed surgical scar. Abd: BMI 26. Soft, non tender, non distended. Normal bowel sounds. Skin: No petechiae or rashes. Back: No midline tenderness. No CVA tenderness. Ext: No cyanosis, or edema. Neur: Awake and alert, oriented 4. Cranial nerves intact. No facial droop. Normal strength, sensation and coordination. Psych: Normal Mood and Affect. Result Diagram: 09/19/17 1720 09/19/17 1720 Results 24 hrs Laboratory Tests Test 09/19/17 17:20 White Blood Count 7.410^3/ul Red Blood Count 4.9410^6/ul Hemoglobin 13.4g/dl Hematocrit 39.6% Mean Corpuscular Volume 80.2fl Mean Corpuscular Hemoglobin 27.1pg Mean Corpuscular Hemoglobin Concent 33.8g/dl Red Cell Distribution Width 15.7% Platelet Count 94183^3/UL Mean Platelet Volume 10.5fl Neutrophils % 49.5% Lymphocytes % 39.1% Monocytes % 7.8% Eosinophils % 3.0% Basophils % 0.5% Nucleated Red Blood Cells % 0.0/100WBC Neutrophils # 3.710^3/ul Lymphocytes # 2.910^3/ul Monocytes # 0.610^3/ul Eosinophils # 0.210^3/ul Basophils # 0.010^3/ul Nucleated Red Blood Cells # 0.010^3/ul Sodium Level 137mmol/L Potassium Level 3.8mmol/L Chloride Level 97mmol/L Carbon Dioxide Level 30mmol/L Anion Gap 14 Blood Urea Nitrogen 6mg/dl Creatinine 0.74mg/dl Glucose Level 115mg/dl Calcium Level 9.6mg/dl Troponin I < 0.012ng/ml B-Type Natriuretic Peptide 36PG/ML Current Medications Medications (Trade) Dose Ordered Sig/Yuniel Route PRN Reason Start Time Stop Time Status Last Admin Dose Admin Aspirin (Aspirin) 324 mg ONCE ONCE PO 09/19/17 17:00 09/19/17 17:01 DC 09/19/17 17:56 Procedures/MDM MDM The patient's presentation warrants further investigation. The patient has multiple cardiac risk factors in addition to a recent NH that was medically managed. I am concerned that her symptoms could be associated with a cardiac etiology. A cardiac workup will be performed. There is also a possibility of the pacemaker misfiring. The pacemaker may require interrogation. The patient will be given aspirin in the emergency department. LABS The patient's blood work was obtained and reviewed. The patient's CBC shows no leukocytosis and no left shift. The patient is afebrile and does not appear systemically ill. I do not suspect a systemic infection. The patient is not anemic today. The patient's platelet count is unremarkable. The patient's BMP shows no signs of metabolic or electrolyte emergencies. The patient has unremarkable renal function testing. Troponin is negative. EKG EKG read by me: Rate/Rhythm: Regular rate and rhythm at a rate of 63 bpm Intervals: Normal [place] interval and QTc. Prolonged QRS duration in the form of a left bundle branch block. [place]: Left shifted Impression: No evidence of acute ischemia or arrhythmia EKG read by me from 07/11/2017: Rate/Rhythm: Sinus tachycardia with occasional PVCs at 116 bpm Intervals: Normal [place] interval. Prolonged QRS and QTc, left bundle branch block [place]: Left shifted Impression: Tachycardia with left bundle branch block, does not meet [place] criteria for STEMI IMAGING CXR FINDINGS: As before there is left chest dual lead pacemaker. The heart is normal in size. The pulmonary vessels are normal in caliber. The lungs are clear. The costophrenic angles are sharp. The visualized bony thorax is unremarkable. IMPRESSION: No acute cardiopulmonary disease. Pacemaker Electronically viewed and signed by .Delbert White MD, on 09/19/2017 17:44 TREATMENT/DISPOSITION The patient was given aspirin in the ER with some improvement of her symptoms. The patient has a heart score of 5 for age, risk factors, moderate suspicion and nonspecific EKG changes with a normal troponin. The patient had a recent NH without invasive intervention and medical management only. There is possible progression of disease. Patient has a [employer] pacemaker and the company was called to interrogate the pacemaker. At this time, I feel that the patient requires admission for further evaluation and management. The patient will be admitted to Panel in accordance with the patient's insurance. The patient was accepted by Dr. Elliot at 7:30 PM on September 19, 2017 to telemetry. Departure Diagnosis: Primary Impression: Chest pain Chest pain type: unspecified Qualified Code: R07.9 - Chest pain, unspecified type Condition: ROBIN Zapata MD Sep 19, 2017 17:02 ROBIN URENA MD Sep 19, 2017 17:02
[2017-09-19 17:40] LABS: BASOPHILS % 0.5 % (0.0-2.0); EOSINOPHILS # 0.2 10^3/ul (0.0-0.5); HEMATOCRIT 39.6 % (37.0-47.0); HEMOGLOBIN 13.4 g/dl (12.0-16.0); LYMPHOCYTES # 2.9 10^3/ul (0.8-2.9); LYMPHOCYTES % 39.1 % (15.0-51.0); MEAN CORPUSCULAR HEMOGLOBIN 27.1 pg (29.0-33.0); MEAN CORPUSCULAR HGB CONC 33.8 g/dl (32.0-37.0); MEAN CORPUSCULAR VOLUME 80.2 fl (82.0-101.0); MEAN PLATELET VOLUME 10.5 fl (7.4-10.4); MONOCYTE # 0.6 10^3/ul (0.3-0.9); MONOCYTES % 7.8 % (0.0-11.0); NEUTROPHIL # 3.7 10^3/ul (1.6-7.5); NEUTROPHILS % 49.5 % (39.0-77.0); PLATELET COUNT 264 10^3/UL (140-415); RED BLOOD COUNT 4.94 10^6/ul (4.20-5.40); RED CELL DISTRIBUTION WIDTH 15.7 % (11.5-14.5); WHITE BLOOD COUNT 7.4 10^3/ul (4.8-10.8)
--- NOTE | 2017-09-19 17:44 | RADRPT ---
PROCEDURE: Chest x-ray CLINICAL INDICATION: Chest pain TECHNIQUE: Chest single view COMPARISON: 07/15/2017 FINDINGS: As before there is left chest dual lead pacemaker. The heart is normal in size. The pulmonary vesse ls are normal in caliber. The lungs are clear. The costophrenic angles are sharp. The visualized bony thorax is unremarkable. IMPRESSION: No acute cardiopulmonary disease. Pacemaker RPTAT: HH .Delbert White MD, MD Date Time Electronically viewed and signed by .Delbert White MD, on 09/19/2017 17:44 .W/
[2017-09-19 17:59] LABS: ANION GAP 14 (8-16); BLOOD UREA NITROGEN 6 mg/dl (7-20); CALCIUM 9.6 mg/dl (8.4-10.2); CARBON DIOXIDE 30 mmol/L (21-31); CHLORIDE 97 mmol/L (97-110); CREATININE 0.74 mg/dl (0.44-1.00); GLUCOSE 115 mg/dl (70-220); POTASSIUM 3.8 mmol/L (3.5-5.1); SODIUM 137 mmol/L (135-144)
[2017-09-19 18:11] LABS: B-TYPE NATRIURETIC PEPTIDE 36 PG/ML (0-125)
[2017-09-19 18:14] LABS: TROPONIN-I < 0.012 ng/ml (0.00-0.12)
[2017-09-19] MEDS ORDERED: ACETAMINOPHEN 325 MG TAB PO PRN (20:00)
[2017-09-19] MEDS ORDERED: ONDANSETRON 4 MG INJ IV PRN ×2 (20:00→22:00)
[2017-09-19 20:53] VITALS: PULSE 60
[2017-09-19 21:01] VITALS: BP 128/63; RESP 20
[2017-09-19] MEDS ORDERED: LEVO75TA5 PO (21:56)
[2017-09-19] MEDS ORDERED: NACL 0.9% 3 ML SYG IV SCH (22:00)
[2017-09-19] MEDS: ATORVASTATIN 40 MG TAB PO SCH (23:17)
[2017-09-19 23:38] LABS: CREATINE KINASE 82 IU/L (23-200)
[2017-09-19 23:49] LABS: CK-MB 1.01 ng/ml (0.0-2.4)
[2017-09-19 23:50] LABS: TROPONIN-I < 0.012 ng/ml (0.00-0.12)
[2017-09-20] VITALS (13 sets, daily range): BP systolic 100–135; BP diastolic 55–62; PULSE 60–62; RESP 18–20
[2017-09-20] MEDS ORDERED: LEVOTHYROXINE 150 MCG TAB PO SCH (07:00)
[2017-09-20 07:54] LABS: BASOPHILS % 0.5 % (0.0-2.0); EOSINOPHILS # 0.2 10^3/ul (0.0-0.5); EOSINOPHILS % 2.6 % (0.0-7.0); HEMATOCRIT 38.1 % (37.0-47.0); HEMOGLOBIN 12.7 g/dl (12.0-16.0); LYMPHOCYTES # 2.6 10^3/ul (0.8-2.9); LYMPHOCYTES % 40.8 % (15.0-51.0); MEAN CORPUSCULAR HEMOGLOBIN 26.9 pg (29.0-33.0); MEAN CORPUSCULAR HGB CONC 33.3 g/dl (32.0-37.0); MEAN CORPUSCULAR VOLUME 80.7 fl (82.0-101.0); MEAN PLATELET VOLUME 10.4 fl (7.4-10.4); MONOCYTE # 0.4 10^3/ul (0.3-0.9); MONOCYTES % 6.9 % (0.0-11.0); NEUTROPHIL # 3.1 10^3/ul (1.6-7.5); PLATELET COUNT 229 10^3/UL (140-415); RED BLOOD COUNT 4.72 10^6/ul (4.20-5.40); RED CELL DISTRIBUTION WIDTH 16.1 % (11.5-14.5); WHITE BLOOD COUNT 6.3 10^3/ul (4.8-10.8)
[2017-09-20 08:35] LABS: CREATINE KINASE 75 IU/L (23-200)
[2017-09-20 08:42] LABS: CK-MB 0.82 ng/ml (0.0-2.4)
[2017-09-20] MEDS: ACETAMINOPHEN 325 MG TAB PO PRN (08:44)
[2017-09-20] MEDS: FLUTICASONE 0.05% 16 GM NAS SPRAY NASAL SCH (08:45)
[2017-09-20] MEDS: LORATADINE 10 MG TAB PO SCH (08:45)
[2017-09-20] MEDS: PANTOPRAZOLE (EC) 40 MG TAB PO SCH (08:46)
[2017-09-20] MEDS: FUROSEMIDE 20 MG TAB PO SCH (08:46)
[2017-09-20 08:47] LABS: ALBUMIN 3.7 g/dl (3.3-4.9); ALBUMIN/GLOBULIN RATIO 1.23; BILIRUBIN,INDIRECT 0.4 mg/dl (0-1.1); BILIRUBIN,TOTAL 0.4 mg/dl (0.2-1.3); CALCIUM 9.7 mg/dl (8.4-10.2); CREATININE 0.7 mg/dl (0.44-1.00); POTASSIUM 4.7 mmol/L (3.5-5.1); TOTAL PROTEIN 6.7 g/dl (6.1-8.1); TROPONIN-I < 0.012 ng/ml (0.00-0.12)
[2017-09-20] MEDS: GABAPENTIN 300 MG CAP PO SCH (08:47)
[2017-09-20] MEDS: POTASSIUM CHLORIDE (SR) 8 MEQ CAP PO SCH (08:47)
[2017-09-20] MEDS: ASPIRIN (EC) 81 MG TAB PO SCH (08:47)
[2017-09-20] MEDS: LOSARTAN 50 MG TAB PO SCH (08:47)
[2017-09-20] MEDS: HYDROCHLOROTHIAZIDE 25 MG TAB PO SCH (08:47)
[2017-09-20] MEDS: AMLODIPINE 10 MG TAB PO SCH (08:48)
[2017-09-20] MEDS ORDERED: INFLUENZA VIRUS VACCINE 0.5 ML (DISPENSING) IM* ONE (09:00)
[2017-09-20 09:15] LABS: THYROID STIMULATING HORMONE 1.05 MIU/L (0.465-4.680)
--- NOTE | 2017-09-20 09:33 | HP ---
Date/Time of Note Date/Time of Note DATE: 09/20/17 TIME: 09:22 Assessment/Plan VTE Prophylaxis VTE Prophylaxis Intervention: SCD's Lines/Catheters IV Catheter Type (from Nrs): [place] Urinary Cath still in place: No Assessment/Plan Chief Complaint/Hosp Course This a 52-year-old female being admitted to the telemetry floor for: #1 chest pain: Rule out ACS versus arrhythmia versus underlying cardiac equipment defect: At the current time will trend cardiac troponins 3, [employer] has been contacted for pacemaker interrogation, will consult cardiology. Monitor on telemetry. Continue patient's home medications. Evaluate for any electrolyte abnormalities. #2 possible pacemaker dysfunction: At the current time will await interrogation by [employer]. Await cardiology recommendations. Patient has pain at the site of the pacemaker insertion she is currently afebrile in the surgical site appears clean without any drainage. Will continue monitor this may need to be evaluated by CT surgery however will defer this to cardiology. #3 diabetes mellitus: Insulin sliding scale, hold home medications #4 hypothyroidism: Recent TSH was within normal values, continue home levothyroxine dose. #5 hypertension: We will resume patient on medications, we will hold the beta- diane at this time. #6 DVT and GI prophylaxis: SCD, home PPI Further Treatment strategy will be implemented as per the clinical course. Problems: HPI/ROS Admit Date/Time Admit Date/Time Sep 19, 2017 at 19:35 Hx of Present Illness cc: left sided chest pain This is a 62-year-old female with a past medical history of hypertension, hyperlipidemia, GERD, hypothyroidism, diabetes, coronary artery disease with previous [place] in July of this year without any invasive intervention, currently on an aspirin daily with nitro as needed, who is presenting with moderate left-sided chest pain for 3 days. She describes the pain as a moderate pressure and tightness. The patient states that in addition to her chest pain, she also endorses intermittent pinching sensation that she reports coming from her pacemaker. The patient endorses associated dyspnea, worsening with exertion, intermittent diaphoresis, fatigue, mild occipital headache, intermittent dizziness that is worse with standing, and shoulder discomfort. She has not taken any aspirin or nitroglycerin today. The patient denies feeling sick recently. The patient denies fever or chills. The patient has had no vision changes. The patient does not endorse neck or back pain. The patient denies dizziness. The patient denies nausea or vomiting. The patient denies abdominal pain or changes to bowel movements or urination. The patient has had no focal deficits. The patient has had no weakness or numbness or tingling to the face or extremities. allergies: nkda meds: see eddie COLLAZO Const: As per HPI Eyes : No pain discharge or redness or change in visual acuity ENT: No pain, sore throat, congestion, congestion, dysphagia or discharge Respiratory: No shortness of breath, cough, sputum, wheezing, or pleuritic pain Cardiovascular: As per HPI GI : no change in appetite, abdominal pain, nausea, vomiting, diarrhea, constipation, or change in the color his stool Genitourinary: No dysuria, hematuria, flank pain , discharge or CVA tenderness Musculoskeletal: As per HPI Skin: No rash, bruising or hives Neuro: No headache, dizziness, syncope, seizure, focal weakness Endocrine: No polyuria, polydipsia, temperature intolerance Psych: No hallucination, depression, anxiety or suicidal ideation PMH/Family/Social Past Medical History Intermittent heart block status post pacemaker 07/15/2017, hypothyroidism, diabetes mellitus, hypertension left bundle branch block Past Surgical History Pacemaker placement on 07/15/2017, Bilateral hip surgery, left knee surgery, C- section 1 Past Surgical Hx: other Family History Significant Family History: hypertension Social History Alcohol Use: none (That) Smoking Status: Never smoker Drug Use: none Exam/Review of Systems Vital Signs Vitals Vital Signs Date Time Temp Pulse Resp B/P Pulse Ox O2 Delivery O2 Flow Rate FiO2 09/20/17 08:17 Nasal Cannula 2.0 09/20/17 08:00 62 09/20/17 07:49 97.9 20 135/62 97 Intake and Output 09/19/17 09/19/17 09/20/17 14:59 22:59 06:59 Intake Total 270 ml Balance 270 ml Exam Exam General: She is lying in bed in no acute distress HEENT: Atraumatic, normocephalic. The pupils are equal, round and reactive. Extraocular motor are intact Neck: Supple with full range of motion. No rigidity or meningismus Chest: Tender to palpation at the area of the pacemaker Lungs: Clear to auscultation bilaterally no crackles rales or wheezing Heart: Normal S1-S2, Regular rhythm and rate no overt murmurs appreciated Abdomen: Soft , nontender, nondistended , bowel sounds are present. No guarding no rebound tenderness , No masses or organomegaly. No costovertebral temporal angle mass Extremities: Normal to inspection, no edema no cyanosis Neurologic: Normal mental status, speech normal, cranial nerves II through XII are intact, motor and sensory are intact, no focal weakness Additional Comments PROCEDURE: Chest x-ray CLINICAL INDICATION: Chest pain TECHNIQUE: Chest single view COMPARISON: 07/15/2017 FINDINGS: As before there is left chest dual lead pacemaker. The heart is normal in size. The pulmonary vessels are normal in caliber. The lungs are clear. The costophrenic angles are sharp. The visualized bony thorax is unremarkable. IMPRESSION: No acute cardiopulmonary disease. Pacemaker RPTAT: HH .Delbert White MD, Date Time Electronically viewed and signed by .Delbert White MD, MD on 09/19/2017 17:44 .W/ CC: ROBIN URENA MD EKG : Rate/Rhythm: Regular rate and rhythm at a rate of 63 bpm Intervals: Normal [place] interval and QTc. Prolonged QRS duration in the form of a left bundle branch block. [place]: Left shifted Impression: No evidence of acute ischemia or arrhythmia As per ED physician documentation Labs Result Diagram: 09/20/1771709/20/1718 Medications Medications Current Medications Ondansetron HCl (Zofran Inj) 4 mg Q6H PRN IV NAUSEA AND/OR VOMITING; Start at 22:00 Acetaminophen (Tylenol Tab) 650 mg Q6H PRN PO PAIN LEVEL 1-3 OR FEVER Last administered on 09/20/17 08:44; Admin Dose 650 MG; Start 09/19/17 at 22:00 Amlodipine Besylate (Norvasc) 10 mg DAILY PO Last administered on 09/20/17 08 :48; Admin Dose 10 MG; Start 09/20/17 at 09:00 Aspirin (Halfprin) 81 mg DAILY PO Last administered on 09/20/17 08:47; Admin Dose 81 MG; Start 09/20/17 at 09:00 Atorvastatin Calcium (Lipitor) 40 mg QHS PO Last administered on 09/19/17 23: 17; Admin Dose 40 MG; Start 09/19/17 at 22:00 Fluticasone Propionate (Flonase 0.05% Nasal) 1 spray DAILY NASAL ; Start at 09:00 Furosemide (Lasix) 20 mg DAILY PO Last administered on 09/20/17 08:46; Admin Dose 20 MG; Start 09/20/17 at 09:00 Gabapentin (Neurontin) 300 mg DAILY PO Last administered on 09/20/17 08:47; Admin Dose 300 MG; Start 09/20/17 at 09:00 Loratadine (Claritin) 10 mg DAILY PO ; Start 09/20/17 at 09:00 Pantoprazole (Protonix Tab) 40 mg DAILY PO Last administered on 09/20/17 08: 46; Admin Dose 40 MG; Start 09/20/17 at 09:00 Potassium Chloride (Micro-K) 8 meq DAILY PO Last administered on 09/20/17 08: 47; Admin Dose 8 MEQ; Start 09/20/17 at 09:00 Losartan Potassium (Cozaar) 100 mg DAILY PO Last administered on 09/20/17 08: 47; Admin Dose 100 MG; Start 09/20/17 at 09:00 Hydrochlorothiazide (Hydrochlorothiazide) 25 mg DAILY PO Last administered on 09/20/17 08:47; Admin Dose 25 MG; Start 09/20/17 at 09:00 IDA GEORGE Sep 20, 2017 09:33
--- NOTE | 2017-09-20 13:22 | CONS ---
Date/Time of Note Date/Time of Note DATE: 09/20/17 TIME: 13:19 Assessment/Plan Assessment/Plan Additional Assessment/Plan Atypical chest pain MESSER Pain at Pacer site HTN -normal trops at this time -possible cardiolyte -Pacer to be interrogated -if all normal, d/c plan tomorrow Consultation Date/Type/Reason Admit Date/Time Sep 19, 2017 at 19:35 Hx of Present Illness This is a 62-year-old female with a past medical history of hypertension, hyperlipidemia, GERD, hypothyroidism, diabetes, coronary artery disease with previous MD in July of this year without any invasive intervention, currently on an aspirin daily with nitro as needed, who is presenting with moderate left-sided chest pain for 3 days. She describes the pain as a moderate pressure and tightness. The patient states that in addition to her chest pain, she also endorses intermittent pinching sensation that she reports coming from her pacemaker. The patient endorses associated dyspnea, worsening with exertion, intermittent diaphoresis, fatigue, mild occipital headache, intermittent dizziness that is worse with standing, and shoulder discomfort. She has not taken any aspirin or nitroglycerin today. She has MESSER with no voert chf and stabel at thsi time Past Surgical History Past Surgical Hx: other Social History Alcohol Use: none (That) Smoking Status: Never smoker Drug Use: none Exam/Review of Systems Vital Signs Vitals Vital Signs Date Time Temp Pulse Resp B/P Pulse Ox O2 Delivery O2 Flow Rate FiO2 09/20/17 12:00 60 09/20/17 11:18 98.6 20 112/62 98 09/20/17 08:17 Nasal Cannula 2.0 Intake and Output 09/19/17 09/19/17 09/20/17 15:00 23:00 07:00 Intake Total 270 ml Balance 270 ml Results Result Diagram: 09/20/17 0718 09/20/17 0718 Results 24 hrs Laboratory Tests Test 09/19/17 17:20 09/19/17 22:48 09/20/17 07:18 White Blood Count 7.4 6.3 Red Blood Count 4.94 4.72 Hemoglobin 13.4 # 12.7 Hematocrit 39.6 38.1 Mean Corpuscular Volume 80.2 L 80.7 L Mean Corpuscular Hemoglobin 27.1 L 26.9 L Mean Corpuscular Hemoglobin Concent 33.8 33.3 Red Cell Distribution Width 15.7 H 16.1 H Platelet Count 264 # 229 Mean Platelet Volume 10.5 H 10.4 Neutrophils % 49.5 49.0 Lymphocytes % 39.1 40.8 Monocytes % 7.8 6.9 Eosinophils % 3.0 2.6 Basophils % 0.5 0.5 Nucleated Red Blood Cells % 0.0 0.0 Neutrophils # 3.7 3.1 Lymphocytes # 2.9 2.6 Monocytes # 0.6 0.4 Eosinophils # 0.2 0.2 Basophils # 0.0 0.0 Nucleated Red Blood Cells # 0.0 0.0 Sodium Level 137 141 Potassium Level 3.8 4.7 Chloride Level 97 102 Carbon Dioxide Level 30 30 Anion Gap 14 14 Blood Urea Nitrogen 6 L 8 Creatinine 0.74 0.70 Glucose Level 115 106 Calcium Level 9.6 9.7 Troponin I < 0.012 < 0.012 < 0.012 B-Type Natriuretic Peptide 36 Creatine Kinase 82 75 Creatine Kinase Index 1.2 1.1 Creatinine Kinase MB (Mass) 1.01 0.82 Hemoglobin A1c 5.8 Magnesium Level 2.0 Total Bilirubin 0.4 Direct Bilirubin 0.00 Indirect Bilirubin 0.4 Aspartate Amino Transf (AST/SGOT) 25 Alanine Aminotransferase (ALT/SGPT) 34 Alkaline Phosphatase 84 Total Protein 6.7 Albumin 3.7 Globulin 3.00 Albumin/Globulin Ratio 1.23 Thyroid Stimulating Hormone (TSH) 1.050 Medications Medications Current Medications Ondansetron HCl (Zofran Inj) 4 mg Q6H PRN IV NAUSEA AND/OR VOMITING; Start at 22:00 Acetaminophen (Tylenol Tab) 650 mg Q6H PRN PO PAIN LEVEL 1-3 OR FEVER Last administered on 09/20/17 08:44; Admin Dose 650 MG; Start 09/19/17 at 22:00 Amlodipine Besylate (Norvasc) 10 mg DAILY PO Last administered on 09/20/17 08 :48; Admin Dose 10 MG; Start 09/20/17 at 09:00 Aspirin (Halfprin) 81 mg DAILY PO Last administered on 09/20/17 08:47; Admin Dose 81 MG; Start 09/20/17 at 09:00 Atorvastatin Calcium (Lipitor) 40 mg QHS PO Last administered on 09/19/17 23: 17; Admin Dose 40 MG; Start 09/19/17 at 22:00 Fluticasone Propionate (Flonase 0.05% Nasal) 1 spray DAILY NASAL ; Start at 09:00 Furosemide (Lasix) 20 mg DAILY PO Last administered on 09/20/17 08:46; Admin Dose 20 MG; Start 09/20/17 at 09:00 Gabapentin (Neurontin) 300 mg DAILY PO Last administered on 09/20/17 08:47; Admin Dose 300 MG; Start 09/20/17 at 09:00 Loratadine (Claritin) 10 mg DAILY PO ; Start 09/20/17 at 09:00 Pantoprazole (Protonix Tab) 40 mg DAILY PO Last administered on 09/20/17 08: 46; Admin Dose 40 MG; Start 09/20/17 at 09:00 Potassium Chloride (Micro-K) 8 meq DAILY PO Last administered on 09/20/17 08: 47; Admin Dose 8 MEQ; Start 09/20/17 at 09:00 Losartan Potassium (Cozaar) 100 mg DAILY PO Last administered on 09/20/17 08: 47; Admin Dose 100 MG; Start 09/20/17 at 09:00 Hydrochlorothiazide (Hydrochlorothiazide) 25 mg DAILY PO Last administered on 09/20/17 08:47; Admin Dose 25 MG; Start 09/20/17 at 09:00 Carvedilol (Coreg) 6.25 mg BID PO Last administered on 09/20/17 12:48; Admin Dose 6.25 MG; Start 09/20/17 at 09:30 CHRISTIANA TENA MD Sep 20, 2017 13:22
[2017-09-20] MEDS: ATORVASTATIN 40 MG TAB PO SCH (21:56)
[2017-09-21] VITALS (8 sets, daily range): BP systolic 119–129; BP diastolic 56–60; PULSE 60–69; RESP 16–20
[2017-09-21] MEDS ORDERED: LEVOTHYROXINE 75 MCG TAB PO SCH (07:00)
[2017-09-21] MEDS: FUROSEMIDE 20 MG TAB PO SCH (09:00)
[2017-09-21] MEDS: LOSARTAN 50 MG TAB PO SCH (09:00)
[2017-09-21] MEDS: POTASSIUM CHLORIDE (SR) 8 MEQ CAP PO SCH (09:00)
[2017-09-21] MEDS: ASPIRIN (EC) 81 MG TAB PO SCH (09:00)
[2017-09-21] MEDS: HYDROCHLOROTHIAZIDE 25 MG TAB PO SCH (09:00)
[2017-09-21] MEDS: LORATADINE 10 MG TAB PO SCH (09:00)
[2017-09-21] MEDS: PANTOPRAZOLE (EC) 40 MG TAB PO SCH (09:00)
[2017-09-21] MEDS: AMLODIPINE 10 MG TAB PO SCH (09:00)
[2017-09-21] MEDS: GABAPENTIN 300 MG CAP PO SCH (09:00)
[2017-09-21] MEDS: FLUTICASONE 0.05% 16 GM NAS SPRAY NASAL SCH (10:04)
[2017-09-21] MEDS ORDERED: REGADENOSON 0.4 MG/5 ML SYG ONE (11:10)
--- NOTE | 2017-09-21 12:25 | CONS ---
Date/Time of Note Date/Time of Note DATE: 09/21/17 TIME: 12:18 Consult Date/Type/Reason Admit Date/Time Sep 19, 2017 at 19:35 Initial Consult Date Type of Consultation: card Subjective d/w staff. pt with no more chest pain today no palpitations O: Gen no acute distress HEENT: NCAT CV RRR. systolic murmur pulm: CTA. no wheezing GI: soft NT ND Chest s/p PPM GI soft NT ND ext no C/C/E Objective Vital Signs Date Time Temp Pulse Resp B/P Pulse Ox O2 Delivery O2 Flow Rate FiO2 09/21/17 08:34 60 09/21/17 07:27 98.1 16 119/56 97 09/21/17 04:00 Room Air 09/20/17 08:17 2.0 Intake and Output 09/20/17 09/20/17 09/21/17 15:00 23:00 07:00 Intake Total 150 ml Balance 150 ml Results/Medications Result Diagram: 09/20/1771709/20/1718 Medications Current Medications Ondansetron HCl (Zofran Inj) 4 mg Q6H PRN IV NAUSEA AND/OR VOMITING; Start at 22:00 Acetaminophen (Tylenol Tab) 650 mg Q6H PRN PO PAIN LEVEL 1-3 OR FEVER Last administered on 09/20/17 08:44; Admin Dose 650 MG; Start 09/19/17 at 22:00 Amlodipine Besylate (Norvasc) 10 mg DAILY PO Last administered on 09/20/17 08 :48; Admin Dose 10 MG; Start 09/20/17 at 09:00 Aspirin (Halfprin) 81 mg DAILY PO Last administered on 09/20/17 08:47; Admin Dose 81 MG; Start 09/20/17 at 09:00 Atorvastatin Calcium (Lipitor) 40 mg QHS PO Last administered on 09/20/17 21: 56; Admin Dose 40 MG; Start 09/19/17 at 22:00 Fluticasone Propionate (Flonase 0.05% Nasal) 1 spray DAILY NASAL Last administered on 09/21/17 10:04; Admin Dose 1 SPRAY; Start 09/20/17 at 09:00 Furosemide (Lasix) 20 mg DAILY PO Last administered on 09/20/17 08:46; Admin Dose 20 MG; Start 09/20/17 at 09:00 Gabapentin (Neurontin) 300 mg DAILY PO Last administered on 09/20/17 08:47; Admin Dose 300 MG; Start 09/20/17 at 09:00 Loratadine (Claritin) 10 mg DAILY PO ; Start 09/20/17 at 09:00 Pantoprazole (Protonix Tab) 40 mg DAILY PO Last administered on 09/20/17 08: 46; Admin Dose 40 MG; Start 09/20/17 at 09:00 Potassium Chloride (Micro-K) 8 meq DAILY PO Last administered on 09/20/17 08: 47; Admin Dose 8 MEQ; Start 09/20/17 at 09:00 Losartan Potassium (Cozaar) 100 mg DAILY PO Last administered on 09/20/17 08: 47; Admin Dose 100 MG; Start 09/20/17 at 09:00 Hydrochlorothiazide (Hydrochlorothiazide) 25 mg DAILY PO Last administered on 09/20/17 08:47; Admin Dose 25 MG; Start 09/20/17 at 09:00 Carvedilol (Coreg) 6.25 mg BID PO Last administered on 09/20/17 21:59; Admin Dose 6.25 MG; Start 09/20/17 at 09:30 Assessment/Plan Chief Complaint/Hosp Course Atypical chest pain MESSER Pain at Pacer site HTN sss s/p PPM LEXISCAN TODAY cont risk factor modifications. f/u on lexiscan results BJ CARPENTER MD [facility] Problems: BJ CARPENTER MD Sep 21, 2017 12:25
[2017-09-21] MEDS: ACETAMINOPHEN 325 MG TAB PO PRN ×2 (12:32→18:30)
--- NOTE | 2017-09-21 15:11 | RADRPT ---
PROCEDURE: Lexiscan myocardial perfusion study CLINICAL INDICATION: 62 -year-old patient complaining of chest pain. TECHNIQUE: Lexiscan 0.4 mg intravenously separate acquisition gated myocardial perfusion SPECT usi ng Tc 99m Myoview 33.4 mCi intravenously at stress and Tc-99m Myoview, 11.0 mCi intravenously at res t was performed using the rest/stress sequence. Poststress Myoview SPECT images were obtained in th e supine position. COMPARISON: No prior studies. FINDINGS: Perfusion images reveal a small size mild in degree nonreversible perfusion defect in the septal wal l. Lexiscan post stress gated SPECT images demonstrate a dyskinetic septal wall and no other wall motio n abnormalities. IMPRESSION: 1. No evidence of stress-induced ischemia. 2. Dyskinetic septal wall and no other wall motion abnormalities. 3. The left ventricle ejection fraction at stress is 61%. A call report was made to Dr. Reza at 03:10 p.m. on September 21, 2017. RPTAT: QQ .Rachel Lopez MD, MD Date Time Electronically viewed and signed by .Rachel Lopez MD, on 09/21/2017 15:10 .L/
--- NOTE | 2017-09-21 16:51 | PDOCDIS ---
Discharge Instructions DIAGNOSIS Discharge Diagnosis Atyipcal chest pain CONDITION Patient Condition: Good HOME CARE INSTRUCTIONS: Special Diet: low fat low chol FOLLOW UP/APPOINTMENTS Follow-up Plan Make an appointment to see your radiation oncology nurse within the coming week. You should have your pacemaker looked at in the clinic by your doctor RIKA WHITE MD Sep 21, 2017 16:51
--- NOTE | 2017-09-21 16:51 | DS ---
Date/Time of Note Date/Time of Note DATE: 09/21/17 TIME: 16:50 Discharge Summary Admission/Discharge Info Admit Date/Time Sep 19, 2017 at 19:35 Discharge Date/Time Discharge Diagnosis Atyipcal chest pain Patient Condition: Good Hx of Present Illness cc: left sided chest pain This is a 62-year-old female with a past medical history of hypertension, hyperlipidemia, GERD, hypothyroidism, diabetes, coronary artery disease with previous MT in July of this year without any invasive intervention, currently on an aspirin daily with nitro as needed, who is presenting with moderate left-sided chest pain for 3 days. She describes the pain as a moderate pressure and tightness. The patient states that in addition to her chest pain, she also endorses intermittent pinching sensation that she reports coming from her pacemaker. The patient endorses associated dyspnea, worsening with exertion, intermittent diaphoresis, fatigue, mild occipital headache, intermittent dizziness that is worse with standing, and shoulder discomfort. She has not taken any aspirin or nitroglycerin today. The patient denies feeling sick recently. The patient denies fever or chills. The patient has had no vision changes. The patient does not endorse neck or back pain. The patient denies dizziness. The patient denies nausea or vomiting. The patient denies abdominal pain or changes to bowel movements or urination. The patient has had no focal deficits. The patient has had no weakness or numbness or tingling to the face or extremities. allergies: nkda meds: see [facility] Hospital Course Atypical chest pain MESSER Pain at Pacer site HTN sss s/p PPM LEXISCAN TODAY cont risk factor modifications. f/u on lexiscan results BJ REZA MD [facility] Patient was ruled out for ACS with serial biomarkers and EKG. Her symptoms resolved. Lexiscan stress test was normal. Per Dr Reza, patient safe for discharge with follow up as an outpatient Home Meds Reported Medications Levothyroxine Sodium* (Levothyroxine Sodium*) 75 Mcg Tablet, 75 MCG PO BEFORE BREAKFAST, #30 TAB 09/19/17 Fluticasone Propionate* (Fluticasone Propionate* Nasal) 50 Mcg/[place] - 16 Gm [place].susp, 1 SPRAY NASAL DAILY, #1 BOTTLE TO EACH NOSTRIL 07/10/17 Nitroglycerin* (Nitrostat*) 0.4 Mg Tab.subl, 0.4 MG SL Q5MIN Y for CHEST PAIN, BOTTLE 07/10/17 Diclofenac Sodium* (Diclofenac Sodium*) 75 Mg Tablet.dr, 75 MG PO BID, #60 TAB 07/10/17 Loratadine* (Loratadine*) 10 Mg Tablet, 10 MG PO DAILY, #30 TAB 07/10/17 Gabapentin* (Gabapentin*) 300 Mg Capsule, 300 MG PO DAILY, #60 CAP 07/10/17 Pantoprazole* (Pantoprazole*) 40 Mg Tablet.dr, 40 MG PO DAILY, TAB 07/10/17 Aspirin* (Aspirin* EC) 81 Mg Tablet.dr, 81 MG PO DAILY, TAB 07/10/17 Atorvastatin* (Atorvastatin*) 40 Mg Tablet, 40 MG PO QHS, #30 TAB 07/10/17 Amlodipine Besylate* (Amlodipine Besylate*) 10 Mg Tablet, 10 MG PO DAILY, #30 TAB 07/10/17 Furosemide* (Furosemide*) 20 Mg Tablet, 20 MG PO DAILY, #60 TAB 07/10/17 Losartan-Hydrochlorothiazide (Losartan-HCTZ) 100-25 Mg Tab, 1 TAB PO DAILY, TAB 07/10/17 Potassium Chloride* (Potassium Chloride*) 8 Meq Capsule.er, 8 MEQ PO DAILY, CAP 07/10/17 Carvedilol* (Carvedilol*) 6.25 Mg Tablet, 6.25 MG PO BID, #60 TAB 07/10/17 Metformin Hcl* (Metformin Hcl*) 1,000 Mg Tablet, 1000 MG PO WITH BREAKFAST DINNE , #60 TAB 07/10/17 Discontinued Reported Medications Levothyroxine Sodium* (Levothyroxine Sodium*) 150 Mcg Tablet, 150 MCG PO BEFORE BREAKFAST, #30 TAB 07/10/17 Primary Care Provider MD CHRISTOPHER Morgan,RIKA Portillo MD Sep 21, 2017 16:51
== END 2017-09-21 18:43 | disposition home or self-care (01) | DRG 313 ==
LOC: E/R 15:58 → TEL 19:35
PROVIDERS: ADMIT Family Medicine; ATTEND Family Medicine
DX: R07.89 Other chest pain (principal); I25.2 Old myocardial infarction; I10 Essential (primary) hypertension; E78.5 Hyperlipidemia, unspecified; E03.9 Hypothyroidism, unspecified; E11.9 Type 2 diabetes mellitus without complications; Z95.0 Presence of cardiac pacemaker
CPT/HCPCS: 36415; 71010; 78452; 80048; 80053; 82550; 82553; 83036; 83735; 83880; 84443; 84484; 85025; 90686; 93005; 93017; A9500; A9505; J2785